=== PATIENT | female | born 1950 ===

== ENCOUNTER 2017-05-13 17:05 | Inpatient (IN) | payer MEDICARE ==
[2017-05-13 17:05] VITALS: BMI 23.8
[2017-05-13] MEDS ORDERED: Piperacill/Tazo 3.375gm in Dex 3.375 GM/50 ML BAG IVPB STA (17:39)
[2017-05-13] MEDS ORDERED: Vancomycin 1 gm/NS 200 ml 1 GM/200 ML BAG IVPB STA (17:39)
--- NOTE | 2017-05-13 17:51 | C.PDOC ---
History Of Present Illness 66 year old female with a history of Fibromyalgia, Osteoporosis, and End Stage Renal was brought to the ED via EMS with complaints of chest pain, fever, sweating, and full body aches beginning earlier today while completing hemodialysis. Patient is also complaining of large mass to left breast that has been followed by PMD. Patient was seen in [facility] on 04/24/2017 for pain to legs and arms and was diagnoses with pathological fractures to bilateral lower extremities and right upper extremities. Patient was seen in an ED on 04/25/2017 with similar complaints of total body pain. Patient is currently in a rehabilitation center for lower extremity and right upper extremity. Patient reports she has had mammograms regarding the breast mass with no answers. Patient denies injury, trauma, weakness, numbness, shortness of breath, or other complaints a this time. Home Lending Officer: Dr. Yeboah Time Seen by Provider: 05/13/17 17:14 Chief Complaint (Nursing): Chest Pain History Per: Patient History/Exam Limitations: no limitations Onset/Duration Of Symptoms: Worse Since (earlier today ) Current Symptoms Are (Timing): Still Present Quality: "Pain" Associated Symptoms: denies: Nausea, Dyspnea Modifying Factors: None Exacerbating Factors: None Alleviating Factors: None Recent travel outside of the [place]: No Additional History Per: EMS, Family, Prior Records Past Medical History Reviewed: Historical Data, Nursing Documentation, Vital Signs Vital Signs: Last Vital Signs Temp 101.0 F H 05/13/17 17:33 Pulse 80 05/13/17 17:34 Resp 18 05/13/17 17:33 BP 86/42 L 05/13/17 17:33 Pulse Ox 95 05/13/17 18:10 - Medical History PMH: Anxiety, Arthritis, Diverticulitis, Fibromyalgia, Fractures (Current right leg fx), HTN, Osteoporosis, Pancreatitis, End Stage Renal Disease, Chronic Kidney Disease, TIA Surgical History: Cholecystectomy - [facility] (04/28/17) BUNIONECT/SFT/OSTEOTOMY (06/04/13) IMMOBILIZATION OF LEFT LOWER LEG USING SPLINT (04/28/17) IMMOBILIZATION OF RIGHT UPPER EXTREMITY USING SPLINT (04/28/17) OPEN REDUCT-INT FIX TOE (06/04/13) Family History: States: Unknown Family Hx - Social History Hx Alcohol Use: No Hx Substance Use: No - Immunization History Hx Tetanus Toxoid Vaccination: No Hx Influenza Vaccination: No Hx Pneumococcal Vaccination: No Review Of Systems Constitutional: Positive for: Fever, Other (general full body aches ). Negative for: Chills Cardiovascular: Positive for: Chest Pain. Negative for: Palpitations Respiratory: Negative for: Cough, Shortness of Breath Skin: Positive for: Other (large breast mass ) Physical Exam - Physical Exam Appears: Non-toxic, No Acute Distress Skin: Warm, Dry, No Rash Head: Atraumatic, Normacephalic, No Tenderness Oral Mucosa: Dry Neck: Supple Chest: Symmetrical, No Deformity Cardiovascular: Rhythm Regular, No Murmur Respiratory: No Rales, No Rhonchi, No Wheezing, Other (clear to auscultation bilaterally ) Gastrointestinal/Abdominal: Soft, No Tenderness, No Distention, No Guarding, No Rebound Extremity: Other (bilateral lower extremities and right upper extremity are in splints ) Neurological/Psych: Oriented x3, Other (patient is cooperative ) ED Course And Treatment ECG: Interpreted By Me, Viewed By Me ECG Rhythm: Sinus Rhythm Interpretation Of ECG: No ST elevations or depressions. Rate From EC O2 Sat by Pulse Oximetry: 95 (RA) Pulse Ox Interpretation: Normal - Radiology CXR: Interpreted by Me, Viewed By Me CXR Interpretation: Yes: Other (Bilateral interstital changes ) Progress Note: VBG, EKG, CXR, labs, and blood work were ordered. Patient was given Vancomycin and Piperacillin/Tazobactam IVPB. Medical Decision Making Medical Decision Making: Case discussed with Dr. Douglass. She reports she was treating patient with Zithromycin. Patient has failed out patient treatment for a pneumonia. Disposition Discussed With : Cari Douglass Doctor Will See Patient In The: Hospital Counseled Patient/Family Regarding: Smoking Cessation - Disposition Disposition: HOSPITALIZED Disposition Time: 18:09 Condition: GUARDED Forms: [facility] (Salvadorean) - POA Present On Arrival: None - Clinical Impression Clinical Impression: Pneumonia, Fever - Scribe Statement The provider has reviewed the documentation as recorded by the Scribe Carolyn Altamirano All medical record entries made by the Scribe were at my direction and personally dictated by me. I have reviewed the chart and agree that the record accurately reflects my personal performance of the history, physical exam, medical decision making, and the department course for this patient. I have also personally directed, reviewed, and agree with the discharge instructions and disposition. Decision To Admit - Pt Status Changed To: Hospital Disposition Of: Inpatient - Admit Certification Admit to Inpatient:: After my assessment, the patient will require hospitalization for at least two midnights. This is because of the severity of symptoms shown, intensity of services needed, and/or the medical risk in this patient being treated as an outpatient. - InPatient: Physician Admission Certification: I certify that this patient requires 2 or more midnights of care for the following reason:: failled out patient therapy for pneumonia and fever - . Bed Request Type: Regular Patient Diagnosis: Pneumonia, Fever
--- NOTE | 2017-05-13 18:25 | RAD ---
PROCEDURE: CHEST RADIOGRAPH, 1 VIEW HISTORY: chest pain COMPARISON: None available. FINDINGS: LUNGS: Limited examination. Opacity at both lung bases. Rule out pneumonia. Follow-up advised. PLEURA: No pneumothorax or pleural fluid seen. CARDIOVASCULAR: Congestive change. OSSEOUS STRUCTURES: No significant abnormalities. VISUALIZED UPPER ABDOMEN: Normal. OTHER FINDINGS: Left subclavian vascular stent IMPRESSION: Bibasilar opacities. Congestive change. Pneumonia versus pulmonary edema. . Followup advised.
[2017-05-13 18:29] LABS: VENOUS BLOOD GAS BASE EXCESS 11.6 mmol/L (0.0-2.0); VENOUS BLOOD GAS PCO2 56 mmHg (40-60); VENOUS BLOOD PH 7.44 (7.32-7.43)
[2017-05-13 18:33] LABS: BASO # 0.1 K/uL (0.0-0.2); BASO % 0.2 % (0.0-2.0); EOS # 0.1 K/uL (0.0-0.7); EOS % 0.4 % (0.0-4.0); LYMPH # 0.9 K/uL (1.0-4.3); LYMPH % 3.6 % (20.0-40.0); MEAN CELL VOLUME 97.5 fL (81.0-99.0); MEAN CORPUSCULAR HEMOGLOBIN 32.2 pg (27.0-31.0); MEAN PLATELET VOLUME 8.8 fL (7.2-11.7); MONO # 3.1 K/uL (0.0-0.8); MONO % 11.9 % (0.0-10.0); PLATELET COUNT 251 K/uL (130-400); RED CELL DISTRIBUTION WIDTH 17.4 % (11.5-14.5); WHITE BLOOD COUNT 26.2 K/uL (4.8-10.8)
[2017-05-13 19:56] LABS: NEUTROPHIL 77 % (50-75); TOTAL CELLS COUNTED 100
[2017-05-13 20:43] LABS: BILIRUBIN,TOTAL 3.5 mg/dL (0.2-1.3); CALCIUM 8.9 mg/dl (8.6-10.4); POTASSIUM 3.4 mmol/L (3.6-5.2); TOTAL PROTEIN 7.2 g/dL (6.3-8.3)
[2017-05-13 20:48] LABS: ALB/GLOB RATIO 0.9 (1.0-2.1)
[2017-05-13 21:11] LABS: TROPONIN I 0.012 ng/mL (0.00-0.120)
[2017-05-13] MEDS ORDERED: Sod Polystyrene Sulf 15 gm/60 ml Susp PO PRN (22:42)
[2017-05-13] MEDS ORDERED: Oxycodone/Acetaminophen 5/325 mg Tab ONE (22:48)
[2017-05-13] MEDS: Oxycodone/Acetaminophen 5/325 mg Tab PO PRN (22:52)
[2017-05-14] MEDS ORDERED: Piperacill/Tazo 3.375gm in Dex 3.375 GM/50 ML BAG IVPB SCH ×2 (06:00→14:00)
[2017-05-14] MEDS: Albuterol-Ipratrop 3 mg / 0.5 (3 ml) UD INH SCH ×3 (07:53→20:19)
[2017-05-14] MEDS: Metoprolol Succinate 100 mg XL Tab PO SCH (09:10)
[2017-05-14] MEDS: Calcium-Vit D 500 mg-200 Units Tab UD PO SCH (09:11)
[2017-05-14] MEDS: Piperacill/Tazo 2.25gm in Dex 2.25 GM/50 ML BAG IVPB SCH ×3 (09:43→21:45)
[2017-05-14] MEDS ORDERED: [UNRECOGNIZED DRUG - OTHER] PO SCH (10:00)
--- NOTE | 2017-05-14 10:49 | CP.PCM.HP ---
History of Present Illness - History of Present Illness History of Present Illness: [place] sob cough aching body for few days and didnot imrove with treatment z pzck and tylenol and xray has bilateral infiltrate Present on Admission - Present on Admission Any Indicators Present on Admission: No Review of Systems - Review of Systems Systems not reviewed;Unavailable: Acuity of Condition - Constitutional Constitutional: Anorexia, Fatigue, Fever, Night Sweats - EENT Eyes: As Per HPI Ears: As Per HPI Nose/Mouth/Throat: As Per HPI - Breasts Additional comments: sw[place] red and tender and warm - Cardiovascular Cardiovascular: As Per HPI - Respiratory Respiratory: Chest Congestion - Gastrointestinal Gastrointestinal: Bloating, Constipation Additional comments: no bowel movements for 3 days - Genitourinary Genitourinary: As Per HPI - Reproductive: Female Reproductive:Female: As Per HPI - Menstruation Menstruation: As Per HPI, Post Menopausal - Musculoskeletal Additional comments: has fx arms and leg - Integumentary Integumentary: As Per HPI - Neurological Neurological: As Per HPI - Psychiatric Psychiatric: Depression - Endocrine Endocrine: As Per HPI - Hematologic/Lymphatic Hematologic: As Per HPI Past Patient History - Infectious Disease Hx of Infectious Diseases: None - Past Medical History & Family History Past Medical History?: Yes - Past Social History Smoking Status: Never Smoked - CARDIAC Hx Hypertension: Yes - PULMONARY Hx Respiratory Disorders: No - NEUROLOGICAL Hx Transient Ischemic Attacks (TIA): Yes - HEENT Hx HEENT Problems: No - RENAL Hx Chronic Kidney Disease: Yes Date of Last Dialysis Treatment: 05/13/17 - ENDOCRINE/METABOLIC Hx Endocrine Disorders: No - HEMATOLOGICAL/ONCOLOGICAL Hx Blood Disorders: Yes Hx Blood Transfusions: Yes Hx Blood Transfusion Reaction: Yes Hx Shingles: Yes (right arm) - INTEGUMENTARY Hx Dermatological Problems: No - MUSCULOSKELETAL/RHEUMATOLOGICAL Hx Arthritis: Yes Hx Falls: Yes Hx Fractures: Yes (Current right leg fx, RUE, LLE) Hx Osteoporosis: Yes - GASTROINTESTINAL Hx Diverticulitis: Yes Hx Pancreatitis: Yes - GENITOURINARY/GYNECOLOGICAL Hx Genitourinary Disorders: No Other/Comment: DIALYSIS PATIENT - PSYCHIATRIC Hx Anxiety: Yes Hx Substance Use: No - SURGICAL HISTORY Hx Cholecystectomy: Yes - ANESTHESIA Hx Anesthesia: Yes Hx Anesthesia Reactions: No Hx Malignant Hyperthermia: No Meds Allergies/Adverse Reactions: Allergies Allergy/AdvReac Type Severity Reaction Status Date / Time aspirin Allergy NAUSEA Verified 05/13/17 17:14 lactose Allergy NAUSEA Verified 05/13/17 17:14 Physical Exam - Constitutional Appears: In Acute Distress - Head Exam Head Exam: ATRAUMATIC - Eye Exam Eye Exam: Normal appearance Pupil Exam: NORMAL ACCOMODATION - ENT Exam ENT Exam: Mucous Membranes Moist - Neck Exam Neck exam: Positive for: Full Rom - Respiratory Exam Respiratory Exam: Decreased Breath Sounds, Rales - Cardiovascular Exam Cardiovascular Exam: REGULAR RHYTHM - GI/Abdominal Exam GI & Abdominal Exam: Distended - Rectal Exam Rectal Exam: NORMAL INSPECTION - Exam Exam: NORMAL INSPECTION - Extremities Exam Extremities exam: Positive for: normal inspection - Back Exam Back exam: NORMAL INSPECTION - Neurological Exam Neurological exam: Oriented x3 - Psychiatric Exam Psychiatric exam: Normal Affect - Skin Skin Exam: Normal Color Results - Vital Signs Recent Vital Signs: Last Vital Signs Temp 98.1 F 05/14/17 07:58 Pulse 66 05/14/17 07:58 Resp 18 05/14/17 07:58 BP 124/63 05/14/17 07:58 Pulse Ox 97 05/14/17 07:58 - Labs Result Diagrams: 05/13/17 18:24 05/13/17 20:17 Labs: Laboratory Results - last 24 hr 05/13/17 05/13/17 05/13/17 18:24 18:25 20:17 WBC 26.2 H D RBC 2.88 L Hgb 9.3 L Hct 28.0 L MCV 97.5 D MCH 32.2 H MCHC 33.0 RDW 17.4 H Plt Count 251 MPV 8.8 Neut % (Auto) 83.9 H Lymph % (Auto) 3.6 L [place] % (Auto) 11.9 H Eos % (Auto) 0.4 Baso % (Auto) 0.2 Neut # 22.0 H Lymph # 0.9 L [place] # 3.1 H Eos # 0.1 Baso # 0.1 Neutrophils % (Manual) 77 H Lymphocytes % (Manual) 11 L Monocytes % (Manual) 12 H Platelet Estimate Normal Poikilocytosis (manual Slight Anisocytosis (manual) Slight pO2 26 L VBG pH 7.44 H VBG pCO2 56 VBG HCO3 32.7 VBG Total CO2 39.7 H VBG O2 Sat (Calc) 57.1 VBG Base Excess 11.6 H VBG Potassium 6.0 H Sodium 137.0 135 Chloride 103.0 92 L Glucose 86 Lactate 1.9 Potassium 3.4 L Carbon Dioxide 32 H Anion Gap 14 BUN 19 H Creatinine 2.5 H Est GFR ( Amer) 23 Est GFR (Non-Af Amer) 19 Random Glucose 85 Calcium 8.9 Total Bilirubin 3.5 H AST 36 ALT 31 Alkaline Phosphatase 355 H D Troponin I 0.0120 NT-Pro-B Natriuret Pep 950812 H Total Protein 7.2 Albumin 3.4 L D Globulin 3.8 Albumin/Globulin Ratio 0.9 L Venous Blood Potassium 6.0 H Assessment & Plan - Assessment and Plan (Free Text) Assessment: ac bi;lateral pnumonia ESRF FX ARM AND LEG Plan: PER PRDERS - Date & Time Date: 05/14/17 Time: 10:54
[2017-05-14] MEDS: Azithromycin 500 MG in Sodium Chloride 0.9% 250 ML IVPB SCH (10:55)
[2017-05-14] MEDS ORDERED: Sod Polystyrene Sulf 15 gm/60 ml Susp PO PRN (12:49)
--- NOTE | 2017-05-14 13:28 | CARD ---
APPROVED REPORT EKG Measurement Heart [id number] <Conclusion> Normal sinus rhythm Cannot rule out Anterior infarct, age undetermined Abnormal ECG
[2017-05-14] MEDS: Oxycodone/Acetaminophen 5/325 mg Tab PO PRN ×2 (14:04→22:05)
--- NOTE | 2017-05-14 16:02 | RAD ---
PROCEDURE: Radiographs of the Right Forearm HISTORY: fracture COMPARISON: Comparison is made to the previous exam dated 04/28/2017. TECHNIQUE: Frontal and lateral views obtained. FINDINGS: BONES: The right forearm is again seen in cast which limits the evaluation for fine details. Subacute fracture at the midshaft of the right radius and ulnar bones are again seen. The right radius fracture is mildly displaced. No evidence of significant callus formation noted around the right radius fracture. Callus formation is again noted around the right ulnar fracture. JOINT SPACES: Unremarkable. OTHER FINDINGS: None. IMPRESSION: Findings have not significantly changed when compared to the previous exam. Angulated mildly displaced fracture at the midshaft of the right radius is again noted without evidence of significant callus formation. Healed fracture at the midshaft of the right ulnar bone surrounding with callus formation is again noted.
--- NOTE | 2017-05-14 16:04 | RAD ---
PROCEDURE: Left Ankle Radiographs. HISTORY: fracture COMPARISON: Comparison is made to the previous study dated 04/28/2017 FINDINGS: BONES: The left ankle is again seen in cast which limits the evaluation for fine details. Diffuse osteopenia is again noted. There are subacute fractures at the distal left tibia and fibula again noted with adjacent callus formation. No evidence of significant interval change when compared to the previous exam. JOINTS: Normal. No osteoarthritis. Ankle mortise maintained. Talar dome intact SOFT TISSUES: Normal. OTHER FINDINGS: None. IMPRESSION: Subacute fracture at the distal left tibia and fibula are again noted surrounding with small callus formation. No significant interval change since the previous study. Mild diffuse osteopenia.
--- NOTE | 2017-05-14 17:49 | CP.PCM.CON ---
History of Present Illness - History of Present Illness History of Present Illness: Orthopedic consultation Dr. Pineda 66F known to service admitted for sepsis. She admits to feeling weak and shaking chills. Denies any CP/SOB/numbness/tinglilng. She was last seen in house approx 3 weeks ago, and she did not follow up with ortho as instructed in office. She had right midshaft both bone forearm fracture , healed ulna and non union of radius. She says in ER they were having difficulty finding an IV and the splint was removed. She has not been weight bearing, and says the splint to her left leg is the same. She has a fracture boot from district gauger on her left ankle. When asked why she did not follow up as instructed, she says that she told the rehab she needed to see the doctor, but they did not arrange the appointment. Review of Systems - Review of Systems All systems: reviewed and no additional remarkable complaints except - Constitutional Constitutional: As Per HPI - Cardiovascular Cardiovascular: As Per HPI - Respiratory Respiratory: As Per HPI - Gastrointestinal Additional comments: denies - Musculoskeletal Musculoskeletal: As Per HPI - Neurological Neurological: As Per HPI - Hematologic/Lymphatic Hematologic: absent: As Per HPI, Easy Bleeding, Easy Bruising, Lymphadenopathy, Other Past Patient History - Infectious Disease Hx of Infectious Diseases: None - Past Medical History & Family History Past Medical History?: Yes Past Family History: Reviewed and not pertinent - Past Social History Smoking Status: Never Smoked - CARDIAC Hx Hypertension: Yes - PULMONARY Hx Respiratory Disorders: No - NEUROLOGICAL HX Cerebrovascular Accident: Yes (TIA) - HEENT Hx HEENT Problems: No - RENAL Hx Renal Failure: Yes (ESRD, CKD) - ENDOCRINE/METABOLIC Hx Endocrine Disorders: No - HEMATOLOGICAL/ONCOLOGICAL Hx Blood Disorders: Yes Hx Blood Transfusions: Yes Hx Blood Transfusion Reaction: Yes Hx Shingles: Yes (right arm) - INTEGUMENTARY Hx Dermatological Problems: No - MUSCULOSKELETAL/RHEUMATOLOGICAL Hx Arthritis: Yes (OA) - GASTROINTESTINAL Hx Diverticulitis: Yes Hx Pancreatitis: Yes - GENITOURINARY/GYNECOLOGICAL Hx Genitourinary Disorders: No Other/Comment: DIALYSIS PATIENT - PSYCHIATRIC Hx Anxiety: Yes Hx Substance Use: No - SURGICAL HISTORY Hx Cholecystectomy: Yes - ANESTHESIA Hx Anesthesia: Yes Hx Anesthesia Reactions: No Hx Malignant Hyperthermia: No Meds Allergies/Adverse Reactions: Allergies Allergy/AdvReac Type Severity Reaction Status Date / Time aspirin Allergy NAUSEA Verified 05/13/17 17:14 lactose Allergy NAUSEA Verified 05/13/17 17:14 - Medications Medications: Current Medications Acetaminophen (Tylenol 325mg Tab) 650 mg PO Q6 PRN PRN Reason: Fever >100.4 F Albuterol/Ipratropium (Duoneb 3 Mg/0.5 Mg (3 Ml) Ud) 3 ml INH RTID [facility] Last Admin: 05/14/17 13:30 Dose: 3 ml Calcium/Vitamin D (Oyster Shell Calcium/Vitamin D 500 Mg-200 Iu) 1 tab PO DAILY [facility] Last Admin: 05/14/17 09:11 Dose: 1 tab Clonidine HCl (Catapres) 0.1 mg PO HS [facility] Docusate Sodium (Colace) 100 mg PO BID PRN PRN Reason: Constipation Heparin Sodium (Porcine) (Heparin) 5,000 units SC Q8 [facility] Last Admin: 05/14/17 14:13 Dose: 5,000 units Piperacillin Sod/Tazobactam Sod (Zosyn 2.25 Gm Iv Premix) 2.25 gm in 50 mls @ 100 mls/hr IVPB Q8 [facility] Last Admin: 05/14/17 14:06 Dose: 100 mls/hr Azithromycin 500 mg/ Sodium (Chloride) 250 mls @ 250 mls/hr IVPB DAILY [facility] Last Admin: 05/14/17 10:55 Dose: 250 mls/hr Metoprolol Succinate (Toprol Xl) 100 mg PO DAILY [facility] Last Admin: 05/14/17 09:10 Dose: 100 mg Oxycodone/Acetaminophen (Percocet 5/325 Mg Tab) 1 tab PO Q8 PRN PRN Reason: Pain, moderate (4-7) Stop: 05/17/17 06:01 Last Admin: 05/14/17 14:04 Dose: 1 tab Oxycodone/Acetaminophen (Percocet 5/325 Mg Tab) 1 tab PO Q4H PRN PRN Reason: Pain, severe (8-10) Stop: 05/16/17 22:43 Sertraline HCl (Zoloft) 100 mg PO DAILY [facility] Last Admin: 05/14/17 09:10 Dose: 100 mg Sodium Polystyrene Sulfonate (Kayexalate Susp) 15 gm PO ONCE PRN PRN Reason: K LEVEL ABOVE 5.5 Physical Exam - Constitutional Appears: No Acute Distress - Respiratory Exam Respiratory Exam: NORMAL BREATHING PATTERN - Cardiovascular Exam Additional comments: +radial pulse - Expanded Upper Extremities Exam Right Upper Arm exam: full ROM, normal inspection Forearm Wrist exam: deformity, erythema (two slabs of splint material on forearm and around elbow, noted increased deformity from last exam, however radius still mobile.), swelling Neuro motor exam: finger 2-5 abduction intact, thumb abduction, thumb IP flexion intact, thumb opposition intact, wrist extension intact Neurosensory exam: median nerve intact, radial nerve intact, ulnar nerve intact Vascular exam: radial pulse - Expanded Lower Extremities Exam Left Foot/Toe exam: full ROM (+ROM toes flex/ext, toes warm, sensation intact, splint intact) - Neurological Exam Neurological exam: Alert, Oriented x3 - Psychiatric Exam Psychiatric exam: Normal Affect, Normal Mood - Skin Skin Exam: Dry, Intact, Normal Color, Warm Results - Vital Signs Recent Vital Signs: Last Vital Signs Temp 98.7 F 05/14/17 17:14 Pulse 74 05/14/17 17:14 Resp 20 05/14/17 17:14 BP 139/68 05/14/17 17:14 Pulse Ox 97 05/14/17 17:14 - Labs Result Diagrams: 05/13/17 18:24 05/13/17 20:17 Labs: Laboratory Results - last 24 hr 05/13/17 05/13/17 05/13/17 18:24 18:25 20:17 WBC 26.2 H D RBC 2.88 L Hgb 9.3 L Hct 28.0 L MCV 97.5 D MCH 32.2 H MCHC 33.0 RDW 17.4 H Plt Count 251 MPV 8.8 Neut % (Auto) 83.9 H Lymph % (Auto) 3.6 L [place] % (Auto) 11.9 H Eos % (Auto) 0.4 Baso % (Auto) 0.2 Neut # 22.0 H Lymph # 0.9 L [place] # 3.1 H Eos # 0.1 Baso # 0.1 Neutrophils % (Manual) 77 H Lymphocytes % (Manual) 11 L Monocytes % (Manual) 12 H Platelet Estimate Normal Poikilocytosis (manual Slight Anisocytosis (manual) Slight pO2 26 L VBG pH 7.44 H VBG pCO2 56 VBG HCO3 32.7 VBG Total CO2 39.7 H VBG O2 Sat (Calc) 57.1 VBG Base Excess 11.6 H VBG Potassium 6.0 H Sodium 137.0 135 Chloride 103.0 92 L Glucose 86 Lactate 1.9 Potassium 3.4 L Carbon Dioxide 32 H Anion Gap 14 BUN 19 H Creatinine 2.5 H Est GFR ( Amer) 23 Est GFR (Non-Af Amer) 19 Random Glucose 85 Calcium 8.9 Total Bilirubin 3.5 H AST 36 ALT 31 Alkaline Phosphatase 355 H D Troponin I 0.0120 NT-Pro-B Natriuret Pep 799966 H Total Protein 7.2 Albumin 3.4 L D Globulin 3.8 Albumin/Globulin Ratio 0.9 L Venous Blood Potassium 6.0 H Assessment & Plan (1) 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 Risks/benefits/alt explained, patient verbally consented to procedure. Time out performed. Closed reduction of right radius and sugar tong splint applied. Patient tolerated well. NVID pre and post procedure. post reduction films improved, but still sig angulation. Will elevate hand and let swelling improved, and consider repeat closed reduction and cast application for better immobilization. Status: Chronic (2) Closed fracture of shaft of right radius and ulna Status: Chronic (3) Closed fracture of distal end of left fibula and tibia Assessment and Plan: imaging reviewed, shows more callus, maintained position of stress fractures. continue NWB/splint elevate will cast prior to d/c d/w Dr. Pineda, agrees with above Status: Chronic Radiology Interpretation - Billing Analyst Billing Analyst:: Radiologist, Quality Assurance Practice Manager - Notes: Notes:: Patient Name / ID : BRYANT DARDEN / [id number] Exam Date : 05/14/2017 12:45:07 ( Approved ) Study Comment : Sex / Age : F / 66Y Creator : Willy Borrero MD Dictator : Willy Borrero MD Client Advocate : Commercial Drafter : Willy Borrero MD Approver2 : Report Date : 05/14/2017 15:58:45 My Comment : PROCEDURE: Left Ankle Radiographs. HISTORY: fracture COMPARISON: Comparison is made to the previous study dated 04/28/2017 FINDINGS: BONES: The left ankle is again seen in cast which limits the evaluation for fine details. Diffuse osteopenia is again noted. There are subacute fractures at the distal left tibia and fibula again noted with adjacent callus formation. No evidence of significant interval change when compared to the previous exam. JOINTS: Normal. No osteoarthritis. Ankle mortise maintained. Talar dome intact SOFT TISSUES: Normal. OTHER FINDINGS: None. IMPRESSION: Subacute fracture at the distal left tibia and fibula are again noted surrounding with small callus formation. No significant interval change since the previous study. Mild diffuse osteopenia. atient Name / ID : BRYANT DARDEN / [id number] Exam Date : 05/14/2017 12:45:07 ( Approved ) Study Comment : Sex / Age : F / 66Y Creator : Willy Borrero MD Dictator : Willy Borrero MD Client Advocate : Commercial Drafter : Willy Borrero MD Approver2 : Report Date : 05/14/2017 15:57:12 My Comment : PROCEDURE: Radiographs of the Right Forearm HISTORY: fracture COMPARISON: Comparison is made to the previous exam dated 04/28/2017. TECHNIQUE: Frontal and lateral views obtained. FINDINGS: BONES: The right forearm is again seen in cast which limits the evaluation for fine details. Subacute fracture at the midshaft of the right radius and ulnar bones are again seen. The right radius fracture is mildly displaced. No evidence of significant callus formation noted around the right radius fracture. Callus formation is again noted around the right ulnar fracture. JOINT SPACES: Unremarkable. OTHER FINDINGS: None. IMPRESSION: Findings have not significantly changed when compared to the previous exam. Angulated mildly displaced fracture at the midshaft of the right radius is again noted without evidence of significant callus formation. Healed fracture at the midshaft of the right ulnar bone surrounding with callus formation is again noted. - Radiology Interpretation #2 Interpretation: Post reduction films ap/lat of right forearm show improved angulation from ER films, but still some angulation and displacement Left ankle films do show slightly more callus to the tibial fracture than on prior films Procedures Attestation:: I certify that I have explained the specified Operation(s) or Procedure(s), risks, benefits and reasonable alternatives to the Patient and/or other person responsible. The opportunity was given to ask questions and all questions answered - Orthopedic Fracture Reduction Fracture #1 Consent Obtained: verbal consent Time Out Performed: Yes Side: right Fracture Reduction Location: radius Analgesia: none Technique: direct manipulation Post Reduction X-rays Demonstrate: acceptable reduction Post-Reduction Neuro Exam: intact Post-Reduction Vascular Exam: intact Splint Applied: Yes Patient Tolerated Procedure: well - Orthopedic Splinting/Casting Injury #1 Side: right Upper Extremity Injury Location: forearm Upper Extremity Immobilizer: sugar tong splint
[2017-05-15] MEDS: Piperacill/Tazo 2.25gm in Dex 2.25 GM/50 ML BAG IVPB SCH ×3 (05:29→22:00)
[2017-05-15] MEDS: Albuterol-Ipratrop 3 mg / 0.5 (3 ml) UD INH SCH ×3 (07:57→22:31)
[2017-05-15] MEDS: Oxycodone/Acetaminophen 5/325 mg Tab PO PRN ×2 (08:17→15:23)
--- NOTE | 2017-05-15 08:46 | CP.PCM.CON ---
History of Present Illness - History of Present Illness History of Present Illness: 66 year old female with a history of Fibromyalgia, Osteoporosis, and End Stage Renal was brought to the ED via EMS with complaints of chest pain, fever, sweating, and full body aches beginning earlier today while completing hemodialysis. Patient is also complaining of large mass to left breast that has been followed by PMD. Patient was seen in [facility] on 04/24/2017 for pain to legs and arms and was diagnoses with pathological fractures to bilateral lower extremities and right upper extremities. Patient was seen in an ED on 04/25/2017 with similar complaints of total body pain. Patient is currently in a rehabilitation center for lower extremity and right upper extremity. Patient reports she has had mammograms regarding the breast mass with no answers. Patient denies injury, trauma, weakness, numbness, shortness of breath, or other complaints a this time. PMH: ESRD FAILED RENAL TRANSPLANT SEVERE SECONDARY HYPERPARATHYROIDISM HTN COPD CARDIOMYOPATHY PSH: RENAL TRANSPLANT AV FISTULA REPAIR OF FRACTURES- Johnny Luna Review of Systems - Constitutional Constitutional: Chills, Fatigue, Weakness - EENT Eyes: Blurred Vision Ears: absent: As Per HPI, Decreased Hearing, Ear Discharge, Ear Pain, Tinnitus, Abnormal Hearing, Disequilibrium, Dizziness, Other Nose/Mouth/Throat: absent: As Per HPI, Epistaxis, Nasal Congestion, Nasal Discharge, Nasal Obstruction, Nasal Trauma, Nose Pain, Post Nasal Drip, Sinus Pain, Sinus Pressure, Bleeding Gums, Change in Voice, Dental Pain, Dry Mouth, Dysphagia, Halitosis, Hoarsness, Lip Swelling, Mouth Lesions, Mouth Pain, Odynophagia, Sore Throat, Throat Swelling, Tongue Swelling, Facial Pain, Neck Pain, Neck Mass, Other - Cardiovascular Cardiovascular: Chest Pain with Activity, Dyspnea on Exertion - Respiratory Respiratory: Cough, Dyspnea on Exertion - Gastrointestinal Gastrointestinal: Dyspepsia, Nausea - Genitourinary Genitourinary: As Per HPI - Musculoskeletal Musculoskeletal: Muscle Cramps, Muscle Weakness, Stiffness - Neurological Neurological: Weakness Past Patient History - Infectious Disease Hx of Infectious Diseases: None - Past Medical History & Family History Past Medical History?: Yes Pertinent Family History: BROTHER ON DIALYSIS - Past Social History Smoking Status: Never Smoked Chewing Tobacco Use: No Cigar Use: No Alcohol: None Drugs: Denies Home Situation {Lives}: [facility] - CARDIAC Hx Cardiac Disorders: Yes Hx Congestive Heart Failure: Yes Hx Hypertension: Yes - PULMONARY Hx Respiratory Disorders: No - NEUROLOGICAL HX Cerebrovascular Accident: Yes (TIA) - HEENT Hx HEENT Problems: No - RENAL Hx Renal Failure: Yes (ESRD, CKD) - ENDOCRINE/METABOLIC Hx Endocrine Disorders: No - HEMATOLOGICAL/ONCOLOGICAL Hx Blood Disorders: Yes Hx Blood Transfusions: Yes Hx Blood Transfusion Reaction: Yes Hx Shingles: Yes (right arm) - INTEGUMENTARY Hx Dermatological Problems: No - MUSCULOSKELETAL/RHEUMATOLOGICAL Hx Arthritis: Yes (OA) - GASTROINTESTINAL Hx Diverticulitis: Yes Hx Pancreatitis: Yes - GENITOURINARY/GYNECOLOGICAL Hx Genitourinary Disorders: No Other/Comment: DIALYSIS PATIENT - PSYCHIATRIC Hx Anxiety: Yes Hx Substance Use: No - SURGICAL HISTORY Hx Cholecystectomy: Yes - ANESTHESIA Hx Anesthesia: Yes Hx Anesthesia Reactions: No Hx Malignant Hyperthermia: No Meds Allergies/Adverse Reactions: Allergies Allergy/AdvReac Type Severity Reaction Status Date / Time aspirin Allergy NAUSEA Verified 05/13/17 17:14 lactose Allergy NAUSEA Verified 05/13/17 17:14 - Medications Medications: Current Medications Acetaminophen (Tylenol 325mg Tab) 650 mg PO Q6 PRN PRN Reason: Fever >100.4 F Albuterol/Ipratropium (Duoneb 3 Mg/0.5 Mg (3 Ml) Ud) 3 ml INH RTID [facility] Last Admin: 05/15/17 07:57 Dose: 3 ml Calcium/Vitamin D (Oyster Shell Calcium/Vitamin D 500 Mg-200 Iu) 1 tab PO DAILY [facility] Last Admin: 05/14/17 09:11 Dose: 1 tab Clonidine HCl (Catapres) 0.1 mg PO HS [facility] Last Admin: 05/14/17 21:45 Dose: 0.1 mg Docusate Sodium (Colace) 100 mg PO BID PRN PRN Reason: Constipation Heparin Sodium (Porcine) (Heparin) 5,000 units SC Q8 [facility] Last Admin: 05/15/17 05:30 Dose: 5,000 units Piperacillin Sod/Tazobactam Sod (Zosyn 2.25 Gm Iv Premix) 2.25 gm in 50 mls @ 100 mls/hr IVPB Q8 [facility] Last Admin: 05/15/17 05:29 Dose: 100 mls/hr Azithromycin 500 mg/ Sodium (Chloride) 250 mls @ 250 mls/hr IVPB DAILY [facility] Last Admin: 05/14/17 10:55 Dose: 250 mls/hr Metoprolol Succinate (Toprol Xl) 100 mg PO DAILY [facility] Last Admin: 05/14/17 09:10 Dose: 100 mg Oxycodone/Acetaminophen (Percocet 5/325 Mg Tab) 1 tab PO Q8 PRN PRN Reason: Pain, moderate (4-7) Stop: 05/17/17 06:01 Last Admin: 05/15/17 08:17 Dose: 1 tab Oxycodone/Acetaminophen (Percocet 5/325 Mg Tab) 1 tab PO Q4H PRN PRN Reason: Pain, severe (8-10) Stop: 05/16/17 22:43 Sertraline HCl (Zoloft) 100 mg PO DAILY [facility] Last Admin: 05/14/17 09:10 Dose: 100 mg Sodium Polystyrene Sulfonate (Kayexalate Susp) 15 gm PO ONCE PRN PRN Reason: K LEVEL ABOVE 5.5 Physical Exam - Constitutional Appears: Non-toxic, Chronically Ill - Head Exam Head Exam: ATRAUMATIC, NORMAL INSPECTION - Eye Exam Eye Exam: EOMI, Normal appearance - Neck Exam Neck exam: Positive for: Normal Inspection. Negative for: Tenderness - Respiratory Exam Respiratory Exam: Decreased Breath Sounds, Rhonchi - Cardiovascular Exam Cardiovascular Exam: REGULAR RHYTHM, +S1 - GI/Abdominal Exam GI & Abdominal Exam: Soft. absent: Tenderness - Extremities Exam Extremities exam: Positive for: normal inspection, tenderness - Neurological Exam Neurological exam: Alert, CN II-XII Intact, Oriented x3 - Skin Skin Exam: Dry, Warm Results - Vital Signs Recent Vital Signs: Last Vital Signs Temp 98.2 F 05/14/17 23:18 Pulse 79 05/14/17 23:18 Resp 20 05/14/17 23:18 BP 122/63 05/14/17 23:18 Pulse Ox 99 05/14/17 23:18 - Labs Result Diagrams: 05/13/17 18:24 05/13/17 20:17 Assessment & Plan (1) Failed kidney transplant Status: Acute (2) CHF (congestive heart failure) Status: Acute (3) End stage renal disease Status: Acute (4) HTN (hypertension) Status: Acute (5) Closed fracture of distal end of left fibula and tibia Status: Chronic - Assessment and Plan (Free Text) Plan: dialysis today blood cultures iv ABs ortho f/u for casts and recent fxs
[2017-05-15] MEDS: Azithromycin 500 MG in Sodium Chloride 0.9% 250 ML IVPB SCH ×2 (09:57→16:30)
[2017-05-15] MEDS: Calcium-Vit D 500 mg-200 Units Tab UD PO SCH (09:57)
[2017-05-15] MEDS: Metoprolol Succinate 100 mg XL Tab PO SCH (09:57)
[2017-05-15 10:45] LABS: BASO # 0.1 K/uL (0.0-0.2); BASO % 0.4 % (0.0-2.0); EOS # 0.5 K/uL (0.0-0.7); EOS % 2.6 % (0.0-4.0); HEMATOCRIT 26.4 % (34.0-47.0); LYMPH # 1.4 K/uL (1.0-4.3); LYMPH % 7.9 % (20.0-40.0); MEAN CELL VOLUME 96.2 fL (81.0-99.0); MEAN CORPUSCULAR HGB CONC 33.3 g/dL (33.0-37.0); MEAN PLATELET VOLUME 8.1 fL (7.2-11.7); MONO # 1.8 K/uL (0.0-0.8); MONO % 10.2 % (0.0-10.0); NRBC % 0.1 % (0.0-2.0); PLATELET COUNT 240 K/uL (130-400); RED CELL DISTRIBUTION WIDTH 17.1 % (11.5-14.5)
[2017-05-15 11:17] LABS: CALCIUM 9.3 mg/dl (8.6-10.4); POTASSIUM 3.8 mmol/L (3.6-5.2)
--- NOTE | 2017-05-15 11:18 | CP.PCM.PN ---
Subjective - Date & Time of Evaluation Date of Evaluation: 05/15/17 Time of Evaluation: 11:15 - Subjective Subjective: less cough today no fever blood culture positive bact Objective - Vital Signs/Intake and Output Vital Signs (last 24 hours): Temp Pulse Resp BP Pulse Ox 97.7 F 77 16 127/54 L 98 05/15/17 10:30 05/15/17 10:30 05/15/17 10:30 05/15/17 10:30 05/15/17 08:05 Intake and Output: 05/15/17 05/15/17 06:59 18:59 Intake Total 550 Balance 550 - Medications Medications: Current Medications Acetaminophen (Tylenol 325mg Tab) 650 mg PO Q6 PRN PRN Reason: Fever >100.4 F Albuterol/Ipratropium (Duoneb 3 Mg/0.5 Mg (3 Ml) Ud) 3 ml INH RTID [facility] Last Admin: 05/15/17 07:57 Dose: 3 ml Calcium/Vitamin D (Oyster Shell Calcium/Vitamin D 500 Mg-200 Iu) 1 tab PO DAILY [facility] Last Admin: 05/15/17 09:57 Dose: Not Given Clonidine HCl (Catapres) 0.1 mg PO HS [facility] Last Admin: 05/14/17 21:45 Dose: 0.1 mg Docusate Sodium (Colace) 100 mg PO BID PRN PRN Reason: Constipation Epoetin Santo (Procrit) 10,000 unit IV TTS [facility] Heparin Sodium (Porcine) (Heparin) 5,000 units SC Q8 [facility] Last Admin: 05/15/17 05:30 Dose: 5,000 units Piperacillin Sod/Tazobactam Sod (Zosyn 2.25 Gm Iv Premix) 2.25 gm in 50 mls @ 100 mls/hr IVPB Q8 [facility] Last Admin: 05/15/17 05:29 Dose: 100 mls/hr Azithromycin 500 mg/ Sodium (Chloride) 250 mls @ 250 mls/hr IVPB DAILY [facility] Last Admin: 05/15/17 09:57 Dose: Not Given Metoprolol Succinate (Toprol Xl) 100 mg PO DAILY [facility] Last Admin: 05/15/17 09:57 Dose: Not Given Oxycodone/Acetaminophen (Percocet 5/325 Mg Tab) 1 tab PO Q8 PRN PRN Reason: Pain, moderate (4-7) Stop: 05/17/17 06:01 Last Admin: 05/15/17 08:17 Dose: 1 tab Oxycodone/Acetaminophen (Percocet 5/325 Mg Tab) 1 tab PO Q4H PRN PRN Reason: Pain, severe (8-10) Stop: 05/16/17 22:43 Sertraline HCl (Zoloft) 100 mg PO DAILY [facility] Last Admin: 05/15/17 09:57 Dose: Not Given Sodium Polystyrene Sulfonate (Kayexalate Susp) 15 gm PO ONCE PRN PRN Reason: K LEVEL ABOVE 5.5 - Labs Labs: 05/15/17 10:37 05/13/17 20:17 - Constitutional Appears: Non-toxic - Head Exam Head Exam: NORMAL INSPECTION - Eye Exam Eye Exam: Normal appearance Pupil Exam: NORMAL ACCOMODATION - ENT Exam ENT Exam: Mucous Membranes Moist - Neck Exam Neck Exam: Full ROM - Respiratory Exam Respiratory Exam: NORMAL BREATHING PATTERN - Cardiovascular Exam Cardiovascular Exam: REGULAR RHYTHM - GI/Abdominal Exam GI & Abdominal Exam: Normal Bowel Sounds - Rectal Exam Rectal Exam: NORMAL INSPECTION - Extremities Exam Additional comments: fx left leg and foot and r upper ext - Back Exam Back Exam: NORMAL INSPECTION - Psychiatric Exam Psychiatric exam: Normal Affect - Skin Skin Exam: Dry Assessment and Plan - Assessment and Plan (Free Text) Assessment: bactreamia posible pnumonia fx upper and lower ext ESRF Plan: PER ORDERS
[2017-05-15 11:23] LABS: EOSINOPHIL 1 % (0-4); NEUTROPHIL 73 % (50-75); REACTIVE LYMPHOCYTES 2 % (0-0); TOTAL CELLS COUNTED 100
[2017-05-15 11:27] LABS: LARGE PLATELETS PRESENT
[2017-05-15] MEDS: Epoetin Alfa 10,000 unit/ml Dialysis IV SCH (13:24)
--- NOTE | 2017-05-15 16:32 | RAD ---
PROCEDURE: Radiographs of the Right Forearm HISTORY: post reduction COMPARISON: Comparison is made to the previous same-day exam. TECHNIQUE: Frontal and lateral views obtained. FINDINGS: BONES: Again seen is acute mildly displaced fracture at the midshaft of the left radius. Again seen is subacute or old fracture at the midshaft of the right eye mass surrounding with callus formation. JOINT SPACES: Unremarkable. OTHER FINDINGS: None. IMPRESSION: Re- demonstration of acute mildly angulated fracture at the midshaft of the right radius. Fracture at the midshaft of the right ulna surrounding with callus formation is also again noted.
[2017-05-16] MEDS: Piperacill/Tazo 2.25gm in Dex 2.25 GM/50 ML BAG IVPB SCH ×3 (06:03→21:05)
[2017-05-16] MEDS: Oxycodone/Acetaminophen 5/325 mg Tab PO PRN ×2 (08:38→21:09)
[2017-05-16] MEDS: Albuterol-Ipratrop 3 mg / 0.5 (3 ml) UD INH SCH ×3 (09:12→20:55)
[2017-05-16] MEDS: Metoprolol Succinate 100 mg XL Tab PO SCH (09:16)
[2017-05-16] MEDS: Calcium-Vit D 500 mg-200 Units Tab UD PO SCH (09:16)
--- NOTE | 2017-05-16 09:30 | CP.PCM.PN ---
Subjective - Date & Time of Evaluation Date of Evaluation: 05/16/17 Time of Evaluation: 09:27 - Subjective Subjective: s/p dialysis 05/15- UF 2500ml + blood cultures- B strep- on IV ABs feels better today might have cast on left LE as per ortho Objective - Vital Signs/Intake and Output Vital Signs (last 24 hours): Temp Pulse Resp BP Pulse Ox 98 F 78 20 137/70 99 05/16/17 00:00 05/16/17 00:00 05/16/17 00:00 05/16/17 00:00 05/16/17 00:00 Intake and Output: 05/16/17 05/16/17 06:59 18:59 Intake Total 320 Balance 320 - Medications Medications: Current Medications Acetaminophen (Tylenol 325mg Tab) 650 mg PO Q6 PRN PRN Reason: Fever >100.4 F Albuterol/Ipratropium (Duoneb 3 Mg/0.5 Mg (3 Ml) Ud) 3 ml INH RTID [facility] Last Admin: 05/16/17 09:12 Dose: 3 ml Calcium/Vitamin D (Oyster Shell Calcium/Vitamin D 500 Mg-200 Iu) 1 tab PO DAILY [facility] Last Admin: 05/16/17 09:16 Dose: 1 tab Clonidine HCl (Catapres) 0.1 mg PO HS [facility] Last Admin: 05/15/17 22:01 Dose: 0.1 mg Docusate Sodium (Colace) 100 mg PO BID PRN PRN Reason: Constipation Last Admin: 05/16/17 09:16 Dose: 100 mg Epoetin Santo (Procrit) 10,000 unit IV TTS [facility] Last Admin: 05/15/17 13:24 Dose: 10,000 unit Heparin Sodium (Porcine) (Heparin) 5,000 units SC Q8 [facility] Last Admin: 05/16/17 06:01 Dose: 5,000 units Piperacillin Sod/Tazobactam Sod (Zosyn 2.25 Gm Iv Premix) 2.25 gm in 50 mls @ 100 mls/hr IVPB Q8 [facility] Last Admin: 05/16/17 06:03 Dose: 100 mls/hr Azithromycin 500 mg/ Sodium (Chloride) 250 mls @ 250 mls/hr IVPB Q24H [facility] Last Admin: 05/15/17 16:30 Dose: 250 mls/hr Metoprolol Succinate (Toprol Xl) 100 mg PO DAILY [facility] Last Admin: 05/16/17 09:16 Dose: 100 mg Oxycodone/Acetaminophen (Percocet 5/325 Mg Tab) 1 tab PO Q8 PRN PRN Reason: Pain, moderate (4-7) Stop: 05/17/17 06:01 Last Admin: 05/15/17 15:23 Dose: 1 tab Oxycodone/Acetaminophen (Percocet 5/325 Mg Tab) 1 tab PO Q4H PRN PRN Reason: Pain, severe (8-10) Stop: 05/16/17 22:43 Last Admin: 05/16/17 08:38 Dose: 1 tab Sertraline HCl (Zoloft) 100 mg PO DAILY [facility] Last Admin: 05/15/17 09:57 Dose: Not Given Sodium Polystyrene Sulfonate (Kayexalate Susp) 15 gm PO ONCE PRN PRN Reason: K LEVEL ABOVE 5.5 - Labs Labs: 05/15/17 10:37 05/15/17 10:37 - Constitutional Appears: No Acute Distress, Chronically Ill - Head Exam Head Exam: ATRAUMATIC, NORMAL INSPECTION - Eye Exam Eye Exam: EOMI, Normal appearance - Neck Exam Neck Exam: Normal Inspection. absent: Tenderness - Respiratory Exam Respiratory Exam: Clear to Ausculation Bilateral, NORMAL BREATHING PATTERN - Cardiovascular Exam Cardiovascular Exam: REGULAR RHYTHM, +S1 - GI/Abdominal Exam GI & Abdominal Exam: Soft. absent: Tenderness - Extremities Exam Extremities Exam: Normal Inspection. absent: Tenderness - Neurological Exam Neurological Exam: Alert, CN II-XII Intact - Skin Skin Exam: Dry, Warm Assessment and Plan (1) Failed kidney transplant Status: Acute (2) CHF (congestive heart failure) Status: Acute (3) End stage renal disease Status: Acute (4) HTN (hypertension) Status: Acute (5) Closed fracture of distal end of left fibula and tibia Status: Chronic (6) Bacteremia due to Gram-positive bacteria Status: Acute - Assessment and Plan (Free Text) Plan: Continue IV ABs as per medicine dialysis MWF - same UF goal possible new cast left LE
--- NOTE | 2017-05-16 11:37 | CP.PCM.PN ---
Subjective - Date & Time of Evaluation Date of Evaluation: 05/16/17 Time of Evaluation: 11:34 - Subjective Subjective: fever bacreamia mutlipbe fx upper and lower ext sob hi teriponine Objective - Vital Signs/Intake and Output Vital Signs (last 24 hours): Temp Pulse Resp BP Pulse Ox 98 F 78 20 137/70 99 05/16/17 00:00 05/16/17 00:00 05/16/17 00:00 05/16/17 00:00 05/16/17 00:00 Intake and Output: 05/16/17 05/16/17 06:59 18:59 Intake Total 320 Balance 320 - Medications Medications: Current Medications Acetaminophen (Tylenol 325mg Tab) 650 mg PO Q6 PRN PRN Reason: Fever >100.4 F Albuterol/Ipratropium (Duoneb 3 Mg/0.5 Mg (3 Ml) Ud) 3 ml INH RTID [facility] Last Admin: 05/16/17 09:12 Dose: 3 ml Calcium/Vitamin D (Oyster Shell Calcium/Vitamin D 500 Mg-200 Iu) 1 tab PO DAILY [facility] Last Admin: 05/16/17 09:16 Dose: 1 tab Clonidine HCl (Catapres) 0.1 mg PO HS [facility] Last Admin: 05/15/17 22:01 Dose: 0.1 mg Docusate Sodium (Colace) 100 mg PO BID PRN PRN Reason: Constipation Last Admin: 05/16/17 09:16 Dose: 100 mg Epoetin Santo (Procrit) 10,000 unit IV TTS [facility] Last Admin: 05/15/17 13:24 Dose: 10,000 unit Heparin Sodium (Porcine) (Heparin) 5,000 units SC Q8 [facility] Last Admin: 05/16/17 06:01 Dose: 5,000 units Piperacillin Sod/Tazobactam Sod (Zosyn 2.25 Gm Iv Premix) 2.25 gm in 50 mls @ 100 mls/hr IVPB Q8 [facility] Last Admin: 05/16/17 06:03 Dose: 100 mls/hr Azithromycin 500 mg/ Sodium (Chloride) 250 mls @ 250 mls/hr IVPB Q24H [facility] Last Admin: 05/15/17 16:30 Dose: 250 mls/hr Metoprolol Succinate (Toprol Xl) 100 mg PO DAILY [facility] Last Admin: 05/16/17 09:16 Dose: 100 mg Oxycodone/Acetaminophen (Percocet 5/325 Mg Tab) 1 tab PO Q8 PRN PRN Reason: Pain, moderate (4-7) Stop: 05/17/17 06:01 Last Admin: 05/15/17 15:23 Dose: 1 tab Oxycodone/Acetaminophen (Percocet 5/325 Mg Tab) 1 tab PO Q4H PRN PRN Reason: Pain, severe (8-10) Stop: 05/16/17 22:43 Last Admin: 05/16/17 08:38 Dose: 1 tab Sertraline HCl (Zoloft) 100 mg PO DAILY [facility] Last Admin: 05/15/17 09:57 Dose: Not Given Sodium Polystyrene Sulfonate (Kayexalate Susp) 15 gm PO ONCE PRN PRN Reason: K LEVEL ABOVE 5.5 - Labs Labs: 05/15/17 10:37 05/15/17 10:37 - Constitutional Appears: Non-toxic, In Acute Distress - Head Exam Head Exam: ATRAUMATIC - Eye Exam Eye Exam: Normal appearance - ENT Exam ENT Exam: Mucous Membranes Moist - Neck Exam Neck Exam: Full ROM - Respiratory Exam Respiratory Exam: Decreased Breath Sounds - Cardiovascular Exam Cardiovascular Exam: REGULAR RHYTHM - GI/Abdominal Exam GI & Abdominal Exam: Normal Bowel Sounds - Rectal Exam Rectal Exam: NORMAL INSPECTION - Exam Exam: NORMAL INSPECTION - Back Exam Back Exam: NORMAL INSPECTION - Neurological Exam Neurological Exam: Awake, Oriented x3 Additional comments: has casts on upper and lower ext - Psychiatric Exam Psychiatric exam: Normal Affect - Skin Skin Exam: Normal Color Assessment and Plan - Assessment and Plan (Free Text) Assessment: bacteamia ESRF CHF MULTIPE FXS Plan: PER ORDERS
--- NOTE | 2017-05-16 13:49 | RAD ---
PROCEDURE: Left Ankle Radiographs. HISTORY: s/p cast application COMPARISON: Left ankle radiographs 05/14/2017. FINDINGS: BONES: Diffuse osteopenia suggests osteoporosis. Cast obscures fine bony detail more so than usual because of osteopenia. Fractures at the distal fibular and tibial diaphyses are again identified an intermediate stage of healing with limited callus formation again evident. No significant interval change is appreciated. JOINTS: Degenerative sclerosis of the tibiotalar joint articular cortices is again appreciated mildly. Ankle mortise maintained. Talar dome intact SOFT TISSUES: Normal. OTHER FINDINGS: None. IMPRESSION: Distal tibial and fibular fractures are again seen abdomen intermediate stage of healing with no interval fracture appreciated. No dislocation. Diffuse osteopenia suggests osteoporosis with overlying cast obscuring fine bony and soft-tissue detail.
--- NOTE | 2017-05-16 13:51 | RAD ---
PROCEDURE: Radiographs of the Right Forearm HISTORY: repeat, radius non union COMPARISON: Right forearm radiographs 05/14/2017. TECHNIQUE: Frontal and lateral views obtained. FINDINGS: BONES: Mid to distal diaphyseal fractures of the right radius and ulna are again identified with callus formation again seen at the ulnar fracture site but not identified at the radial fracture site. Mild impaction is again seen the radial fracture site. No definitive dislocation at the wrist or elbow. Diffuse osteopenia suggests osteoporosis with gas obscuring fine bony and soft-tissue detail. JOINT SPACES: Degenerative changes seen at the right wrist and elbow joint moderately. OTHER FINDINGS: None. IMPRESSION: Fractures are identified intermediate stage of healing both the diaphyses of the radius and ulna although healing is more advanced at the ulna than at the radius fracture site. Please see discussion above.
--- NOTE | 2017-05-16 13:59 | CP.PCM.PN ---
Subjective - Date & Time of Evaluation Date of Evaluation: 05/16/17 Time of Evaluation: 13:56 - Subjective Subjective: Patient denies pain. No new complaints. Objective - Vital Signs/Intake and Output Vital Signs (last 24 hours): Temp Pulse Resp BP Pulse Ox 98 F 78 20 137/70 99 05/16/17 00:00 05/16/17 00:00 05/16/17 00:00 05/16/17 00:00 05/16/17 00:00 Intake and Output: 05/16/17 05/16/17 06:59 18:59 Intake Total 320 Balance 320 - Medications Medications: Current Medications Acetaminophen (Tylenol 325mg Tab) 650 mg PO Q6 PRN PRN Reason: Fever >100.4 F Albuterol/Ipratropium (Duoneb 3 Mg/0.5 Mg (3 Ml) Ud) 3 ml INH RTID [facility] Last Admin: 05/16/17 09:12 Dose: 3 ml Calcium/Vitamin D (Oyster Shell Calcium/Vitamin D 500 Mg-200 Iu) 1 tab PO DAILY [facility] Last Admin: 05/16/17 09:16 Dose: 1 tab Clonidine HCl (Catapres) 0.1 mg PO HS [facility] Last Admin: 05/15/17 22:01 Dose: 0.1 mg Docusate Sodium (Colace) 100 mg PO BID PRN PRN Reason: Constipation Last Admin: 05/16/17 09:16 Dose: 100 mg Epoetin Santo (Procrit) 10,000 unit IV TTS [facility] Last Admin: 05/15/17 13:24 Dose: 10,000 unit Heparin Sodium (Porcine) (Heparin) 5,000 units SC Q8 [facility] Last Admin: 05/16/17 06:01 Dose: 5,000 units Piperacillin Sod/Tazobactam Sod (Zosyn 2.25 Gm Iv Premix) 2.25 gm in 50 mls @ 100 mls/hr IVPB Q8 [facility] Last Admin: 05/16/17 06:03 Dose: 100 mls/hr Azithromycin 500 mg/ Sodium (Chloride) 250 mls @ 250 mls/hr IVPB Q24H [facility] Last Admin: 05/15/17 16:30 Dose: 250 mls/hr Metoprolol Succinate (Toprol Xl) 100 mg PO DAILY [facility] Last Admin: 05/16/17 09:16 Dose: 100 mg Oxycodone/Acetaminophen (Percocet 5/325 Mg Tab) 1 tab PO Q8 PRN PRN Reason: Pain, moderate (4-7) Stop: 05/17/17 06:01 Last Admin: 05/15/17 15:23 Dose: 1 tab Oxycodone/Acetaminophen (Percocet 5/325 Mg Tab) 1 tab PO Q4H PRN PRN Reason: Pain, severe (8-10) Stop: 05/16/17 22:43 Last Admin: 05/16/17 08:38 Dose: 1 tab Sertraline HCl (Zoloft) 100 mg PO DAILY [facility] Last Admin: 05/15/17 09:57 Dose: Not Given Sodium Polystyrene Sulfonate (Kayexalate Susp) 15 gm PO ONCE PRN PRN Reason: K LEVEL ABOVE 5.5 - Labs Labs: 05/15/17 10:37 05/15/17 10:37 - Extremities Exam Additional comments: LLE: Splint removed, skin intact, +DP/PT pulses, calves soft NT neg homans short leg cast applied, NVID pre and post casting RUE:patient verbally consented to closed reduction. Advised patient will attempt conservative mgmt and reduce radius as well as possible, if fails she may need ORIF in future, but with infection +blood cx surgery contraindicated closed reduction performed, sugar tong splint applied, NVID pre and post reduction and splinting. Patient tolerated well. 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 Pineda, agrees withh above Status: Chronic (2) Closed fracture of shaft of right radius and ulna Status: Chronic (3) Closed fracture of distal end of left fibula and tibia Assessment & Plan: Some noted interim healing short leg cast applied as some callus already NWB VTE proph d/w Dr. Pineda, agrees with above f/u 1-2 weeks after discharge, call for appointment Status: Chronic Procedures Attestation:: I certify that I have explained the specified Operation(s) or Procedure(s), risks, benefits and reasonable alternatives to the Patient and/or other person responsible. The opportunity was given to ask questions and all questions answered - Orthopedic Fracture Reduction Fracture #1 Consent Obtained: verbal consent Time Out Performed: Yes Side: right Fracture Reduction Location: radius Analgesia: none Technique: direct manipulation Post Reduction X-rays Demonstrate: acceptable reduction Post-Reduction Neuro Exam: intact Post-Reduction Vascular Exam: intact Splint Applied: Yes Patient Tolerated Procedure: well - Orthopedic Splinting/Casting Injury #1 Side: right Upper Extremity Injury Location: forearm Upper Extremity Immobilizer: sugar tong splint Injury #2 Side: left Lower Extremity Injury Location: ankle Additional comments: short leg cast
[2017-05-16] MEDS: Azithromycin 500 MG in Sodium Chloride 0.9% 250 ML IVPB SCH (16:17)
--- NOTE | 2017-05-16 19:01 | CP.PCM.CON ---
History of Present Illness - History of Present Illness History of Present Illness: 66 year old female was brought to the ED via EMS with complaints of chest pain , fever, sweating, and full body aches beginning earlier today while completing hemodialysis. Patient is also complaining of large mass to left breast that has been followed by PMD. Patient was seen in [facility] on 04/24/2017 for pain to legs and arms and was diagnoses with pathological fractures to bilateral lower extremities and right upper extremities. Patient was seen in an ED on 04/25/2017 with similar complaints of total body pain. Patient is currently in a rehabilitation center for lower extremity and right upper extremity. Patient reports she has had mammograms regarding the breast mass with no answers. Patient denies injury, trauma, weakness, numbness, shortness of breath, or other complaints a this time. ID COINSULTED FOR + BLOOD CULTURES PMH: ESRD FAILED RENAL TRANSPLANT SEVERE SECONDARY HYPERPARATHYROIDISM HTN COPD CARDIOMYOPATHY PSH: RENAL TRANSPLANT AV FISTULA REPAIR OF FRACTURES- Johnny Luna Review of Systems - Review of Systems All systems: reviewed and no additional remarkable complaints except - Constitutional Constitutional: As Per HPI - EENT Eyes: absent: As Per HPI, Blind Spots, Blurred Vision, Change in Vision, Decreased Night Vision, Diplopia, Discharge, Dry Eye, Exophthalmos, Floaters, Irritation, Itchy Eyes, Loss of Peripheral Vision, Pain, Photophobia, Requires Corrective Lenses, Sees Flashes, Spots in Vision, Tunnel Vision, Other Visual Disturbances, Loss of Vision, Other Ears: absent: As Per HPI, Decreased Hearing, Ear Discharge, Ear Pain, Tinnitus, Abnormal Hearing, Disequilibrium, Dizziness, Other Nose/Mouth/Throat: absent: As Per HPI, Epistaxis, Nasal Congestion, Nasal Discharge, Nasal Obstruction, Nasal Trauma, Nose Pain, Post Nasal Drip, Sinus Pain, Sinus Pressure, Bleeding Gums, Change in Voice, Dental Pain, Dry Mouth, Dysphagia, Halitosis, Hoarsness, Lip Swelling, Mouth Lesions, Mouth Pain, Odynophagia, Sore Throat, Throat Swelling, Tongue Swelling, Facial Pain, Neck Pain, Neck Mass, Other - Breasts Breasts: absent: As Per HPI, Change in Shape, Mass, Pain, Nipple Discharge, Nipple Inversion, Skin Changes, Swelling, Other - Cardiovascular Cardiovascular: absent: As Per HPI, Acrocyanosis, Chest Pain, Chest Pain at Rest , Chest Pain with Activity, Claudication, Diaphoresis, Dyspnea, Dyspnea on Exertion, Edema, Irregular Heart Rhythm, Pain Radiating to Arm/Neck/Jaw, Leg Edema, Leg Ulcers, Lightheadedness, Orthopnea, Palpitations, Paroxysmal Nocturnal Dyspnea, Pedal Edema, Radiating Pain, Rapid Heart Rate, Slow Heart Rate, Syncope, Other - Respiratory Respiratory: absent: As Per HPI, Cough, Dyspnea, Hemoptysis, Dyspnea on Exertion , Wheezing, Snoring, Stridor, Pain on Inspiration, Chest Congestion, Excessive Mucous Production, Change in Mucous Color, Pain with Coughing, Other - Gastrointestinal Gastrointestinal: absent: As Per HPI, Abdominal Pain, Belching, Bloating, Change in Bowel Habits, Change in Stool Character, Coffee Ground Emesis, Constipation, Cramping, Diarrhea, Dyspepsia, Dysphagia, Early Satiety, Excessive Flatus, Fecal Incontinence, Heartburn, Hematemesis, Hematochezia, Loose Stools, Melena, Nausea, Odynophagia, Temesmus, Vomiting, Other - Genitourinary Genitourinary: As Per HPI - Reproductive: Female Reproductive:Female: absent: As Per HPI, Amenorrhea, Amenorrhea/ Control, Currently Menstual, Cycle <21 Days, Cycle >35 Days, Cycle Variable, Menses 1-7 Days, Menses >/= 8 Days, Menses Variable, Cycle > 4 Weeks Between, No Menses for 6 Months, Heavy Menses, Light Menses, Normal Menses, Spotting Between Cycles , S/P Hysterectomy, Menopausal, Post Menopausal, Premenarche, Abnormal Vaginal Bleeding, Dysmenorrhea, Dyspareunia, Genital Lesions, Genital Pruritis, Pelvic Pain, Prolapse Symptoms, Sexual Dysfunction, Vaginal Discharge, Vaginal Dryness , Vaginal Odor, Vaginal Pruritis, Other - Menstruation Menstruation: absent: As Per HPI, Amenorrhea, Amenorrhea/ Control, Currently Menstual, Cycle <21 Days, Cycle >35 Days, Cycle Variable, Menses 1-7 Days, Menses >/= 8 Days, Menses Variable, Cycle > 4 Weeks Between, No Menses for 6 Months, Heavy Menses, Light Menses, Normal Menses, Spotting Between Cycles , S/P Hysterectomy, Menopausal, Post Menopausal, Premenarche, Abnormal Vaginal Bleeding, Dysmenorrhea, Other - Musculoskeletal Musculoskeletal: As Per HPI - Integumentary Integumentary: absent: As Per HPI, Acne, Alopecia, Bleeding Lesions, Change in Hair, Change in Nails, Change in Pigmentation, Changing Lesions, Dry Skin, Erythema, Furuncle, Hirsutism, Lesions, New Lesions, Non-Healing Lesions, Photosensitivity, Pruritus, Rash, Skin Pain, Skin Ulcer, Sores, Striae, Swelling , Unusual Bruising, Wounds, Jaundice, Other - Neurological Neurological: absent: As Per HPI, Abnormal Gait, Abnormal Hearing, Abnormal Movements, Abnormal Speech, Behavioral Changes, Burning Sensations, Confusion, Convulsions, Disequilibrium, Dizziness, Numbness, Focal Weakness, Frequent Falls , Headaches, Lack of Coordination, Loss of Vision, Memory Loss, Paresthesias, Radicular Pain, Restless Legs, Sensory Deficit, Syncope, Tingling, Tremor, Vertigo, Weakness, Other Visual Disturbances, Other - Psychiatric Psychiatric: absent: As Per HPI, Abnormal Sleep Pattern, Anhedonia, Anxiety, Auditory Hallucinations, Behavioral Changes, Change in Appetite, Change in Libido, Confusion, Depression, Difficulty Concentrating, Hallucinations, Homicidal Ideation, Hopelessness, Irritability, Memory Loss, Mood Swings, Panic Attacks, Paranoia, Suicidal Ideation, Visual Hallucinations, Tactile Hallucinations, Other - Endocrine Endocrine: absent: As Per HPI, Change in Body Appearance, Change in Libido, Cold Intolorance, Deepening of Voice, Excessive Sweating, Fatigue, Flushing, Heat Intolorance, Increase in Ring/Shoe/Hat Size, Palpitations, Polydipsia, Polyphagia, Polyuria, Other - Hematologic/Lymphatic Hematologic: absent: As Per HPI, Easy Bleeding, Easy Bruising, Lymphadenopathy, Other Past Patient History - Infectious Disease Hx of Infectious Diseases: None - Past Medical History & Family History Past Medical History?: Yes - Past Social History Smoking Status: Never Smoked Chewing Tobacco Use: No Cigar Use: No Alcohol: None Drugs: Denies 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 - CARDIAC Hx Cardiac Disorders: Yes Hx Congestive Heart Failure: Yes Hx Hypertension: Yes - PULMONARY Hx Respiratory Disorders: No - NEUROLOGICAL HX Cerebrovascular Accident: Yes (TIA) - HEENT Hx HEENT Problems: No - RENAL Hx Renal Failure: Yes (ESRD, CKD) - ENDOCRINE/METABOLIC Hx Endocrine Disorders: No - HEMATOLOGICAL/ONCOLOGICAL Hx Blood Disorders: Yes Hx Blood Transfusions: Yes Hx Blood Transfusion Reaction: Yes Hx Shingles: Yes (right arm) - INTEGUMENTARY Hx Dermatological Problems: No - MUSCULOSKELETAL/RHEUMATOLOGICAL Hx Arthritis: Yes (OA) - GASTROINTESTINAL Hx Diverticulitis: Yes Hx Pancreatitis: Yes - GENITOURINARY/GYNECOLOGICAL Hx Genitourinary Disorders: No Other/Comment: DIALYSIS PATIENT - PSYCHIATRIC Hx Anxiety: Yes Hx Substance Use: No - SURGICAL HISTORY Hx Cholecystectomy: Yes - ANESTHESIA Hx Anesthesia: Yes Hx Anesthesia Reactions: No Hx Malignant Hyperthermia: No Meds Allergies/Adverse Reactions: Allergies Allergy/AdvReac Type Severity Reaction Status Date / Time aspirin Allergy NAUSEA Verified 05/13/17 17:14 lactose Allergy NAUSEA Verified 05/13/17 17:14 - Medications Medications: Current Medications Acetaminophen (Tylenol 325mg Tab) 650 mg PO Q6 PRN PRN Reason: Fever >100.4 F Albuterol/Ipratropium (Duoneb 3 Mg/0.5 Mg (3 Ml) Ud) 3 ml INH RTID [facility] Last Admin: 05/16/17 14:04 Dose: 3 ml Calcium/Vitamin D (Oyster Shell Calcium/Vitamin D 500 Mg-200 Iu) 1 tab PO DAILY [facility] Last Admin: 05/16/17 09:16 Dose: 1 tab Clonidine HCl (Catapres) 0.1 mg PO HS [facility] Last Admin: 05/15/17 22:01 Dose: 0.1 mg Docusate Sodium (Colace) 100 mg PO BID PRN PRN Reason: Constipation Last Admin: 05/16/17 09:16 Dose: 100 mg Epoetin Santo (Procrit) 10,000 unit IV TTS [facility] Last Admin: 05/15/17 13:24 Dose: 10,000 unit Heparin Sodium (Porcine) (Heparin) 5,000 units SC Q8 [facility] Last Admin: 05/16/17 14:12 Dose: 5,000 units Piperacillin Sod/Tazobactam Sod (Zosyn 2.25 Gm Iv Premix) 2.25 gm in 50 mls @ 100 mls/hr IVPB Q8 [facility] Last Admin: 05/16/17 14:11 Dose: 100 mls/hr Azithromycin 500 mg/ Sodium (Chloride) 250 mls @ 250 mls/hr IVPB Q24H [facility] Last Admin: 05/16/17 16:17 Dose: 250 mls/hr Metoprolol Succinate (Toprol Xl) 100 mg PO DAILY [facility] Last Admin: 05/16/17 09:16 Dose: 100 mg Oxycodone/Acetaminophen (Percocet 5/325 Mg Tab) 1 tab PO Q8 PRN PRN Reason: Pain, moderate (4-7) Stop: 05/17/17 06:01 Last Admin: 05/15/17 15:23 Dose: 1 tab Oxycodone/Acetaminophen (Percocet 5/325 Mg Tab) 1 tab PO Q4H PRN PRN Reason: Pain, severe (8-10) Stop: 05/16/17 22:43 Last Admin: 05/16/17 08:38 Dose: 1 tab Sertraline HCl (Zoloft) 100 mg PO DAILY [facility] Last Admin: 05/16/17 14:17 Dose: 100 mg Sodium Polystyrene Sulfonate (Kayexalate Susp) 15 gm PO ONCE PRN PRN Reason: K LEVEL ABOVE 5.5 Physical Exam - Constitutional Appears: Non-toxic, Chronically Ill - Head Exam Head Exam: NORMOCEPHALIC - Eye Exam Eye Exam: PERRL - ENT Exam ENT Exam: Mucous Membranes Dry, Normal External Ear Exam - Neck Exam Neck exam: Negative for: Lymphadenopathy - Respiratory Exam Respiratory Exam: Decreased Breath Sounds, Prolonged Expiratory Phase, Rhonchi, Wheezes - Cardiovascular Exam Cardiovascular Exam: REGULAR RHYTHM - GI/Abdominal Exam GI & Abdominal Exam: Diminished Bowel Sounds, Soft. absent: Tenderness - Rectal Exam Rectal Exam: Deferred - Exam Exam: NORMAL INSPECTION - Extremities Exam Extremities exam: Negative for: pedal edema - Back Exam Back exam: absent: CVA tenderness (L), CVA tenderness (R) - Neurological Exam Neurological exam: Alert, CN II-XII Intact, Oriented x3, Reflexes Normal - Psychiatric Exam Psychiatric exam: Depressed - Skin Skin Exam: Dry, Intact Results - Vital Signs Recent Vital Signs: Last Vital Signs Temp 97.9 F 05/16/17 17:01 Pulse 78 05/16/17 17:01 Resp 20 05/16/17 17:01 BP 140/58 L 05/16/17 17:01 Pulse Ox 94 L 05/16/17 17:01 - Labs Result Diagrams: 05/15/17 10:37 05/15/17 10:37 Assessment & Plan (1) Bacteremia due to Gram-positive bacteria Status: Acute (2) Failed kidney transplant Status: Acute (3) Fever Status: Acute (4) Pneumonia Status: Acute (5) 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
[2017-05-17] MEDS: Piperacill/Tazo 2.25gm in Dex 2.25 GM/50 ML BAG IVPB SCH ×3 (05:32→22:02)
[2017-05-17] MEDS: Oxycodone/Acetaminophen 5/325 mg Tab PO PRN (05:41)
[2017-05-17] MEDS: Albuterol-Ipratrop 3 mg / 0.5 (3 ml) UD INH SCH ×3 (07:41→19:20)
[2017-05-17] MEDS: Epoetin Alfa 10,000 unit/ml Dialysis IV SCH (09:59)
--- NOTE | 2017-05-17 10:25 | CP.PCM.PN ---
Subjective - Date & Time of Evaluation Date of Evaluation: 05/17/17 Time of Evaluation: 10:25 - Subjective Subjective: feels beter no fever this morning having dialysis now Objective - Vital Signs/Intake and Output Vital Signs (last 24 hours): Temp Pulse Resp BP Pulse Ox 98.6 F 79 24 119/55 L 99 05/17/17 08:55 05/17/17 08:55 05/17/17 08:55 05/17/17 09:55 05/17/17 08:55 Intake and Output: 05/17/17 05/17/17 06:59 18:59 Intake Total 170 Balance 170 - Medications Medications: Current Medications Acetaminophen (Tylenol 325mg Tab) 650 mg PO Q6 PRN PRN Reason: Fever >100.4 F Albuterol/Ipratropium (Duoneb 3 Mg/0.5 Mg (3 Ml) Ud) 3 ml INH RTID [facility] Last Admin: 05/17/17 07:41 Dose: 3 ml Calcium/Vitamin D (Oyster Shell Calcium/Vitamin D 500 Mg-200 Iu) 1 tab PO DAILY [facility] Last Admin: 05/16/17 09:16 Dose: 1 tab Clonidine HCl (Catapres) 0.1 mg PO HS [facility] Last Admin: 05/16/17 21:07 Dose: 0.1 mg Docusate Sodium (Colace) 100 mg PO BID PRN PRN Reason: Constipation Last Admin: 05/16/17 09:16 Dose: 100 mg Epoetin Santo (Procrit) 10,000 unit IV TTS [facility] Last Admin: 05/17/17 09:59 Dose: 10,000 unit Heparin Sodium (Porcine) (Heparin) 5,000 units SC Q8 [facility] Last Admin: 05/17/17 06:13 Dose: 5,000 units Piperacillin Sod/Tazobactam Sod (Zosyn 2.25 Gm Iv Premix) 2.25 gm in 50 mls @ 100 mls/hr IVPB Q8 [facility] Last Admin: 05/17/17 05:32 Dose: 100 mls/hr Azithromycin 500 mg/ Sodium (Chloride) 250 mls @ 250 mls/hr IVPB Q24H [facility] Last Admin: 05/16/17 16:17 Dose: 250 mls/hr Metoprolol Succinate (Toprol Xl) 100 mg PO DAILY [facility] Last Admin: 05/16/17 09:16 Dose: 100 mg Sertraline HCl (Zoloft) 100 mg PO DAILY [facility] Last Admin: 05/16/17 14:17 Dose: 100 mg Sodium Polystyrene Sulfonate (Kayexalate Susp) 15 gm PO ONCE PRN PRN Reason: K LEVEL ABOVE 5.5 - Labs Labs: 05/15/17 10:37 05/15/17 10:37 - Constitutional Appears: Non-toxic - Head Exam Head Exam: NORMAL INSPECTION - Eye Exam Eye Exam: Normal appearance Pupil Exam: NORMAL ACCOMODATION - ENT Exam ENT Exam: Mucous Membranes Moist - Neck Exam Neck Exam: Full ROM - Respiratory Exam Respiratory Exam: Decreased Breath Sounds, Rales, NORMAL BREATHING PATTERN - Cardiovascular Exam Cardiovascular Exam: REGULAR RHYTHM - Rectal Exam Rectal Exam: NORMAL INSPECTION - Extremities Exam Extremities Exam: Normal Inspection Additional comments: has cast on uper and lower ext - Back Exam Back Exam: NORMAL INSPECTION - Neurological Exam Neurological Exam: Alert, Oriented x3 - Psychiatric Exam Psychiatric exam: Normal Mood - Skin Skin Exam: Pallor Assessment and Plan - Assessment and Plan (Free Text) Assessment: bilateral pnumonia chf bactreamia esrf aneamia Plan: cont as per orders
--- NOTE | 2017-05-17 10:30 | CP.PCM.PN ---
Subjective - Date & Time of Evaluation Date of Evaluation: 05/17/17 Time of Evaluation: 10:28 - Subjective Subjective: seen in dialysis had cast in left leg yesterday dressing changed over right arm no SOB afebrile UF 2.5 L ROS- as per HPI, other than that 10 point ROS negative Objective - Vital Signs/Intake and Output Vital Signs (last 24 hours): Temp Pulse Resp BP Pulse Ox 98.6 F 79 24 119/55 L 99 05/17/17 08:55 05/17/17 08:55 05/17/17 08:55 05/17/17 09:55 05/17/17 08:55 Intake and Output: 05/17/17 05/17/17 06:59 18:59 Intake Total 170 Balance 170 - Medications Medications: Current Medications Acetaminophen (Tylenol 325mg Tab) 650 mg PO Q6 PRN PRN Reason: Fever >100.4 F Albuterol/Ipratropium (Duoneb 3 Mg/0.5 Mg (3 Ml) Ud) 3 ml INH RTID [facility] Last Admin: 05/17/17 07:41 Dose: 3 ml Calcium/Vitamin D (Oyster Shell Calcium/Vitamin D 500 Mg-200 Iu) 1 tab PO DAILY [facility] Last Admin: 05/16/17 09:16 Dose: 1 tab Clonidine HCl (Catapres) 0.1 mg PO HS [facility] Last Admin: 05/16/17 21:07 Dose: 0.1 mg Docusate Sodium (Colace) 100 mg PO BID PRN PRN Reason: Constipation Last Admin: 05/16/17 09:16 Dose: 100 mg Epoetin Santo (Procrit) 10,000 unit IV TTS [facility] Last Admin: 05/17/17 09:59 Dose: 10,000 unit Heparin Sodium (Porcine) (Heparin) 5,000 units SC Q8 [facility] Last Admin: 05/17/17 06:13 Dose: 5,000 units Piperacillin Sod/Tazobactam Sod (Zosyn 2.25 Gm Iv Premix) 2.25 gm in 50 mls @ 100 mls/hr IVPB Q8 [facility] Last Admin: 05/17/17 05:32 Dose: 100 mls/hr Azithromycin 500 mg/ Sodium (Chloride) 250 mls @ 250 mls/hr IVPB Q24H [facility] Last Admin: 11/24/17 16:17 Dose: 250 mls/hr Metoprolol Succinate (Toprol Xl) 100 mg PO DAILY [facility] Last Admin: 05/16/17 09:16 Dose: 100 mg Sertraline HCl (Zoloft) 100 mg PO DAILY [facility] Last Admin: 05/16/17 14:17 Dose: 100 mg Sodium Polystyrene Sulfonate (Kayexalate Susp) 15 gm PO ONCE PRN PRN Reason: K LEVEL ABOVE 5.5 - Labs Labs: 05/15/17 10:37 05/15/17 10:37 - Constitutional Appears: Well, Non-toxic - Head Exam Head Exam: ATRAUMATIC, NORMOCEPHALIC - Eye Exam Eye Exam: EOMI, Normal appearance - Neck Exam Neck Exam: Full ROM - Respiratory Exam Respiratory Exam: Clear to Ausculation Bilateral. absent: Rhonchi, Wheezes - Cardiovascular Exam Cardiovascular Exam: REGULAR RHYTHM, +S1, +S2 - GI/Abdominal Exam GI & Abdominal Exam: Soft. 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
[2017-05-17] MEDS: Metoprolol Succinate 100 mg XL Tab PO SCH (14:04)
[2017-05-17] MEDS: Calcium-Vit D 500 mg-200 Units Tab UD PO SCH (14:05)
[2017-05-17] MEDS: Azithromycin 500 MG in Sodium Chloride 0.9% 250 ML IVPB SCH (16:04)
[2017-05-18] MEDS: Piperacill/Tazo 2.25gm in Dex 2.25 GM/50 ML BAG IVPB SCH ×3 (05:09→21:10)
[2017-05-18] MEDS: Albuterol-Ipratrop 3 mg / 0.5 (3 ml) UD INH SCH ×3 (07:25→19:45)
[2017-05-18] MEDS: Oxycodone/Acetaminophen 5/325 mg Tab PO PRN ×3 (08:37→21:51)
[2017-05-18] MEDS: Metoprolol Succinate 100 mg XL Tab PO SCH (11:10)
[2017-05-18] MEDS: Calcium-Vit D 500 mg-200 Units Tab UD PO SCH (11:11)
--- NOTE | 2017-05-18 12:54 | CP.PCM.PN ---
Subjective - Date & Time of Evaluation Date of Evaluation: 05/18/17 Time of Evaluation: 12:51 - Subjective Subjective: pt feels weeke Objective - Vital Signs/Intake and Output Vital Signs (last 24 hours): Temp Pulse Resp BP Pulse Ox 98.4 F 73 20 158/75 H 97 05/18/17 07:45 05/18/17 07:45 05/18/17 07:45 05/18/17 07:45 05/18/17 07:45 Intake and Output: 05/18/17 05/18/17 06:59 18:59 Intake Total 170 Balance 170 - Medications Medications: Current Medications Acetaminophen (Tylenol 325mg Tab) 650 mg PO Q6 PRN PRN Reason: Fever >100.4 F Albuterol/Ipratropium (Duoneb 3 Mg/0.5 Mg (3 Ml) Ud) 3 ml INH RTID [facility] Last Admin: 05/18/17 07:25 Dose: 3 ml Calcium/Vitamin D (Oyster Shell Calcium/Vitamin D 500 Mg-200 Iu) 1 tab PO DAILY [facility] Last Admin: 05/18/17 11:11 Dose: 1 tab Clonidine HCl (Catapres) 0.1 mg PO HS [facility] Last Admin: 05/17/17 22:03 Dose: 0.1 mg Docusate Sodium (Colace) 100 mg PO BID PRN PRN Reason: Constipation Last Admin: 05/16/17 09:16 Dose: 100 mg Epoetin Santo (Procrit) 10,000 unit IV TTS [facility] Last Admin: 05/17/17 09:59 Dose: 10,000 unit Heparin Sodium (Porcine) (Heparin) 5,000 units SC Q8 [facility] Last Admin: 05/18/17 05:10 Dose: 5,000 units Piperacillin Sod/Tazobactam Sod (Zosyn 2.25 Gm Iv Premix) 2.25 gm in 50 mls @ 100 mls/hr IVPB Q8 [facility] Last Admin: 05/18/17 05:09 Dose: 100 mls/hr Azithromycin 500 mg/ Sodium (Chloride) 250 mls @ 250 mls/hr IVPB Q24H [facility] Last Admin: 05/17/17 16:04 Dose: 250 mls/hr Metoprolol Succinate (Toprol Xl) 100 mg PO DAILY [facility] Last Admin: 05/18/17 11:10 Dose: 100 mg Oxycodone/Acetaminophen (Percocet 5/325 Mg Tab) 1 tab PO Q8 PRN PRN Reason: Pain, severe (8-10) Stop: 05/20/17 15:58 Last Admin: 05/18/17 08:37 Dose: 1 tab Sertraline HCl (Zoloft) 100 mg PO DAILY [facility] Last Admin: 05/17/17 14:13 Dose: 100 mg Sodium Polystyrene Sulfonate (Kayexalate Susp) 15 gm PO ONCE PRN PRN Reason: K LEVEL ABOVE 5.5 - Labs Labs: 05/15/17 10:37 05/15/17 10:37 - Constitutional Appears: Non-toxic - Head Exam Head Exam: NORMAL INSPECTION - ENT Exam ENT Exam: Mucous Membranes Moist - Neck Exam Neck Exam: Normal Inspection - Respiratory Exam Respiratory Exam: Decreased Breath Sounds - Cardiovascular Exam Cardiovascular Exam: REGULAR RHYTHM - GI/Abdominal Exam GI & Abdominal Exam: Normal Bowel Sounds - Rectal Exam Rectal Exam: NORMAL INSPECTION - Extremities Exam Extremities Exam: Normal Inspection - Back Exam Back Exam: NORMAL INSPECTION - Neurological Exam Neurological Exam: Oriented x3 - Psychiatric Exam Psychiatric exam: Normal Affect - Skin Skin Exam: Normal Color Assessment and Plan - Assessment and Plan (Free Text) Assessment: bactreamia mutiple fx ESRF CHF Plan: cont as per orders
[2017-05-18] MEDS: Azithromycin 500 MG in Sodium Chloride 0.9% 250 ML IVPB SCH (16:15)
--- NOTE | 2017-05-18 17:28 | CP.PCM.PN ---
Subjective - Date & Time of Evaluation Date of Evaluation: 05/18/17 Time of Evaluation: 09:00 - Subjective Subjective: afeb alert nad IV rx reordered Objective - Vital Signs/Intake and Output Vital Signs (last 24 hours): Temp Pulse Resp BP Pulse Ox 97.5 F L 74 20 122/75 95 05/18/17 15:00 05/18/17 15:00 05/18/17 15:00 05/18/17 15:00 05/18/17 15:00 Intake and Output: 05/18/17 05/18/17 06:59 18:59 Intake Total 170 450 Balance 170 450 - Medications Medications: Current Medications Acetaminophen (Tylenol 325mg Tab) 650 mg PO Q6 PRN PRN Reason: Fever >100.4 F Albuterol/Ipratropium (Duoneb 3 Mg/0.5 Mg (3 Ml) Ud) 3 ml INH RTID [facility] Last Admin: 05/18/17 13:25 Dose: 3 ml Calcium/Vitamin D (Oyster Shell Calcium/Vitamin D 500 Mg-200 Iu) 1 tab PO DAILY [facility] Last Admin: 05/18/17 11:11 Dose: 1 tab Clonidine HCl (Catapres) 0.1 mg PO HS [facility] Last Admin: 05/17/17 22:03 Dose: 0.1 mg Docusate Sodium (Colace) 100 mg PO BID PRN PRN Reason: Constipation Last Admin: 05/16/17 09:16 Dose: 100 mg Epoetin Santo (Procrit) 10,000 unit IV TTS [facility] Last Admin: 05/17/17 09:59 Dose: 10,000 unit Heparin Sodium (Porcine) (Heparin) 5,000 units SC Q8 [facility] Last Admin: 05/18/17 14:26 Dose: 5,000 units Piperacillin Sod/Tazobactam Sod (Zosyn 2.25 Gm Iv Premix) 2.25 gm in 50 mls @ 100 mls/hr IVPB Q8 [facility] Last Admin: 05/18/17 14:26 Dose: 100 mls/hr Azithromycin 500 mg/ Sodium (Chloride) 250 mls @ 250 mls/hr IVPB Q24H [facility] Last Admin: 05/18/17 16:15 Dose: 250 mls/hr Metoprolol Succinate (Toprol Xl) 100 mg PO DAILY [facility] Last Admin: 05/18/17 11:10 Dose: 100 mg Oxycodone/Acetaminophen (Percocet 5/325 Mg Tab) 1 tab PO Q8 PRN PRN Reason: Pain, severe (8-10) Stop: 05/20/17 15:58 Last Admin: 05/18/17 16:35 Dose: 1 tab Sertraline HCl (Zoloft) 100 mg PO DAILY [facility] Last Admin: 05/18/17 14:26 Dose: 100 mg Sodium Polystyrene Sulfonate (Kayexalate Susp) 15 gm PO ONCE PRN PRN Reason: K LEVEL ABOVE 5.5 - Labs Labs: 05/15/17 10:37 05/15/17 10:37 - Constitutional Appears: Non-toxic, Chronically Ill - Head Exam Head Exam: NORMOCEPHALIC - Eye Exam Eye Exam: PERRL - ENT Exam ENT Exam: Mucous Membranes Dry - Neck Exam Neck Exam: absent: Lymphadenopathy - Respiratory Exam Respiratory Exam: Decreased Breath Sounds, Rhonchi - Cardiovascular Exam Cardiovascular Exam: REGULAR RHYTHM - GI/Abdominal Exam GI & Abdominal Exam: Distended, Soft - Rectal Exam Rectal Exam: Deferred - Exam Exam: NORMAL INSPECTION - Extremities Exam Extremities Exam: absent: Pedal Edema - Back Exam Back Exam: absent: CVA tenderness (L), CVA tenderness (R) - Neurological Exam Neurological Exam: Alert, Awake Assessment and Plan (1) Bacteremia due to Gram-positive bacteria Status: Acute (2) Failed kidney transplant Status: Acute (3) Fever Status: Acute (4) Pneumonia Status: Acute (5) 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
[2017-05-19] MEDS: Piperacill/Tazo 2.25gm in Dex 2.25 GM/50 ML BAG IVPB SCH ×3 (05:06→21:53)
[2017-05-19] MEDS: Albuterol-Ipratrop 3 mg / 0.5 (3 ml) UD INH SCH (07:47)
[2017-05-19] MEDS: Metoprolol Succinate 100 mg XL Tab PO SCH (10:21)
[2017-05-19] MEDS: Calcium-Vit D 500 mg-200 Units Tab UD PO SCH (10:21)
--- NOTE | 2017-05-19 11:01 | CP.PCM.PN ---
Subjective - Date & Time of Evaluation Date of Evaluation: 05/19/17 Time of Evaluation: 10:58 - Subjective Subjective: Patient complaining of some swelling to her right fingers. Patient is not using sling currently, and advised patient she needs to use sling and needs to elevate hand above elbow at all times. Encouraged ROM fingers as well. No complaints about ankle. Review of Systems - Review of Systems All systems: reviewed and no additional remarkable complaints except - Cardiovascular Cardiovascular: UNREMARKABLE - Respiratory Respiratory: UNREMARKABLE - Gastrointestinal Gastrointestinal: UNREMARKABLE - Musculoskeletal Musculoskeletal: As Par HPI - Integumentary Integumentary: As Per HPI - Neurological Neurological: UNREMARKABLE - Hematologic/Lymphatic Hematologic: UNREMARKABLE Objective - Vital Signs/Intake and Output Vital Signs (last 24 hours): Temp Pulse Resp BP Pulse Ox 97.5 F L 63 20 144/61 97 05/19/17 09:27 05/19/17 09:27 05/19/17 09:27 05/19/17 09:27 05/19/17 09:27 Intake and Output: 05/19/17 05/19/17 06:59 18:59 Intake Total 290 Balance 290 - Medications Medications: Current Medications Acetaminophen (Tylenol 325mg Tab) 650 mg PO Q6 PRN PRN Reason: Fever >100.4 F Calcium/Vitamin D (Oyster Shell Calcium/Vitamin D 500 Mg-200 Iu) 1 tab PO DAILY [facility] Last Admin: 05/19/17 10:21 Dose: 1 tab Clonidine HCl (Catapres) 0.1 mg PO HS [facility] Last Admin: 05/18/17 21:09 Dose: 0.1 mg Docusate Sodium (Colace) 100 mg PO BID PRN PRN Reason: Constipation Last Admin: 05/16/17 09:16 Dose: 100 mg Epoetin Santo (Procrit) 10,000 unit IV TTS [facility] Last Admin: 05/17/17 09:59 Dose: 10,000 unit Heparin Sodium (Porcine) (Heparin) 5,000 units SC Q8 [facility] Last Admin: 05/19/17 05:05 Dose: 5,000 units Piperacillin Sod/Tazobactam Sod (Zosyn 2.25 Gm Iv Premix) 2.25 gm in 50 mls @ 100 mls/hr IVPB Q8 [facility] Last Admin: 05/19/17 05:06 Dose: 100 mls/hr Azithromycin 500 mg/ Sodium (Chloride) 250 mls @ 250 mls/hr IVPB Q24H [facility] Last Admin: 05/18/17 16:15 Dose: 250 mls/hr Metoprolol Succinate (Toprol Xl) 100 mg PO DAILY [facility] Last Admin: 05/19/17 10:21 Dose: 100 mg Oxycodone/Acetaminophen (Percocet 5/325 Mg Tab) 1 tab PO Q4H PRN PRN Reason: Pain, moderate (4-7) Stop: 05/21/17 21:44 Last Admin: 05/18/17 21:51 Dose: 1 tab Sertraline HCl (Zoloft) 100 mg PO DAILY [facility] Last Admin: 05/19/17 10:24 Dose: 100 mg Sodium Polystyrene Sulfonate (Kayexalate Susp) 15 gm PO ONCE PRN PRN Reason: K LEVEL ABOVE 5.5 - Labs Labs: 05/15/17 10:37 05/15/17 10:37 - Constitutional Appears: Well, No Acute Distress - Head Exam Head Exam: ATRAUMATIC - Respiratory Exam Respiratory Exam: NORMAL BREATHING PATTERN - Cardiovascular Exam Additional comments: +cap refill right fingers, left toes - Extremities Exam Additional comments: Right hand: splint intact, well padded, had in dependant position. Hand elevated. full ROM fingers encouraged. LLE: cast intact. 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 Pineda, agrees with above Status: Chronic (2) Closed fracture of shaft of right radius and ulna Status: Chronic (3) Closed fracture of distal end of left fibula and tibia Assessment & Plan: see above Status: Chronic Radiology Interpretation - Radiology Interpretation #2 Interpretation: Patient Name / ID : BRYANT DARDEN / [id number] Exam Date : 05/16/2017 12:57:09 ( Approved ) Study Comment : Sex / Age : F / 66Y Creator : Pascual Ocampo MD Dictator : Pascual Ocampo MD Audiometrist : Tractor Operator Helper : Pascual Ocampo MD Approver2 : Report Date : 05/16/2017 13:44:07 My Comment : PROCEDURE: Left Ankle Radiographs. HISTORY: s/p cast application COMPARISON: Left ankle radiographs 05/14/2017. FINDINGS: BONES: Diffuse osteopenia suggests osteoporosis. Cast obscures fine bony detail more so than usual because of osteopenia. Fractures at the distal fibular and tibial diaphyses are again identified an intermediate stage of healing with limited callus formation again evident. No significant interval change is appreciated. JOINTS: Degenerative sclerosis of the tibiotalar joint articular cortices is again appreciated mildly. Ankle mortise maintained. Talar dome intact SOFT TISSUES: Normal. OTHER FINDINGS: None. IMPRESSION: Distal tibial and fibular fractures are again seen abdomen intermediate stage of healing with no interval fracture appreciated. No dislocation. Diffuse osteopenia suggests osteoporosis with overlying cast obscuring fine bony and soft-tissue detail. Patient Name / ID : BRYANT DARDEN / [id number] Exam Date : 05/16/2017 12:57:09 ( Approved ) Study Comment : Sex / Age : F / 66Y Creator : Pascual Ocampo MD Dictator : Pascual Ocampo MD Audiometrist : Tractor Operator Helper : Pascual Ocampo MD Approver2 : Report Date : 05/16/2017 13:46:23 My Comment : PROCEDURE: Radiographs of the Right Forearm HISTORY: repeat, radius non union COMPARISON: Right forearm radiographs 05/14/2017. TECHNIQUE: Frontal and lateral views obtained. FINDINGS: BONES: Mid to distal diaphyseal fractures of the right radius and ulna are again identified with callus formation again seen at the ulnar fracture site but not identified at the radial fracture site. Mild impaction is again seen the radial fracture site. No definitive dislocation at the wrist or elbow. Diffuse osteopenia suggests osteoporosis with gas obscuring fine bony and soft-tissue detail. JOINT SPACES: Degenerative changes seen at the right wrist and elbow joint moderately. OTHER FINDINGS: None. IMPRESSION: Fractures are identified intermediate stage of healing both the diaphyses of the radius and ulna although healing is more advanced at the ulna than at the radius fracture site. Please see discussion above.
--- NOTE | 2017-05-19 11:28 | CP.PCM.PN ---
Subjective - Date & Time of Evaluation Date of Evaluation: 05/19/17 Time of Evaluation: 07:00 - Subjective Subjective: repeat blood c/s neg iv rx renewed needs min 14 days await echo Objective - Vital Signs/Intake and Output Vital Signs (last 24 hours): Temp Pulse Resp BP Pulse Ox 97.5 F L 63 20 144/61 97 05/19/17 09:27 05/19/17 09:27 05/19/17 09:27 05/19/17 09:27 05/19/17 09:27 Intake and Output: 05/19/17 05/19/17 06:59 18:59 Intake Total 290 Balance 290 - Medications Medications: Current Medications Acetaminophen (Tylenol 325mg Tab) 650 mg PO Q6 PRN PRN Reason: Fever >100.4 F Calcium/Vitamin D (Oyster Shell Calcium/Vitamin D 500 Mg-200 Iu) 1 tab PO DAILY [facility] Last Admin: 05/19/17 10:21 Dose: 1 tab Clonidine HCl (Catapres) 0.1 mg PO HS [facility] Last Admin: 05/18/17 21:09 Dose: 0.1 mg Docusate Sodium (Colace) 100 mg PO BID PRN PRN Reason: Constipation Last Admin: 05/16/17 09:16 Dose: 100 mg Epoetin Santo (Procrit) 10,000 unit IV TTS [facility] Last Admin: 05/17/17 09:59 Dose: 10,000 unit Heparin Sodium (Porcine) (Heparin) 5,000 units SC Q8 [facility] Last Admin: 05/19/17 05:05 Dose: 5,000 units Piperacillin Sod/Tazobactam Sod (Zosyn 2.25 Gm Iv Premix) 2.25 gm in 50 mls @ 100 mls/hr IVPB Q8 [facility] Last Admin: 05/19/17 05:06 Dose: 100 mls/hr Azithromycin 500 mg/ Sodium (Chloride) 250 mls @ 250 mls/hr IVPB Q24H [facility] Last Admin: 05/18/17 16:15 Dose: 250 mls/hr Metoprolol Succinate (Toprol Xl) 100 mg PO DAILY [facility] Last Admin: 05/19/17 10:21 Dose: 100 mg Oxycodone/Acetaminophen (Percocet 5/325 Mg Tab) 1 tab PO Q4H PRN PRN Reason: Pain, moderate (4-7) Stop: 05/21/17 21:44 Last Admin: 05/18/17 21:51 Dose: 1 tab Sertraline HCl (Zoloft) 100 mg PO DAILY [facility] Last Admin: 05/19/17 10:24 Dose: 100 mg Sodium Polystyrene Sulfonate (Kayexalate Susp) 15 gm PO ONCE PRN PRN Reason: K LEVEL ABOVE 5.5 - Labs Labs: 05/15/17 10:37 05/15/17 10:37 - Constitutional Appears: Non-toxic, Chronically Ill - Head Exam Head Exam: NORMOCEPHALIC - Eye Exam Eye Exam: PERRL - ENT Exam ENT Exam: Mucous Membranes Dry - Neck Exam Neck Exam: absent: Lymphadenopathy - Respiratory Exam Respiratory Exam: Decreased Breath Sounds - Cardiovascular Exam Cardiovascular Exam: REGULAR RHYTHM - GI/Abdominal Exam GI & Abdominal Exam: Distended Assessment and Plan (1) Bacteremia due to Gram-positive bacteria Status: Acute (2) Failed kidney transplant Status: Acute (3) Fever Status: Acute (4) Pneumonia Status: Acute (5) 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
--- NOTE | 2017-05-19 11:32 | CP.PCM.PN ---
Subjective - Date & Time of Evaluation Date of Evaluation: 05/19/17 Time of Evaluation: 11:29 - Subjective Subjective: No new complaints Casts in place- pain better tolerated stable dialysis 05/17 on IV ABs for bacteremia Objective - Vital Signs/Intake and Output Vital Signs (last 24 hours): Temp Pulse Resp BP Pulse Ox 97.5 F L 63 20 144/61 97 05/19/17 09:27 05/19/17 09:27 05/19/17 09:27 05/19/17 09:27 05/19/17 09:27 Intake and Output: 05/19/17 05/19/17 06:59 18:59 Intake Total 290 Balance 290 - Medications Medications: Current Medications Acetaminophen (Tylenol 325mg Tab) 650 mg PO Q6 PRN PRN Reason: Fever >100.4 F Calcium/Vitamin D (Oyster Shell Calcium/Vitamin D 500 Mg-200 Iu) 1 tab PO DAILY [facility] Last Admin: 05/19/17 10:21 Dose: 1 tab Clonidine HCl (Catapres) 0.1 mg PO HS [facility] Last Admin: 05/18/17 21:09 Dose: 0.1 mg Docusate Sodium (Colace) 100 mg PO BID PRN PRN Reason: Constipation Last Admin: 05/16/17 09:16 Dose: 100 mg Epoetin Santo (Procrit) 10,000 unit IV TTS [facility] Last Admin: 05/17/17 09:59 Dose: 10,000 unit Heparin Sodium (Porcine) (Heparin) 5,000 units SC Q8 [facility] Last Admin: 05/19/17 05:05 Dose: 5,000 units Piperacillin Sod/Tazobactam Sod (Zosyn 2.25 Gm Iv Premix) 2.25 gm in 50 mls @ 100 mls/hr IVPB Q8 [facility] Last Admin: 05/19/17 05:06 Dose: 100 mls/hr Azithromycin 500 mg/ Sodium (Chloride) 250 mls @ 250 mls/hr IVPB Q24H [facility] Last Admin: 05/18/17 16:15 Dose: 250 mls/hr Metoprolol Succinate (Toprol Xl) 100 mg PO DAILY [facility] Last Admin: 05/19/17 10:21 Dose: 100 mg Oxycodone/Acetaminophen (Percocet 5/325 Mg Tab) 1 tab PO Q4H PRN PRN Reason: Pain, moderate (4-7) Stop: 05/21/17 21:44 Last Admin: 05/18/17 21:51 Dose: 1 tab Sertraline HCl (Zoloft) 100 mg PO DAILY [facility] Last Admin: 05/19/17 10:24 Dose: 100 mg Sodium Polystyrene Sulfonate (Kayexalate Susp) 15 gm PO ONCE PRN PRN Reason: K LEVEL ABOVE 5.5 - Labs Labs: 05/15/17 10:37 05/15/17 10:37 - Constitutional Appears: No Acute Distress, Chronically Ill - Head Exam Head Exam: ATRAUMATIC, NORMAL INSPECTION - Eye Exam Eye Exam: EOMI, Normal appearance - Neck Exam Neck Exam: Normal Inspection. absent: Tenderness - Respiratory Exam Respiratory Exam: Clear to Ausculation Bilateral, NORMAL BREATHING PATTERN - Cardiovascular Exam Cardiovascular Exam: REGULAR RHYTHM, +S1 - GI/Abdominal Exam GI & Abdominal Exam: Soft. absent: Tenderness - Extremities Exam Extremities Exam: Calf Tenderness, Tenderness - Neurological Exam Neurological Exam: Alert, CN II-XII Intact - Skin Skin Exam: Dry, Warm Assessment and Plan (1) Failed kidney transplant Status: Acute (2) CHF (congestive heart failure) Status: Acute (3) End stage renal disease Status: Acute (4) HTN (hypertension) Status: Acute (5) Closed fracture of distal end of left fibula and tibia Status: Chronic (6) Bacteremia due to Gram-positive bacteria Status: Acute - Assessment and Plan (Free Text) Plan: continue dialysis TTS IV ABs
[2017-05-19] MEDS: Azithromycin 500 MG in Sodium Chloride 0.9% 250 ML IVPB SCH (16:00)
[2017-05-19] MEDS: Oxycodone/Acetaminophen 5/325 mg Tab PO PRN ×2 (16:35→22:37)
--- NOTE | 2017-05-19 16:37 | CP.PCM.PN ---
Subjective - Date & Time of Evaluation Date of Evaluation: 05/19/17 Time of Evaluation: 16:35 - Subjective Subjective: less pain afebrile Objective - Vital Signs/Intake and Output Vital Signs (last 24 hours): Temp Pulse Resp BP Pulse Ox 97.5 F L 63 20 144/61 97 05/19/17 09:27 05/19/17 09:27 05/19/17 09:27 05/19/17 09:27 05/19/17 09:27 Intake and Output: 05/19/17 05/19/17 06:59 18:59 Intake Total 290 450 Balance 290 450 - Medications Medications: Current Medications Acetaminophen (Tylenol 325mg Tab) 650 mg PO Q6 PRN PRN Reason: Fever >100.4 F Calcium/Vitamin D (Oyster Shell Calcium/Vitamin D 500 Mg-200 Iu) 1 tab PO DAILY [facility] Last Admin: 05/19/17 10:21 Dose: 1 tab Clonidine HCl (Catapres) 0.1 mg PO HS [facility] Last Admin: 05/18/17 21:09 Dose: 0.1 mg Docusate Sodium (Colace) 100 mg PO BID PRN PRN Reason: Constipation Last Admin: 05/16/17 09:16 Dose: 100 mg Epoetin Santo (Procrit) 10,000 unit IV TTS [facility] Last Admin: 05/17/17 09:59 Dose: 10,000 unit Heparin Sodium (Porcine) (Heparin) 5,000 units SC Q8 [facility] Last Admin: 05/19/17 13:24 Dose: 5,000 units Piperacillin Sod/Tazobactam Sod (Zosyn 2.25 Gm Iv Premix) 2.25 gm in 50 mls @ 100 mls/hr IVPB Q8 [facility] Last Admin: 05/19/17 13:24 Dose: 100 mls/hr Azithromycin 500 mg/ Sodium (Chloride) 250 mls @ 250 mls/hr IVPB Q24H [facility] Last Admin: 05/18/17 16:15 Dose: 250 mls/hr Metoprolol Succinate (Toprol Xl) 100 mg PO DAILY [facility] Last Admin: 05/19/17 10:21 Dose: 100 mg Oxycodone/Acetaminophen (Percocet 5/325 Mg Tab) 1 tab PO Q4H PRN PRN Reason: Pain, moderate (4-7) Stop: 05/21/17 21:44 Last Admin: 05/18/17 21:51 Dose: 1 tab Sertraline HCl (Zoloft) 100 mg PO DAILY [facility] Last Admin: 05/19/17 10:24 Dose: 100 mg Sodium Polystyrene Sulfonate (Kayexalate Susp) 15 gm PO ONCE PRN PRN Reason: K LEVEL ABOVE 5.5 - Labs Labs: 05/15/17 10:37 05/15/17 10:37 - Constitutional Appears: Non-toxic - Head Exam Head Exam: NORMAL INSPECTION - Eye Exam Eye Exam: Normal appearance Pupil Exam: NORMAL ACCOMODATION - ENT Exam ENT Exam: Mucous Membranes Moist - Neck Exam Neck Exam: Full ROM - Respiratory Exam Respiratory Exam: Decreased Breath Sounds, NORMAL BREATHING PATTERN - Cardiovascular Exam Cardiovascular Exam: REGULAR RHYTHM - Rectal Exam Rectal Exam: NORMAL INSPECTION - Extremities Exam Additional comments: cast on - Back Exam Back Exam: NORMAL INSPECTION - Neurological Exam Neurological Exam: Normal Gait - Skin Skin Exam: Normal Color Assessment and Plan - Assessment and Plan (Free Text) Assessment: bactreamia pnumonia multiple fxs Plan: cont same
--- NOTE | 2017-05-19 19:17 | CARD ---
APPROVED REPORT EXAM: Two-dimensional and M-mode echocardiogram with Doppler and color Doppler. Other Information Quality : GoodRhythm : INDICATION Dizziness and Vertigo Congestive Heart Failure FEVER,DIALYSIS RISK FACTORS Hypertension 2D DIMENSIONS LVOT Diameter1.7 (1.8-2.4cm) M-Mode DIMENSIONS RVDd3.46 (2.1-3.2cm)Left Atrium (MM)4.70 (2.5-4.0cm) IVSd1.15 (0.7-1.1cm)Aortic Root2.64 (2.2-3.7cm) LVDd5.36 (4.0-5.6cm)Aortic Cusp Exc.1.40 (1.5-2.0cm) PWd1.15 (0.7-1.1cm)FS (%) 29 % LVDs3.79 (2.0-3.8cm)LVEF (%)56 (>50%) Aortic Valve AoV Peak Liqyxwdp654.6cm/sAoV VTI51.6cmAO Peak GR.22mmHg LVOT Peak Exwkixrg022.3cm/sLVOT VTI37.62cmAO Mean GR.9mmHg MARTIN (VMAX)1.57fb6MCU (VTI)1.70cm2 Mitral Valve MV E Btyaiunw877.7cm/sMV A Jhulojsg46.9cm/sE/A ratio1.3 TDI E/Lateral E'0.0E/Medial E'0.0 Tricuspid Valve TR Peak Qwdlzsxp150so/sTR Peak Gr.04lnKpGXFE64slSk LEFT VENTRICLE The left ventricle is normal size. There is mild concentric left ventricular hypertrophy. The Ejection Fraction is 55-60%. There is normal LV segmental wall motion. The left ventricular diastolic function is normal. RIGHT VENTRICLE The right ventricle is normal size. The right ventricular systolic function is normal. ATRIA The left atrium is moderately dilated. The right atrium size is normal. The interatrial septum is intact with no evidence for an atrial septal defect. AORTIC VALVE The aortic valve is mildly sclerotic. No aortic regurgitation is present. peak/mean gradinet of 22/9 mm of hg. mild as. MITRAL VALVE The mitral valve is mildly thickened. Mitral regurgitation is trace to mild. TRICUSPID VALVE The tricuspid valve is normal in structure. There is mild tricuspid regurgitation. Right ventricular systolic pressure is estimated at 48 mmHg. There is moderate pulmonary hypertension. PULMONIC VALVE The pulmonary valve is normal in structure. GREAT VESSELS The aortic root is normal size. The aortic root displays mild sclerocalcific changes of the aortic root. The IVC is normal in size and collapses >50% with inspiration. PERICARDIAL EFFUSION There is no pericardial effusion. <Conclusion> The left ventricle is normal size. There is mild concentric left ventricular hypertrophy. The Ejection Fraction is 55-60%. The left ventricular diastolic function is normal. The left atrium is moderately dilated. peak/mean gradinet of 22/9 mm of hg. mild as. Mitral regurgitation is trace to mild. There is mild tricuspid regurgitation. Right ventricular systolic pressure is estimated at 48 mmHg. There is moderate pulmonary hypertension. The aortic root is normal size. The aortic root displays mild sclerocalcific changes of the aortic root.
[2017-05-20 03:22] VITALS: O2SAT 100
[2017-05-20] MEDS: Oxycodone/Acetaminophen 5/325 mg Tab PO PRN ×3 (04:26→18:59)
[2017-05-20] MEDS: Piperacill/Tazo 2.25gm in Dex 2.25 GM/50 ML BAG IVPB SCH ×2 (05:34→13:46)
--- NOTE | 2017-05-20 09:26 | CP.PCM.PN ---
Subjective - Date & Time of Evaluation Date of Evaluation: 05/20/17 Time of Evaluation: 09:23 - Subjective Subjective: feels beter no fever pain controled with med Objective - Vital Signs/Intake and Output Vital Signs (last 24 hours): Temp Pulse Resp BP Pulse Ox 98.4 F 70 20 144/66 100 05/20/17 08:33 05/20/17 08:33 05/20/17 08:33 05/20/17 08:33 05/20/17 08:33 - Medications Medications: Current Medications Acetaminophen (Tylenol 325mg Tab) 650 mg PO Q6 PRN PRN Reason: Fever >100.4 F Calcium/Vitamin D (Oyster Shell Calcium/Vitamin D 500 Mg-200 Iu) 1 tab PO DAILY [facility] Last Admin: 05/19/17 10:21 Dose: 1 tab Clonidine HCl (Catapres) 0.1 mg PO HS [facility] Last Admin: 05/19/17 21:52 Dose: 0.1 mg Docusate Sodium (Colace) 100 mg PO BID PRN PRN Reason: Constipation Last Admin: 05/16/17 09:16 Dose: 100 mg Epoetin Santo (Procrit) 10,000 unit IV TTS [facility] Last Admin: 05/17/17 09:59 Dose: 10,000 unit Heparin Sodium (Porcine) (Heparin) 5,000 units SC Q8 [facility] Last Admin: 05/20/17 05:34 Dose: 5,000 units Piperacillin Sod/Tazobactam Sod (Zosyn 2.25 Gm Iv Premix) 2.25 gm in 50 mls @ 100 mls/hr IVPB Q8 [facility] Last Admin: 05/20/17 05:34 Dose: 100 mls/hr Azithromycin 500 mg/ Sodium (Chloride) 250 mls @ 250 mls/hr IVPB Q24H [facility] Last Admin: 05/19/17 16:00 Dose: 250 mls/hr Metoprolol Succinate (Toprol Xl) 100 mg PO DAILY [facility] Last Admin: 05/19/17 10:21 Dose: 100 mg Oxycodone/Acetaminophen (Percocet 5/325 Mg Tab) 1 tab PO Q4H PRN PRN Reason: Pain, moderate (4-7) Stop: 05/21/17 21:44 Last Admin: 05/20/17 04:26 Dose: 1 tab Sertraline HCl (Zoloft) 100 mg PO DAILY [facility] Last Admin: 05/19/17 10:24 Dose: 100 mg Sodium Polystyrene Sulfonate (Kayexalate Susp) 15 gm PO ONCE PRN PRN Reason: K LEVEL ABOVE 5.5 - Labs Labs: 05/15/17 10:37 05/15/17 10:37 - Constitutional Appears: Non-toxic - Head Exam Head Exam: NORMAL INSPECTION - Eye Exam Eye Exam: Normal appearance Pupil Exam: NORMAL ACCOMODATION - ENT Exam ENT Exam: Mucous Membranes Moist - Neck Exam Neck Exam: Full ROM - Respiratory Exam Respiratory Exam: Clear to Ausculation Bilateral - GI/Abdominal Exam GI & Abdominal Exam: Normal Bowel Sounds - Rectal Exam Rectal Exam: NORMAL INSPECTION - Extremities Exam Additional comments: casts uper and lower ext - Back Exam Back Exam: NORMAL INSPECTION - Neurological Exam Neurological Exam: Normal Gait - Psychiatric Exam Psychiatric exam: Normal Affect - Skin Skin Exam: Normal Color Assessment and Plan - Assessment and Plan (Free Text) Assessment: ac pnumonia improved ac bacreamia cont iv antibiotics possily in [facility] fx Plan: levi
[2017-05-20] MEDS: Calcium-Vit D 500 mg-200 Units Tab UD PO SCH (10:19)
[2017-05-20] MEDS: Metoprolol Succinate 100 mg XL Tab PO SCH (10:41)
--- NOTE | 2017-05-20 10:51 | CP.PCM.PN ---
Subjective - Date & Time of Evaluation Date of Evaluation: 05/20/17 Time of Evaluation: 10:49 - Subjective Subjective: seen and examined pain improved. possible dc to rehab today no fever chills sob chest pain nausea vomiting Objective - Vital Signs/Intake and Output Vital Signs (last 24 hours): Temp Pulse Resp BP Pulse Ox 98.4 F 70 20 144/66 100 05/20/17 08:33 05/20/17 08:33 05/20/17 08:33 05/20/17 08:33 05/20/17 08:33 - Medications Medications: Current Medications Acetaminophen (Tylenol 325mg Tab) 650 mg PO Q6 PRN PRN Reason: Fever >100.4 F Calcium/Vitamin D (Oyster Shell Calcium/Vitamin D 500 Mg-200 Iu) 1 tab PO DAILY [facility] Last Admin: 05/20/17 10:19 Dose: 1 tab Clonidine HCl (Catapres) 0.1 mg PO HS [facility] Last Admin: 05/19/17 21:52 Dose: 0.1 mg Docusate Sodium (Colace) 100 mg PO BID PRN PRN Reason: Constipation Last Admin: 05/16/17 09:16 Dose: 100 mg Epoetin Santo (Procrit) 10,000 unit IV TTS [facility] Last Admin: 05/17/17 09:59 Dose: 10,000 unit Heparin Sodium (Porcine) (Heparin) 5,000 units SC Q8 [facility] Last Admin: 05/20/17 05:34 Dose: 5,000 units Piperacillin Sod/Tazobactam Sod (Zosyn 2.25 Gm Iv Premix) 2.25 gm in 50 mls @ 100 mls/hr IVPB Q8 [facility] Last Admin: 05/20/17 05:34 Dose: 100 mls/hr Azithromycin 500 mg/ Sodium (Chloride) 250 mls @ 250 mls/hr IVPB Q24H [facility] Last Admin: 05/19/17 16:00 Dose: 250 mls/hr Metoprolol Succinate (Toprol Xl) 100 mg PO DAILY [facility] Last Admin: 05/20/17 10:41 Dose: Not Given Oxycodone/Acetaminophen (Percocet 5/325 Mg Tab) 1 tab PO Q4H PRN PRN Reason: Pain, moderate (4-7) Stop: 05/21/17 21:44 Last Admin: 05/20/17 10:17 Dose: 1 tab Sertraline HCl (Zoloft) 100 mg PO DAILY [facility] Last Admin: 05/20/17 10:19 Dose: 100 mg Sodium Polystyrene Sulfonate (Kayexalate Susp) 15 gm PO ONCE PRN PRN Reason: K LEVEL ABOVE 5.5 - Labs Labs: 05/15/17 10:37 05/15/17 10:37 - Constitutional Appears: No Acute Distress, Chronically Ill - Head Exam Head Exam: NORMAL INSPECTION - Eye Exam Eye Exam: Normal appearance - ENT Exam ENT Exam: Mucous Membranes Moist, Normal Exam - Respiratory Exam Respiratory Exam: Clear to Ausculation Bilateral, NORMAL BREATHING PATTERN - Cardiovascular Exam Cardiovascular Exam: REGULAR RHYTHM, RRR - GI/Abdominal Exam GI & Abdominal Exam: Distended, Soft, Normal Bowel Sounds - Extremities Exam Extremities Exam: Normal Inspection (rt leg in cast) - Skin Skin Exam: Intact, Normal Color Assessment and Plan (1) Bacteremia due to Gram-positive bacteria Status: Acute (2) Fever Status: Acute (3) Pneumonia Status: Acute (4) 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 3K bath antibiotics per ID
--- NOTE | 2017-05-20 11:25 | CP.PCM.PN ---
Subjective - Date & Time of Evaluation Date of Evaluation: 05/20/17 Time of Evaluation: 11:25 - Subjective Subjective: Awake, alert, no sob or chest pains, NAD. Objective - Vital Signs/Intake and Output Vital Signs (last 24 hours): Temp Pulse Resp BP Pulse Ox 98.4 F 70 20 144/66 100 05/20/17 08:33 05/20/17 08:33 05/20/17 08:33 05/20/17 08:33 05/20/17 08:33 - Medications Medications: Current Medications Acetaminophen (Tylenol 325mg Tab) 650 mg PO Q6 PRN PRN Reason: Fever >100.4 F Calcium/Vitamin D (Oyster Shell Calcium/Vitamin D 500 Mg-200 Iu) 1 tab PO DAILY [facility] Last Admin: 05/20/17 10:19 Dose: 1 tab Clonidine HCl (Catapres) 0.1 mg PO HS [facility] Last Admin: 05/19/17 21:52 Dose: 0.1 mg Docusate Sodium (Colace) 100 mg PO BID PRN PRN Reason: Constipation Last Admin: 05/16/17 09:16 Dose: 100 mg Epoetin Santo (Procrit) 10,000 unit IV TTS [facility] Last Admin: 05/17/17 09:59 Dose: 10,000 unit Heparin Sodium (Porcine) (Heparin) 5,000 units SC Q8 [facility] Last Admin: 05/20/17 05:34 Dose: 5,000 units Piperacillin Sod/Tazobactam Sod (Zosyn 2.25 Gm Iv Premix) 2.25 gm in 50 mls @ 100 mls/hr IVPB Q8 [facility] Last Admin: 05/20/17 05:34 Dose: 100 mls/hr Azithromycin 500 mg/ Sodium (Chloride) 250 mls @ 250 mls/hr IVPB Q24H [facility] Last Admin: 05/19/17 16:00 Dose: 250 mls/hr Metoprolol Succinate (Toprol Xl) 100 mg PO DAILY [facility] Last Admin: 05/20/17 10:41 Dose: Not Given Oxycodone/Acetaminophen (Percocet 5/325 Mg Tab) 1 tab PO Q4H PRN PRN Reason: Pain, moderate (4-7) Stop: 05/21/17 21:44 Last Admin: 05/20/17 10:17 Dose: 1 tab Sertraline HCl (Zoloft) 100 mg PO DAILY [facility] Last Admin: 05/20/17 10:19 Dose: 100 mg Sodium Polystyrene Sulfonate (Kayexalate Susp) 15 gm PO ONCE PRN PRN Reason: K LEVEL ABOVE 5.5 - Labs Labs: 05/15/17 10:37 05/15/17 10:37 Assessment and Plan - Assessment and Plan (Free Text) Assessment: Patient is seen and examined. Alert and oriented, complaints of pain on the legs and arm. On percocet prn for pain with good effect. Discussed with DR Douglass, plan to discharge to [facility] today after the HD. To be seen by ortho within 1 week after discharge. To cotinue with ancef 2 gm after each dialysis for 6 weeks for bacteremia as per DR Guerra.
--- NOTE | 2017-05-20 12:39 | CP.PCM.PN ---
Subjective - Date & Time of Evaluation Date of Evaluation: 05/20/17 Time of Evaluation: 10:00 - Subjective Subjective: discussed on rounds iv rx in progress for d/c on IV ancef 2 g post hd x 6 weeks Objective - Vital Signs/Intake and Output Vital Signs (last 24 hours): Temp Pulse Resp BP Pulse Ox 98.4 F 70 20 144/66 100 05/20/17 08:33 05/20/17 08:33 05/20/17 08:33 05/20/17 08:33 05/20/17 08:33 - Medications Medications: Current Medications Acetaminophen (Tylenol 325mg Tab) 650 mg PO Q6 PRN PRN Reason: Fever >100.4 F Calcium/Vitamin D (Oyster Shell Calcium/Vitamin D 500 Mg-200 Iu) 1 tab PO DAILY [facility] Last Admin: 05/20/17 10:19 Dose: 1 tab Clonidine HCl (Catapres) 0.1 mg PO HS [facility] Last Admin: 05/19/17 21:52 Dose: 0.1 mg Docusate Sodium (Colace) 100 mg PO BID PRN PRN Reason: Constipation Last Admin: 05/16/17 09:16 Dose: 100 mg Epoetin Santo (Procrit) 10,000 unit IV TTS [facility] Last Admin: 05/17/17 09:59 Dose: 10,000 unit Heparin Sodium (Porcine) (Heparin) 5,000 units SC Q8 [facility] Last Admin: 05/20/17 05:34 Dose: 5,000 units Piperacillin Sod/Tazobactam Sod (Zosyn 2.25 Gm Iv Premix) 2.25 gm in 50 mls @ 100 mls/hr IVPB Q8 [facility] Last Admin: 05/20/17 05:34 Dose: 100 mls/hr Azithromycin 500 mg/ Sodium (Chloride) 250 mls @ 250 mls/hr IVPB Q24H [facility] Last Admin: 05/19/17 16:00 Dose: 250 mls/hr Metoprolol Succinate (Toprol Xl) 100 mg PO DAILY [facility] Last Admin: 05/20/17 10:41 Dose: Not Given Oxycodone/Acetaminophen (Percocet 5/325 Mg Tab) 1 tab PO Q4H PRN PRN Reason: Pain, moderate (4-7) Stop: 05/21/17 21:44 Last Admin: 05/20/17 10:17 Dose: 1 tab Sertraline HCl (Zoloft) 100 mg PO DAILY [facility] Last Admin: 05/20/17 10:19 Dose: 100 mg Sodium Polystyrene Sulfonate (Kayexalate Susp) 15 gm PO ONCE PRN PRN Reason: K LEVEL ABOVE 5.5 - Labs Labs: 05/15/17 10:37 05/15/17 10:37 - Constitutional Appears: Non-toxic, Chronically Ill - Head Exam Head Exam: NORMOCEPHALIC - Eye Exam Eye Exam: PERRL - ENT Exam ENT Exam: Mucous Membranes Dry - Neck Exam Neck Exam: absent: Lymphadenopathy - Respiratory Exam Respiratory Exam: Decreased Breath Sounds - Cardiovascular Exam Cardiovascular Exam: REGULAR RHYTHM - GI/Abdominal Exam GI & Abdominal Exam: Distended, Soft - Rectal Exam Rectal Exam: Deferred Assessment and Plan (1) Bacteremia due to Gram-positive bacteria Status: Acute (2) Failed kidney transplant Status: Acute (3) Fever Status: Acute (4) Pneumonia Status: Acute (5) 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
[2017-05-20 14:14] LABS: HEMATOCRIT 26.2 % (34.0-47.0); MEAN CORPUSCULAR HGB CONC 33.6 g/dL (33.0-37.0); MEAN PLATELET VOLUME 8.3 fL (7.2-11.7); RED CELL DISTRIBUTION WIDTH 17.6 % (11.5-14.5)
[2017-05-20 14:27] LABS: MEAN CELL VOLUME 98.2 fL (81.0-99.0)
[2017-05-20 14:30] LABS: CALCIUM 8.7 mg/dl (8.6-10.4); POTASSIUM 4.3 mmol/L (3.6-5.2)
[2017-05-20 15:14] VITALS: PULSE 68; TEMP 97.1
[2017-05-20 15:18] VITALS: RESP 18
[2017-05-20] MEDS: Epoetin Alfa 10,000 unit/ml Dialysis IV SCH (16:48)
[2017-05-20 17:42] VITALS: BP 157/58
== END 2017-05-20 22:32 | DRG 871 ==
LOC: C.ER 17:05 → C.9E 18:11 → C.5S 22:37 → C.3T 05-15 21:29
PROVIDERS: ADMIT Internal Medicine; ATTEND Internal Medicine
DX: A41.9 Sepsis, unspecified organism (principal); J18.9 Pneumonia, unspecified organism; I13.2 Hypertensive heart and chronic kidney disease with heart failure and with stage 5 chronic kidney disease, or end stage renal disease; T86.12 Kidney transplant failure; N18.6 End stage renal disease; I50.9 Heart failure, unspecified; M80.031 Age-related osteoporosis with current pathological fracture, right forearm; Z99.2 Dependence on renal dialysis

== ENCOUNTER 2017-08-02 13:31 | Inpatient (IN) | payer MEDICARE ==
[2017-08-02 13:32] VITALS: BMI 23.8
--- NOTE | 2017-08-02 14:04 | C.PDOC ---
History Of Present Illness 66-year-old female, PMHx includes ESRD on HD, presents to the emergency department with complaints of bleeding from fistula site. Patient states her left arm was sore, and eroding, due to it being used too much. Patient applied an ointment and band-aid to the area. When the band-aid was removed this morning , the area began bleeding, which took twenty-minutes to control with pressure dressing. She denies any pain at this time. Time Seen by Provider: 08/02/17 13:45 Chief Complaint (Nursing): Medical Clearance History Per: Patient History/Exam Limitations: no limitations Current Symptoms Are (Timing): Better Past Medical History Reviewed: Historical Data, Nursing Documentation, Vital Signs Vital Signs: Last Vital Signs Temp 97.8 F 08/02/17 13:40 Pulse 84 08/02/17 13:40 Resp 20 08/02/17 13:40 BP 127/62 08/02/17 13:40 Pulse Ox 94 L 08/02/17 14:38 - Medical History PMH: Anxiety, Arthritis (OA), CHF, Diverticulitis, Fibromyalgia, Fractures ( Current right leg fx, RUE, LLE), HTN, Osteoporosis, Pancreatitis, End Stage Renal Disease, Chronic Kidney Disease, TIA Surgical History: Cholecystectomy - [facility] (04/28/17) BUNIONECT/SFT/OSTEOTOMY (06/04/13) IMMOBILIZATION OF LEFT LOWER LEG USING SPLINT (04/28/17) IMMOBILIZATION OF RIGHT UPPER EXTREMITY USING SPLINT (04/28/17) OPEN REDUCT-INT FIX TOE (06/04/13) Family History: States: No Known Family Hx - Social History Hx Alcohol Use: No Hx Substance Use: No - Immunization History Hx Tetanus Toxoid Vaccination: No Hx Influenza Vaccination: No Hx Pneumococcal Vaccination: No Review Of Systems Except As Marked, All Systems Reviewed And Found Negative. Constitutional: Negative for: Fever Cardiovascular: Negative for: Chest Pain, Palpitations Respiratory: Negative for: Shortness of Breath Gastrointestinal: Negative for: Nausea, Vomiting Neurological: Negative for: Weakness, Numbness Physical Exam - Physical Exam Appears: Non-toxic, No Acute Distress Skin: Warm, Dry, No Rash Neck: Normal ROM Chest: Symmetrical Cardiovascular: Rhythm Regular, No Murmur Respiratory: Normal Breath Sounds, No Accessory Muscle Use Gastrointestinal/Abdominal: Soft, No Tenderness Extremity: No Deformity, No Swelling, Other (Left upper arm: AV fistula with palpable thrill. 1cm ulceration on the fistula, fresh but no active bleeding at this time.) Neurological/Psych: Oriented x3 ED Course And Treatment O2 Sat by Pulse Oximetry: 94 (RA) Pulse Ox Interpretation: Normal - Physician Consult Information Outcome Of Conversation: Case discussed iwth Dr Muñoz and Dr Douglass. She will remain in the hospital for fistula repair in the morning. Medical Decision Making Medical Decision Making: Plan: * Type and Screen * CMP * CBC * Reassess and Disposition Patients wound was cleaned and dressed in sterile fashion Disposition - Disposition Disposition: HOSPITALIZED Disposition Time: 15:02 Condition: STABLE - Clinical Impression Clinical Impression: Failing arteriovenous fistula - Scribe Statement The provider has reviewed the documentation as recorded by the Scribe (Lisette Pineda) All medical record entries made by the Scribe were at my direction and personally dictated by me. I have reviewed the chart and agree that the record accurately reflects my personal performance of the history, physical exam, medical decision making, and the department course for this patient. I have also personally directed, reviewed, and agree with the discharge instructions and disposition.
--- NOTE | 2017-08-02 15:03 | CP.PCM.HP ---
History of Present Illness - History of Present Illness History of Present Illness: pt transfered from [facility] and admited for bleedinf [place] her dialysis graft in her arm Present on Admission - Present on Admission Any Indicators Present on Admission: Yes Review of Systems - Review of Systems Systems not reviewed;Unavailable: Acuity of Condition - Constitutional Constitutional: Weight Gain - EENT Eyes: As Per HPI Nose/Mouth/Throat: As Per HPI - Breasts Breasts: Swelling - Cardiovascular Cardiovascular: Dyspnea on Exertion - Respiratory Respiratory: Dyspnea on Exertion - Gastrointestinal Gastrointestinal: As Per HPI - Genitourinary Genitourinary: As Per HPI - Reproductive: Female Reproductive:Female: As Per HPI - Menstruation Menstruation: As Per HPI - Musculoskeletal Musculoskeletal: Numbness Additional comments: hx of mutiple fx uper and lower ext - Integumentary Integumentary: Bleeding Lesions - Neurological Neurological: Frequent Falls - Psychiatric Psychiatric: As Per HPI - Endocrine Endocrine: As Per HPI - Hematologic/Lymphatic Hematologic: Easy Bleeding Past Patient History - Infectious Disease Hx of Infectious Diseases: None - Past Medical History & Family History Past Medical History?: Yes - Past Social History Smoking Status: Never Smoked - CARDIAC Hx Congestive Heart Failure: Yes Hx Hypertension: Yes - PULMONARY Hx Respiratory Disorders: No - NEUROLOGICAL Hx Transient Ischemic Attacks (TIA): Yes - HEENT Hx HEENT Problems: No - RENAL Hx Chronic Kidney Disease: Yes - ENDOCRINE/METABOLIC Hx Endocrine Disorders: No - HEMATOLOGICAL/ONCOLOGICAL Hx Blood Disorders: Yes Hx Blood Transfusions: Yes Hx Blood Transfusion Reaction: Yes Hx Shingles: Yes (right arm) - INTEGUMENTARY Hx Dermatological Problems: No - MUSCULOSKELETAL/RHEUMATOLOGICAL Hx Arthritis: Yes (OA) Hx Fractures: Yes (Current right leg fx, RUE, LLE) Hx Osteoporosis: Yes - GASTROINTESTINAL Hx Diverticulitis: Yes Hx Pancreatitis: Yes - GENITOURINARY/GYNECOLOGICAL Hx Genitourinary Disorders: No Other/Comment: DIALYSIS PATIENT - PSYCHIATRIC Hx Anxiety: Yes Hx Substance Use: No - SURGICAL HISTORY Hx Cholecystectomy: Yes - ANESTHESIA Hx Anesthesia: Yes Hx Anesthesia Reactions: No Hx Malignant Hyperthermia: No Meds Allergies/Adverse Reactions: Allergies Allergy/AdvReac Type Severity Reaction Status Date / Time aspirin Allergy NAUSEA Verified 05/13/17 17:14 lactose Allergy NAUSEA Verified 05/13/17 17:14 Physical Exam - Constitutional Appears: Non-toxic - Head Exam Head Exam: ATRAUMATIC - Eye Exam Eye Exam: Normal appearance Pupil Exam: PERRL - ENT Exam ENT Exam: Mucous Membranes Dry - Neck Exam Neck exam: Positive for: Full Rom - Respiratory Exam Respiratory Exam: NORMAL BREATHING PATTERN - Cardiovascular Exam Cardiovascular Exam: REGULAR RHYTHM - GI/Abdominal Exam GI & Abdominal Exam: Normal Bowel Sounds - Rectal Exam Rectal Exam: NORMAL INSPECTION - Extremities Exam Additional comments: l arm dialysis shunt ulcer bleeding - Back Exam Back exam: NORMAL INSPECTION - Neurological Exam Neurological exam: Alert, Oriented x3 - Psychiatric Exam Psychiatric exam: Normal Affect - Skin Skin Exam: Pallor Results - Vital Signs Recent Vital Signs: Last Vital Signs Temp 97.8 F 08/02/17 13:40 Pulse 84 08/02/17 13:40 Resp 20 08/02/17 13:40 BP 127/62 08/02/17 13:40 Pulse Ox 94 L 08/02/17 14:38 Assessment & Plan - Assessment and Plan (Free Text) Assessment: ac bleeding ulcer dialysis shunt l arm esrf sp fx Plan: admit dr holder will see pt - Date & Time Date: 08/02/17 Time: 15:09
[2017-08-02 15:39] LABS: BASO # 0.1 K/uL (0.0-0.2); BASO % 0.8 % (0.0-2.0); EOS # 0.2 K/uL (0.0-0.7); EOS % 3.3 % (0.0-4.0); LYMPH # 1.1 K/uL (1.0-4.3); MEAN CELL VOLUME 101.4 fL (81.0-99.0); MEAN CORPUSCULAR HEMOGLOBIN 33.9 pg (27.0-31.0); MEAN CORPUSCULAR HGB CONC 33.4 g/dL (33.0-37.0); MEAN PLATELET VOLUME 7.6 fL (7.2-11.7); MONO # 1.3 K/uL (0.0-0.8); MONO % 18.4 % (0.0-10.0); NEUT # 4.4 K/uL (1.8-7.0); NEUT % 61.5 % (50.0-75.0); RBC 3.24 Mil/uL (3.80-5.20); RED CELL DISTRIBUTION WIDTH 16.9 % (11.5-14.5); WHITE BLOOD COUNT 7.1 K/uL (4.8-10.8)
[2017-08-02 15:59] LABS: ALB/GLOB RATIO 0.8 (1.0-2.1); ALBUMIN 3.3 g/dL (3.5-5.0); CALCIUM 8.5 mg/dl (8.6-10.4)
--- NOTE | 2017-08-02 18:06 | CP.PCM.CON ---
History of Present Illness - History of Present Illness History of Present Illness: Vascular Surgery Consult for Dr. Muñoz Reason for consult: Bleeding from AVF access site 66 F with PMH that includes ESRD on HD, presents to [facility] with complaints of bleeding from fistula site. Patient states she receives HD on MWF. She reports that if they stick her in certain places it will continue to bleed. Patient says that she has to show dialysis nurse where to get access. Patient was at dialysis yesterday when it began to bleed. She applied ointment and bandage to the area. The area began bleeding when the bandage was removed this morning and took over twenty mins to control. She was then sent to hospital from intermediate. Patient admits to some soreness in the area but has no other complaints. PMH: Anxiety, Arthritis, CHF, Diverticulitis, Fibromyalgia, history of multiple Fractures (Current right leg fx, RUE, LLE), HTN, Osteoporosis, Pancreatitis, ESRD on HD TIA Meds: As per EMR Allergy: ASA, lactose PSH: AVF, Cholecystectomy FH:unknown Social: former smoker, denies Etoh/illicit drug use Review of Systems - Review of Systems All systems: reviewed and no additional remarkable complaints except (as per HPI ) Past Patient History - Infectious Disease Hx of Infectious Diseases: None - Past Medical History & Family History Past Medical History?: Yes - Past Social History Smoking Status: Never Smoked - CARDIAC Hx Congestive Heart Failure: Yes Hx Hypertension: Yes - PULMONARY Hx Respiratory Disorders: No - NEUROLOGICAL Hx Transient Ischemic Attacks (TIA): Yes - HEENT Hx HEENT Problems: No - RENAL Hx Chronic Kidney Disease: Yes - ENDOCRINE/METABOLIC Hx Endocrine Disorders: No - HEMATOLOGICAL/ONCOLOGICAL Hx Blood Disorders: Yes Hx Blood Transfusions: Yes Hx Blood Transfusion Reaction: Yes Hx Shingles: Yes (right arm) - INTEGUMENTARY Hx Dermatological Problems: No - MUSCULOSKELETAL/RHEUMATOLOGICAL Hx Arthritis: Yes (OA) Hx Fractures: Yes (Current right leg fx, RUE, LLE) Hx Osteoporosis: Yes - GASTROINTESTINAL Hx Diverticulitis: Yes Hx Pancreatitis: Yes - GENITOURINARY/GYNECOLOGICAL Hx Genitourinary Disorders: No Other/Comment: DIALYSIS PATIENT - PSYCHIATRIC Hx Anxiety: Yes Hx Substance Use: No - SURGICAL HISTORY Hx Cholecystectomy: Yes - ANESTHESIA Hx Anesthesia: Yes Hx Anesthesia Reactions: No Hx Malignant Hyperthermia: No Meds Allergies/Adverse Reactions: Allergies Allergy/AdvReac Type Severity Reaction Status Date / Time aspirin Allergy NAUSEA Verified 05/13/17 17:14 lactose Allergy NAUSEA Verified 05/13/17 17:14 Physical Exam - Constitutional Appears: No Acute Distress - Head Exam Head Exam: ATRAUMATIC, NORMOCEPHALIC - Eye Exam Eye Exam: Normal appearance - ENT Exam ENT Exam: Mucous Membranes Moist - Respiratory Exam Respiratory Exam: NORMAL BREATHING PATTERN - Cardiovascular Exam Cardiovascular Exam: REGULAR RHYTHM - GI/Abdominal Exam GI & Abdominal Exam: Normal Bowel Sounds, Soft. absent: Tenderness - Extremities Exam Extremities exam: Positive for: normal capillary refill Additional comments: LUE AVF with palpable thrill and bruit - noticeable pseudoaneurysms formation, multiple area of skin break down from HD access bandage on arm with no evidence of bleeding peripheral pulses in upper extremity intact - Neurological Exam Neurological exam: Alert, CN II-XII Intact, Oriented x3 - Psychiatric Exam Psychiatric exam: Normal Affect, Normal Mood - Skin Skin Exam: Dry, Warm Results - Vital Signs Recent Vital Signs: Last Vital Signs Temp 97.8 F 08/02/17 13:40 Pulse 84 08/02/17 13:40 Resp 20 08/02/17 13:40 BP 127/62 08/02/17 13:40 Pulse Ox 94 L 08/02/17 15:05 - Labs Result Diagrams: 08/02/17 15:34 08/02/17 15:34 Labs: Laboratory Results - last 24 hr 08/02/17 08/02/17 08/02/17 15:34 15:34 15:34 WBC 7.1 D RBC 3.24 L Hgb 11.0 D Hct 32.9 L MCV 101.4 H D MCH 33.9 H MCHC 33.4 RDW 16.9 H Plt Count 246 D MPV 7.6 Neut % (Auto) 61.5 Lymph % (Auto) 16.0 L [place] % (Auto) 18.4 H Eos % (Auto) 3.3 Baso % (Auto) 0.8 Neut # (Auto) 4.4 Lymph # (Auto) 1.1 [place] # (Auto) 1.3 H Eos # (Auto) 0.2 Baso # (Auto) 0.1 Sodium 132 Potassium 5.1 Chloride 94 L Carbon Dioxide 28 Anion Gap 15 BUN 42 H Creatinine 4.1 H Est GFR ( Amer) 13 Est GFR (Non-Af Amer) 11 Random Glucose 95 Calcium 8.5 L Total Bilirubin 0.8 AST 57 H D ALT 15 Alkaline Phosphatase 863 H D Total Protein 7.7 Albumin 3.3 L Globulin 4.3 H Albumin/Globulin Ratio 0.8 L Blood Type O POSITIVE Antibody Screen Negative Assessment & Plan - Assessment and Plan (Free Text) Plan: 66 F with wound on LUE AVF -NPO past mn for permacath placement -Management as per primary -Further recs as per Dr. Wanda Nick PGY1
[2017-08-03 09:29] LABS: BASO # 0.1 K/uL (0.0-0.2); EOS # 0.3 K/uL (0.0-0.7); EOS % 3.7 % (0.0-4.0); HEMOGLOBIN 10.7 g/dL (11.0-16.0); LYMPH # 1.2 K/uL (1.0-4.3); LYMPH % 16.8 % (20.0-40.0); MEAN CELL VOLUME 101.5 fL (81.0-99.0); MEAN CORPUSCULAR HEMOGLOBIN 33.8 pg (27.0-31.0); MEAN CORPUSCULAR HGB CONC 33.3 g/dL (33.0-37.0); MEAN PLATELET VOLUME 7.6 fL (7.2-11.7); MONO # 1.3 K/uL (0.0-0.8); MONO % 17.9 % (0.0-10.0); NEUT # 4.3 K/uL (1.8-7.0); NEUT % 60.6 % (50.0-75.0); NRBC % 0.1 % (0.0-2.0); RBC 3.16 Mil/uL (3.80-5.20); RED CELL DISTRIBUTION WIDTH 17.2 % (11.5-14.5)
[2017-08-03 09:38] LABS: INR 1.1; PROTHROMBIN TIME 12.5 SECONDS (9.7-12.2)
--- NOTE | 2017-08-03 09:40 | RAD ---
HISTORY: pre op COMPARISON: Chest x-ray performed 05/13/17 TECHNIQUE: Chest, one view. FINDINGS: Examination limited by habitus. LUNGS: Moderate interstitial prominence consistent with edema or infection. Bilateral lower lobe pleural effusions and/or consolidations. Please note that chest x-ray has limited sensitivity for the detection of pulmonary masses. PLEURA: No significant pleural effusion identified. No definite pneumothorax . CARDIOVASCULAR: Cardiomegaly. Atherosclerotic calcifications of the aorta. OSSEOUS STRUCTURES: Degenerative changes. VISUALIZED UPPER ABDOMEN: Unremarkable. OTHER FINDINGS: Partially imaged subclavian/ axillary stent. IMPRESSION: Moderate interstitial prominence consistent with edema or infection. Bilateral lower lobe pleural effusions and/or consolidations. Cardiomegaly. Additional findings as above.
[2017-08-03] MEDS ORDERED: Midazolam 2 MG/2 ML VIAL ONE (09:45)
[2017-08-03] MEDS ORDERED: Propofol 10 mg/ml Inj (20 ML) ONE (09:45)
[2017-08-03] MEDS ORDERED: HEPARIN-NS 5,000 UNITS/500 ML 5,000 UNIT/500 ML BAG IV ONE (09:53)
[2017-08-03] MEDS ORDERED: Lidocaine 1% Inj (20ml) ONE (09:54)
[2017-08-03] MEDS ORDERED: Etomidate 20 mg/10ml Inj IV ONE (09:56)
[2017-08-03 09:58] LABS: ALB/GLOB RATIO 0.7 (1.0-2.1); ALBUMIN 3.3 g/dL (3.5-5.0); CALCIUM 8.7 mg/dl (8.6-10.4)
[2017-08-03] MEDS ORDERED: HYDROmorphone 0.5 mg/0.5 ml ISec IVP PRN (10:10)
[2017-08-03] MEDS ORDERED: ceFAZolin 1 gm in NS 1 GM/100 ML BAG IVPB ONE (10:32)
--- NOTE | 2017-08-03 11:24 | PCM.SURG1 ---
Surgeon's Initial Post Op Note - Surgeon's Notes Surgeon: Dr. Muñoz Cloth Finishing Range Tender: PGY1 Type of Anesthesia: General LMA Pre-Operative Diagnosis: End stage renal disease; chronic kidney disease Operative Findings: RIJ well visualized on US. for details see op note Post-Operative Diagnosis: as above Operation Performed: Right IJ permacath placement, with micropuncture needle ultrasound guided, under flouroscopy Specimen/Specimens Removed: none Estimated Blood Loss: EBL {In ML}: 10 Drains Used: No Drains Date of Surgery/Procedure: 08/03/17 Time of Surgery/Procedure: 11:23
--- NOTE | 2017-08-03 11:56 | RAD ---
HISTORY: s/p permacath placement COMPARISON: Chest x-ray performed 08/03/17 at 912 hours TECHNIQUE: Chest, one view. FINDINGS: Right IJ approach dialysis catheter. LUNGS: Moderate interstitial prominence may reflect infection or edema. Small right pleural effusion. Bibasilar atelectasis/infiltrates. No definite pneumothorax. CARDIOVASCULAR: Cardiomegaly. OSSEOUS STRUCTURES: No acute osseous abnormality identified. VISUALIZED UPPER ABDOMEN: Left subclavian/ axillary vascular stent. OTHER FINDINGS: None. IMPRESSION: Right IJ approach dialysis catheter with distal tips at the cavoatrial junction/right atrium. Moderate interstitial prominence may reflect infection or edema. Small right pleural effusion. Bibasilar atelectasis/infiltrates.
--- NOTE | 2017-08-03 13:19 | CP.PCM.PN ---
Subjective - Date & Time of Evaluation Date of Evaluation: 08/03/17 Time of Evaluation: 13:16 - Subjective Subjective: had another accses for dialysis cath insered r side seen post operative has slight cough Objective - Vital Signs/Intake and Output Vital Signs (last 24 hours): Temp Pulse Resp BP Pulse Ox 97.1 F L 86 13 123/54 L 97 08/03/17 12:07 08/03/17 12:07 08/03/17 12:07 08/03/17 12:07 08/03/17 12:07 Intake and Output: 08/03/17 08/03/17 06:59 18:59 Intake Total 720 Balance 720 - Medications Medications: Current Medications Pneumococcal Polyvalent Vaccine (Pneumovax 23 Vaccine) 0.5 ml IM .ONCE ONE Stop: 08/05/17 11:01 - Labs Labs: 08/03/17 09:15 08/03/17 09:15 PT 12.5 SECONDS (9.7-12.2) H 08/03/17 09:15 INR 1.1 08/03/17 09:15 APTT 35 SECONDS (21-34) H 08/03/17 09:15 - Constitutional Appears: Non-toxic - Head Exam Head Exam: NORMAL INSPECTION - Eye Exam Eye Exam: Normal appearance - ENT Exam ENT Exam: Mucous Membranes Moist - Neck Exam Neck Exam: Full ROM - Respiratory Exam Respiratory Exam: Decreased Breath Sounds - Cardiovascular Exam Cardiovascular Exam: REGULAR RHYTHM - GI/Abdominal Exam GI & Abdominal Exam: Normal Bowel Sounds - Extremities Exam Extremities Exam: Normal Inspection - Back Exam Back Exam: NORMAL INSPECTION - Neurological Exam Neurological Exam: Normal Gait - Psychiatric Exam Psychiatric exam: Normal Affect - Skin Skin Exam: Pallor Assessment and Plan - Assessment and Plan (Free Text) Assessment: s/p bleding ulcer dialysis graft s/p insertion of cath r infection prevention coordinator esrf cough hypoxeamia Plan: as per orders cont med dialysis tomoro then d/c home with oxygen and pt at home
[2017-08-03] MEDS ORDERED: Sod Polystyrene Sulf 15 gm/60 ml Susp PO PRN (13:21)
[2017-08-03] MEDS: Metoprolol Succinate 100 mg XL Tab PO SCH (14:31)
[2017-08-03] MEDS: Calcium-Vit D 500 mg-200 Units Tab UD PO SCH (14:31)
[2017-08-03] MEDS: Oxycodone/Acetaminophen 5/325 mg Tab PO PRN ×2 (18:03→23:29)
--- NOTE | 2017-08-03 23:16 | OP ---
PROCEDURE DATE: 08/03/2017. PREOPERATIVE DIAGNOSES: Renal failure, aneurysmal fistula, recent bleeding. POSTOPERATIVE DIAGNOSES: Renal failure, aneurysmal fistula, recent bleeding. PROCEDURE CARRIED OUT: Placement of PermCath in right jugular vein with C-arm fluoroscopy with ultrasound-guided puncture and micropuncture technique. SURGEON: Dr. Muñoz. WIRE TECHNICIAN: Dr. Whitmore. ANESTHESIOLOGIST: Dr. Friedman. TYPE OF ANESTHESIA: General. 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 She refused to have the fistula ligated or revised at this time. A PermCath was placed so that the fistula could be . Nonetheless, she has had previous central vein stenosis and I think that the most opportune thing to do would be place an entirely new access, but she declines this. DESCRIPTION OF PROCEDURE: The patient was given anesthesia and antibiotics. Using ultrasound guidance and micropuncture technique, the jugular vein was cannulated in the neck on the right side. A guidewire was advanced centrally, exchanged for a #35 wire through a catheter. Then a new catheter deployed at the appropriate location straight down on the chest wall, it originated on the right chest wall, was tunneled under the skin, went to the jugular vein and in the superior vena cava. This flushed with heparinized saline with good return and the operation carried out. PermCath right jugular vein with C-arm fluoroscopy and ultrasound-guided puncture and micropuncture technique. Ultrasound images of the neck showed the vein was 16 mm in diameter with normal compressibility and no evidence of intraluminal thrombosis. Zach Muñoz Jr., MD
[2017-08-04] MEDS: Oxycodone/Acetaminophen 5/325 mg Tab PO PRN ×3 (04:56→21:48)
[2017-08-04] MEDS: Metoprolol Succinate 100 mg XL Tab PO SCH (10:02)
[2017-08-04] MEDS ORDERED: HEPARIN-NS 5,000 UNITS/500 ML 10,000 UNIT/1,000 ML BAG IV ONE (10:13)
[2017-08-04] MEDS ORDERED: Iohexol 240 200 ML ONE (10:15)
[2017-08-04] MEDS ORDERED: Sodium Chloride 0.9% 1,000 ML IV ONE (10:50)
[2017-08-04] MEDS ORDERED: Propofol 10 mg/ml Inj (20 ML) ONE (11:07)
[2017-08-04] MEDS: Calcium-Vit D 500 mg-200 Units Tab UD PO SCH (11:16)
[2017-08-04] MEDS ORDERED: ceFAZolin 1 gm in NS 1 GM/100 ML BAG IVPB ONE (11:25)
[2017-08-04 11:26] LABS: ALB/GLOB RATIO 0.7 (1.0-2.1); ALBUMIN 3.4 g/dL (3.5-5.0); CALCIUM 8.6 mg/dl (8.6-10.4)
--- NOTE | 2017-08-04 11:29 | CP.PCM.CON ---
History of Present Illness - History of Present Illness History of Present Illness: Consulted for HD 66 F with PMH that includes ESRD on HD, presents to [facility] with complaints of bleeding from fistula site. Patient states she receives HD on MWF. She reports that if they stick her in certain places it will continue to bleed. Patient says that she has to show dialysis nurse where to get access. Patient was at dialysis friday when it began to bleed. She applied ointment and bandage to the area. The area began bleeding when the bandage was removed this morning and took over twenty mins to control. Pt received a permcath for hd access. PMH: Anxiety, Arthritis, CHF, Diverticulitis, Fibromyalgia, history of multiple Fractures (Current right leg fx, RUE, LLE), HTN, Osteoporosis, Pancreatitis, ESRD on HD TIA Meds: As per EMR Allergy: ASA, lactose PSH: AVF, Cholecystectomy FH:unknown Social: former smoker, denies Etoh/illicit drug use Past Patient History - Infectious Disease Hx of Infectious Diseases: None - Past Medical History & Family History Past Medical History?: Yes - Past Social History Smoking Status: Never Smoked - CARDIAC Hx Congestive Heart Failure: Yes Hx Hypertension: Yes - PULMONARY Hx Respiratory Disorders: No - NEUROLOGICAL Hx Neurological Disorder: Yes Hx Transient Ischemic Attacks (TIA): Yes - HEENT Hx HEENT Problems: No - RENAL Date of Last Dialysis Treatment: 08/01/17 - ENDOCRINE/METABOLIC Hx Endocrine Disorders: No - HEMATOLOGICAL/ONCOLOGICAL Hx Blood Disorders: Yes Hx Blood Transfusions: Yes Hx Blood Transfusion Reaction: Yes Hx Shingles: Yes (right arm) - INTEGUMENTARY Hx Dermatological Problems: No - MUSCULOSKELETAL/RHEUMATOLOGICAL Hx Falls: Yes - GASTROINTESTINAL Hx Gastrointestinal Disorders: Yes Hx Diverticulitis: Yes Hx Pancreatitis: Yes - GENITOURINARY/GYNECOLOGICAL Hx Genitourinary Disorders: No Other/Comment: DIALYSIS PATIENT - PSYCHIATRIC Hx Substance Use: No - SURGICAL HISTORY Hx Surgeries: Yes Hx Cholecystectomy: Yes - ANESTHESIA Hx Anesthesia: Yes Hx Anesthesia Reactions: No Hx Malignant Hyperthermia: No Meds Allergies/Adverse Reactions: Allergies Allergy/AdvReac Type Severity Reaction Status Date / Time aspirin Allergy NAUSEA Verified 05/13/17 17:14 lactose Allergy NAUSEA Verified 05/13/17 17:14 - Medications Medications: Current Medications Ascorbic Acid (Vitamin C 500 Mg Tab) 1,500 mg PO DAILY [facility] Last Admin: 08/04/17 11:16 Dose: Not Given Calcium/Vitamin D (Oyster Shell Calcium/Vitamin D 500 Mg-200 Iu) 1 tab PO DAILY [facility] Last Admin: 08/04/17 11:16 Dose: Not Given Clonidine HCl (Catapres) 0.1 mg PO HS [facility] Last Admin: 08/03/17 21:57 Dose: Not Given Docusate Sodium (Colace) 100 mg PO BID [facility] Last Admin: 08/04/17 11:16 Dose: Not Given Metoprolol Succinate (Toprol Xl) 100 mg PO DAILY [facility] Last Admin: 08/04/17 10:02 Dose: 100 mg Oxycodone/Acetaminophen (Percocet 5/325 Mg Tab) 1 tab PO Q4H PRN PRN Reason: Pain, severe (8-10) Stop: 08/06/17 13:22 Last Admin: 08/04/17 04:56 Dose: 1 tab Pneumococcal Polyvalent Vaccine (Pneumovax 23 Vaccine) 0.5 ml IM .ONCE ONE Stop: 08/05/17 11:01 Sertraline HCl (Zoloft) 50 mg PO Q12 [facility] Last Admin: 08/04/17 11:16 Dose: Not Given Sodium Polystyrene Sulfonate (Kayexalate Susp) 15 gm PO ONCE PRN PRN Reason: K ABOVE 5.5 Last Admin: 08/03/17 18:03 Dose: 15 gm Physical Exam - Constitutional Appears: Non-toxic, No Acute Distress, Chronically Ill - Head Exam Head Exam: NORMAL INSPECTION - Eye Exam Eye Exam: Normal appearance, PERRL - ENT Exam ENT Exam: Mucous Membranes Moist, Normal Exam - Respiratory Exam Respiratory Exam: Clear to Auscultation Bilateral, NORMAL BREATHING PATTERN - Cardiovascular Exam Cardiovascular Exam: REGULAR RHYTHM, RRR (rt chest permcath) - GI/Abdominal Exam GI & Abdominal Exam: Distended, Soft - Extremities Exam Extremities exam: Positive for: normal inspection (rt leg in boot) - Neurological Exam Neurological exam: Alert, CN II-XII Intact, Oriented x3 - Skin Skin Exam: Dry, Normal Color, Warm Results - Vital Signs Recent Vital Signs: Last Vital Signs Temp 97.9 F 08/04/17 07:50 Pulse 79 08/04/17 07:50 Resp 20 08/04/17 07:50 BP 120/65 08/04/17 07:50 Pulse Ox 96 08/04/17 07:50 - Labs Result Diagrams: 08/03/17 09:15 08/03/17 09:15 Assessment & Plan (1) Failing arteriovenous fistula Status: Acute (2) ESRD (end stage renal disease) on dialysis Status: Acute - Assessment and Plan (Free Text) Assessment: esrd anemia of renal dz avf bleeding hd today and mwf use permcath surgery on board hgb at goal bp controlled
[2017-08-04] MEDS ORDERED: Neostigmine Methylsulfate 3mg/3ml Syringe IV ONE (12:44)
--- NOTE | 2017-08-04 13:10 | PCM.SURG1 ---
Surgeon's Initial Post Op Note - Surgeon's Notes Surgeon: Dr. Muñoz Quality Assurance Supervisor Trim: Renuka Chavez, PGY-1; Isabelle Pa OMS-III; Jhon Dowd OMS-III Type of Anesthesia: General Endo Pre-Operative Diagnosis: Failed AVF of Left extremity Operative Findings: See op report Post-Operative Diagnosis: Failed AVF of Left upper extremity Operation Performed: Left upper extremity AVF revision with Hybrid graft Specimen/Specimens Removed: None Estimated Blood Loss: EBL {In ML}: 250 Blood Products Given: N/A Drains Used: No Drains Post-Op Condition: Good Date of Surgery/Procedure: 08/04/17 Time of Surgery/Procedure: 13:10
[2017-08-04] MEDS: HYDROmorphone 0.5 mg/0.5 ml ISec IVP PRN ×2 (13:25→13:56)
--- NOTE | 2017-08-04 13:44 | RAD ---
PROCEDURE: Intraoperative Fluoroscopy. HISTORY: RENAL FAILURE FINDINGS: Fluoroscopic assistance was provided for right-sided PermCath placement. Please refer to the operative report from JORDAN Jara.
--- NOTE | 2017-08-04 15:42 | RAD ---
PROCEDURE: Intraoperative Fluoroscopy. HISTORY: RENAL FAILURE FINDINGS: Fluoroscopic assistance was provided for left arm hybrid graft. Please refer to the operative report from JORDAN Jara. Total exam DLP: 21.28. (mGy) Total fluoroscopic time (continuous mode) utilized during the procedure: 210.9. Seconds
--- NOTE | 2017-08-04 21:14 | CARD ---
APPROVED REPORT EKG Measurement Heart [id number] WI 100P [id number] <Conclusion> Sinus rhythm with short WI Left axis deviation Right bundle branch block Inferior infarct, age undetermined Abnormal ECG
[2017-08-05] MEDS: Oxycodone/Acetaminophen 5/325 mg Tab PO PRN ×3 (02:52→15:12)
--- NOTE | 2017-08-05 07:25 | OP ---
PROCEDURE DATE: 08/04/2017 PREOPERATIVE DIAGNOSIS: Renal failure, AV fistula left arm. PROCEDURE CARRIED OUT: Revision of AV fistula of left arm with intraoperative arteriogram and creation of hybrid shunt with an angioplasty and placement of stent in the subclavian vein. SURGEON: Zach Muñoz Jr., MD ETCHER ENAMELING: None. ANESTHESIOLOGIST: Dr. Osborne. 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 She has had central vein problems as evidenced by previously placed subclavian vein stent, placed elsewhere. OPERATIVE FINDINGS: Initially at the beginning of the procedure, we did a venogram showing the central veins which were quick, prompt, and direct flow through the previously placed stent without any evidence of intraluminal stenosis. DESCRIPTION OF PROCEDURE: Subsequent to this, we then punctured the arterial portion of the fistula. We dissected at the venous portion. We punctured the venous portion, deployed a 9 mm stent, brought this through a subcutaneous tunnel and anastomosed it using loupe magnification, heparin anticoagulation to the arterial portion. Prior to this, we carried out a balloon angioplasty with venous anastomosis and placing a stent showing a 9 mm balloon and a 9 mm stent in diameter and this was quite successfully deployed. There was excellent flow through this. We then completed the anastomosis, closed the wounds, and terminated the procedure. ESTIMATED BLOOD LOSS IN THE PROCEDURE: 300 mL or more. OPERATION CARRIED OUT: Revision of AV fistula left arm with ligation to get rid of the bleeding aneurysm and then bypassing hybrid shunt. Zach Muñoz Jr., MD cc: Marcelino Yeboah MD
--- NOTE | 2017-08-05 07:58 | CP.PCM.PN ---
Subjective - Date & Time of Evaluation Date of Evaluation: 08/05/17 Time of Evaluation: 06:30 - Subjective Subjective: Vascular Surgery- Dr. Muñoz Patient seen and exmained at bedside. pain around incision site. well controlled at this time w/ current pain regiment. 5/5 muscle strength in LUE. No new complaints. denies weakness or numbness in LUE Objective - Vital Signs/Intake and Output Vital Signs (last 24 hours): Temp Pulse Resp BP Pulse Ox 98.2 F 91 H 20 114/60 100 08/05/17 04:10 08/05/17 04:10 08/05/17 04:10 08/05/17 04:10 08/05/17 04:10 - Medications Medications: Current Medications Ascorbic Acid (Vitamin C 500 Mg Tab) 1,500 mg PO DAILY [facility]PLAC[facility] BY [facility] Last Admin: 08/04/17 11:16 Dose: Not Given Calcium/Vitamin D (Oyster Shell Calcium/Vitamin D 500 Mg-200 Iu) 1 tab PO DAILY [facility] Last Admin: 08/04/17 11:16 Dose: Not Given Clonidine HCl (Catapres) 0.1 mg PO HS [facility]PLACED BY [facility] Last Admin: 08/04/17 21:41 Dose: 0.1 mg Docusate Sodium (Colace) 100 mg PO BID [facility]PL[facility] Last Admin: 08/04/17 21:52 Dose: 100 mg Metoprolol Succinate (Toprol Xl) 100 mg PO DAILY [facility] Last Admin: 08/04/17 10:02 Dose: 100 mg Oxycodone/Acetaminophen (Percocet 5/325 Mg Tab) 1 tab PO Q4H PRN PRN Reason: Pain, severe (8-10) Stop: 08/06/17 13:22 Last Admin: 08/05/17 02:52 Dose: 1 tab Pneumococcal Polyvalent Vaccine (Pneumovax 23 Vaccine) 0.5 ml IM .ONCE ONE Stop: 08/05/17 11:01 Sertraline HCl (Zoloft) 50 mg PO Q12 [facility]PLAC[facility] BY [facility] Last Admin: 08/04/17 21:42 Dose: 50 mg Sodium Polystyrene Sulfonate (Kayexalate Susp) 15 gm PO ONCE PRN PRN Reason: K ABOVE 5.5 Last Admin: 08/03/17 18:03 Dose: 15 gm - Labs Labs: 08/03/17 09:15 08/04/17 11:08 PT 12.5 SECONDS (9.7-12.2) H 08/03/17 09:15 INR 1.1 08/03/17 09:15 APTT 35 SECONDS (21-34) H 08/03/17 09:15 - Constitutional Appears: Non-toxic, No Acute Distress - Head Exam Head Exam: ATRAUMATIC - Respiratory Exam Respiratory Exam: NORMAL BREATHING PATTERN. absent: Accessory Muscle Use, Respiratory Distress - Cardiovascular Exam Cardiovascular Exam: +S1, +S2. absent: Bradycardia, Tachycardia - GI/Abdominal Exam GI & Abdominal Exam: Soft. absent: Distended, Firm, Guarding, Rigid, Tenderness - Extremities Exam Additional comments: b/l palpable radial pulses dressing C/D/I no strikethrough - Neurological Exam Neurological Exam: Alert, Awake, Oriented x3 - Skin Skin Exam: Intact, Warm Assessment and Plan - Assessment and Plan (Free Text) Assessment: 66F s/p Left upper extremity AVF revision with Hybrid graft w/ intraoperative ateriogram POD 1; RIJ permacath placement POD # 2 Plan: - pain control prn - encourage L UE mobility and use - monitor dressing site - cleared for dialysis from permacath - cleared for discharge from a surgical standpoint - further recs per Dr. Muñoz surgical attending Nicolas Whitmore PGY1
[2017-08-05] MEDS: Metoprolol Succinate 100 mg XL Tab PO SCH (09:10)
[2017-08-05] MEDS: Calcium-Vit D 500 mg-200 Units Tab UD PO SCH (09:10)
--- NOTE | 2017-08-05 09:58 | CP.PCM.CON ---
History of Present Illness - History of Present Illness History of Present Illness: Pt couldn't be seen yesterday as she was in OR getting avf angioplasty 66 F with PMH that includes ESRD on HD, presents to [facility] with complaints of bleeding from fistula site. Patient states she receives HD on MWF. She reports that if they stick her in certain places it will continue to bleed. Patient says that she has to show dialysis nurse where to get access. Patient was at dialysis last week when it began to bleed. She was then [facility]. Patient admits to some soreness in the area but has no other complaints. She had a permcath placed over the weekend and was dialyzed yesterday. av graft placed yesterday. PMH: Anxiety, Arthritis, CHF, Diverticulitis, Fibromyalgia, history of multiple Fractures (Current right leg fx, RUE, LLE), HTN, Osteoporosis, Pancreatitis, ESRD on HD TIA Meds: As per EMR Allergy: ASA, lactose PSH: AVF, Cholecystectomy FH:unknown Social: former smoker, denies Etoh/illicit drug use Review of Systems - Review of Systems All systems: reviewed and no additional remarkable complaints except (as per HPI ) Past Patient History - Infectious Disease Hx of Infectious Diseases: None - Past Medical History & Family History Past Medical History?: Yes - Past Social History Smoking Status: Never Smoked - CARDIAC Hx Congestive Heart Failure: Yes Hx Hypertension: Yes - PULMONARY Hx Respiratory Disorders: No - NEUROLOGICAL Hx Neurological Disorder: Yes Hx Transient Ischemic Attacks (TIA): Yes - HEENT Hx HEENT Problems: No - RENAL Date of Last Dialysis Treatment: 08/01/17 - ENDOCRINE/METABOLIC Hx Endocrine Disorders: No - HEMATOLOGICAL/ONCOLOGICAL Hx Blood Disorders: Yes Hx Blood Transfusions: Yes Hx Blood Transfusion Reaction: Yes Hx Shingles: Yes (right arm) - INTEGUMENTARY Hx Dermatological Problems: No - MUSCULOSKELETAL/RHEUMATOLOGICAL Hx Falls: Yes - GASTROINTESTINAL Hx Gastrointestinal Disorders: Yes Hx Diverticulitis: Yes Hx Pancreatitis: Yes - GENITOURINARY/GYNECOLOGICAL Hx Genitourinary Disorders: No Other/Comment: DIALYSIS PATIENT - PSYCHIATRIC Hx Substance Use: No - SURGICAL HISTORY Hx Surgeries: Yes Hx Cholecystectomy: Yes - ANESTHESIA Hx Anesthesia: Yes Hx Anesthesia Reactions: No Hx Malignant Hyperthermia: No Meds Allergies/Adverse Reactions: Allergies Allergy/AdvReac Type Severity Reaction Status Date / Time aspirin Allergy NAUSEA Verified 05/13/17 17:14 lactose Allergy NAUSEA Verified 05/13/17 17:14 - Medications Medications: Current Medications Ascorbic Acid (Vitamin C 500 Mg Tab) 1,500 mg PO DAILY [facility] Last Admin: 08/05/17 09:10 Dose: 1,500 mg Calcium/Vitamin D (Oyster Shell Calcium/Vitamin D 500 Mg-200 Iu) 1 tab PO DAILY [facility] Last Admin: 08/05/17 09:10 Dose: 1 tab Clonidine HCl (Catapres) 0.1 mg PO HS [facility] Last Admin: 08/04/17 21:41 Dose: 0.1 mg Docusate Sodium (Colace) 100 mg PO BID [facility] Last Admin: 08/05/17 09:10 Dose: 100 mg Metoprolol Succinate (Toprol Xl) 100 mg PO DAILY [facility] Last Admin: 08/05/17 09:10 Dose: 100 mg Oxycodone/Acetaminophen (Percocet 5/325 Mg Tab) 1 tab PO Q4H PRN PRN Reason: Pain, severe (8-10) Stop: 08/06/17 13:22 Last Admin: 08/05/17 09:10 Dose: 1 tab Pneumococcal Polyvalent Vaccine (Pneumovax 23 Vaccine) 0.5 ml IM .ONCE ONE Stop: 08/05/17 11:01 Sertraline HCl (Zoloft) 50 mg PO Q12 [facility] Last Admin: 08/05/17 09:10 Dose: 50 mg Sodium Polystyrene Sulfonate (Kayexalate Susp) 15 gm PO ONCE PRN PRN Reason: K ABOVE 5.5 Last Admin: 08/03/17 18:03 Dose: 15 gm Physical Exam - Constitutional Appears: Non-toxic, No Acute Distress - Head Exam Head Exam: NORMAL INSPECTION - Eye Exam Eye Exam: Normal appearance, PERRL Pupil Exam: PERRL - ENT Exam ENT Exam: Mucous Membranes Moist, Normal Exam - Neck Exam Neck exam: Positive for: Normal Inspection - Respiratory Exam Respiratory Exam: Clear to Auscultation Bilateral, NORMAL BREATHING PATTERN - Cardiovascular Exam Cardiovascular Exam: REGULAR RHYTHM, RRR - GI/Abdominal Exam GI & Abdominal Exam: Distended, Normal Bowel Sounds, Soft - Extremities Exam Extremities exam: Positive for: normal inspection (lt foot in boot), pedal edema Additional comments: lue arm in dressing, tender to plapation - Neurological Exam Neurological exam: Alert, Oriented x3 - Psychiatric Exam Psychiatric exam: Normal Affect, Normal Mood - Skin Skin Exam: Dry, Intact, Normal Color Results - Vital Signs Recent Vital Signs: Last Vital Signs Temp 98.2 F 08/05/17 07:00 Pulse 87 08/05/17 07:00 Resp 20 08/05/17 07:00 BP 121/59 L 08/05/17 07:00 Pulse Ox 98 08/05/17 07:00 - Labs Result Diagrams: 08/03/17 09:15 08/04/17 11:08 Labs: Laboratory Results - last 24 hr 08/04/17 11:08 Sodium 134 Potassium 5.5 H Chloride 96 L Carbon Dioxide 24 Anion Gap 20 BUN 62 H Creatinine 6.2 H Est GFR ( Amer) 8 Est GFR (Non-Af Amer) 7 Random Glucose 92 Calcium 8.6 Total Bilirubin 0.9 AST 38 H ALT 21 Alkaline Phosphatase 834 H Total Protein 8.0 Albumin 3.4 L Globulin 4.6 H Albumin/Globulin Ratio 0.7 L Assessment & Plan (1) Failing arteriovenous fistula Status: Acute (2) ESRD (end stage renal disease) on dialysis Status: Acute (3) Anemia Status: Acute (4) HTN (hypertension) Status: Acute - Assessment and Plan (Free Text) Assessment: maintain hd mwf, use permcath s/p av graft bp acceptable pain control jacinto w/hd
[2017-08-05] MEDS ORDERED: Pneumococcal 23-Valent Vaccine IM ONE (11:00)
--- NOTE | 2017-08-05 11:26 | CP.PCM.PN ---
Subjective - Date & Time of Evaluation Date of Evaluation: 08/05/17 Time of Evaluation: 11:23 - Subjective Subjective: pt stable confirtable on oxygen slight cough no more bleeding fromarm Objective - Vital Signs/Intake and Output Vital Signs (last 24 hours): Temp Pulse Resp BP Pulse Ox 98.2 F 87 20 121/59 L 98 08/05/17 07:00 08/05/17 07:00 08/05/17 07:00 08/05/17 07:00 08/05/17 07:00 - Medications Medications: Current Medications Ascorbic Acid (Vitamin C 500 Mg Tab) 1,500 mg PO DAILY [facility] Last Admin: 08/05/17 09:10 Dose: 1,500 mg Calcium/Vitamin D (Oyster Shell Calcium/Vitamin D 500 Mg-200 Iu) 1 tab PO DAILY [facility] Last Admin: 08/05/17 09:10 Dose: 1 tab Clonidine HCl (Catapres) 0.1 mg PO HS [facility] Last Admin: 08/04/17 21:41 Dose: 0.1 mg Docusate Sodium (Colace) 100 mg PO BID [facility] Last Admin: 08/05/17 09:10 Dose: 100 mg Metoprolol Succinate (Toprol Xl) 100 mg PO DAILY [facility] Last Admin: 08/05/17 09:10 Dose: 100 mg Oxycodone/Acetaminophen (Percocet 5/325 Mg Tab) 1 tab PO Q4H PRN PRN Reason: Pain, severe (8-10) Stop: 08/06/17 13:22 Last Admin: 08/05/17 09:10 Dose: 1 tab Sertraline HCl (Zoloft) 50 mg PO Q12 [facility] Last Admin: 08/05/17 09:10 Dose: 50 mg Sodium Polystyrene Sulfonate (Kayexalate Susp) 15 gm PO ONCE PRN PRN Reason: K ABOVE 5.5 Last Admin: 08/03/17 18:03 Dose: 15 gm - Labs Labs: 08/03/17 09:15 08/04/17 11:08 PT 12.5 SECONDS (9.7-12.2) H 08/03/17 09:15 INR 1.1 08/03/17 09:15 APTT 35 SECONDS (21-34) H 08/03/17 09:15 - Constitutional Appears: Non-toxic - Head Exam Head Exam: ATRAUMATIC - Eye Exam Eye Exam: Normal appearance Pupil Exam: PERRL - ENT Exam ENT Exam: Mucous Membranes Moist - Neck Exam Neck Exam: Full ROM - Respiratory Exam Respiratory Exam: Clear to Ausculation Bilateral - Cardiovascular Exam Cardiovascular Exam: REGULAR RHYTHM - GI/Abdominal Exam GI & Abdominal Exam: Normal Bowel Sounds - Rectal Exam Rectal Exam: NORMAL INSPECTION - Extremities Exam Extremities Exam: Normal Inspection - Back Exam Back Exam: NORMAL INSPECTION - Neurological Exam Neurological Exam: Alert, Awake, Oriented x3 - Psychiatric Exam Psychiatric exam: Normal Affect - Skin Skin Exam: Pallor Assessment and Plan - Assessment and Plan (Free Text) Assessment: esrf s/p bleeding l armdialysis grft s/p new accses for dialysis cough s/p fxs Plan: trnsfer back to [facility]
--- NOTE | 2017-08-05 13:26 | CP.PCM.PN ---
Subjective - Date & Time of Evaluation Date of Evaluation: 08/05/17 Time of Evaluation: 11:15 - Subjective Subjective: WELDER SETTER RESISTANCE MACHINE NOTES Patient seen today, denies any chest pain, sob, no bleeding noted from the fistula site, c/o cough non productive s/p AV fistula revision and permacath placement seen by Evonne Dixon, stable for discharge to [facility] an dDr. Evonne will follow the patient at [facility] Objective - Vital Signs/Intake and Output Vital Signs (last 24 hours): Temp Pulse Resp BP Pulse Ox 98.2 F 87 20 121/59 L 98 08/05/17 07:00 08/05/17 07:00 08/05/17 07:00 08/05/17 07:00 08/05/17 07:00 - Medications Medications: Current Medications Ascorbic Acid (Vitamin C 500 Mg Tab) 1,500 mg PO DAILY [facility] Last Admin: 08/05/17 09:10 Dose: 1,500 mg Calcium/Vitamin D (Oyster Shell Calcium/Vitamin D 500 Mg-200 Iu) 1 tab PO DAILY [facility] Last Admin: 08/05/17 09:10 Dose: 1 tab Clonidine HCl (Catapres) 0.1 mg PO HS [facility] Last Admin: 08/04/17 21:41 Dose: 0.1 mg Docusate Sodium (Colace) 100 mg PO BID [facility] Last Admin: 08/05/17 09:10 Dose: 100 mg Metoprolol Succinate (Toprol Xl) 100 mg PO DAILY [facility] Last Admin: 08/05/17 09:10 Dose: 100 mg Oxycodone/Acetaminophen (Percocet 5/325 Mg Tab) 1 tab PO Q4H PRN PRN Reason: Pain, severe (8-10) Stop: 08/06/17 13:22 Last Admin: 08/05/17 09:10 Dose: 1 tab Sertraline HCl (Zoloft) 50 mg PO Q12 [facility] Last Admin: 08/05/17 09:10 Dose: 50 mg Sodium Polystyrene Sulfonate (Kayexalate Susp) 15 gm PO ONCE PRN PRN Reason: K ABOVE 5.5 Last Admin: 08/03/17 18:03 Dose: 15 gm - Labs Labs: 08/03/17 09:15 08/04/17 11:08 PT 12.5 SECONDS (9.7-12.2) H 08/03/17 09:15 INR 1.1 08/03/17 09:15 APTT 35 SECONDS (21-34) H 08/03/17 09:15
[2017-08-05 16:14] VITALS: BP 145/66; PULSE 81; RESP 18; TEMP 98.7; O2SAT 97
--- NOTE | 2017-08-30 08:40 | DS ---
HISTORY OF PRESENT ILLNESS: The patient came in from alf. She has end-stage renal failure and she has a shunt which was bleeding. She had an ulcer in the shunt and it was bleeding, so she was transferred to the hospital. At the time of admission, her vital signs were stable. She has no fever. Her lungs were clear. She has a history of arthritis, congestive heart failure, diverticulitis, fibromyalgia, fractures of arms and legs. HOSPITAL COURSE: The patient was admitted and Dr. Muñoz was called for consultation. Dr. Muñoz did right Perm-a-Cath placement with micropuncture needle ultrasound-guided under fluoroscopy and the patient tolerated the procedure well and she was started on dialysis again. She has no more bleeding. She was stable on oxygen, and she was transferred back to the alf to continue her care as well as her dialysis. DIAGNOSES: 1. End-stage renal failure. 2. Bleeding ulcer of the shunt. 3. Placement of a new access for dialysis. 4. Anemia. 5. Anxiety. 6. Short of breath, hypoxic. Cari Douglass MD
== END 2017-08-05 19:23 | disposition designated cancer center or children's hospital (05) | DRG 252 ==
LOC: C.ER 13:31 → C.9E 14:33 → C.6T 08-03 02:51
PROVIDERS: ADMIT Internal Medicine; ATTEND Internal Medicine
PROC: 05HM33Z Insertion of Infusion Device into Right Internal Jugular Vein, Percutaneous Approach (ICD-10-PCS; 2017-08-03)
PROC: B543ZZA Ultrasonography of Right Jugular Veins, Guidance (ICD-10-PCS; 2017-08-03)
PROC: 05763DZ Dilation of Left Subclavian Vein with Intraluminal Device, Percutaneous Approach (ICD-10-PCS; 2017-08-04)
PROC: 03WY03Z Revision of Infusion Device in Upper Artery, Open Approach (ICD-10-PCS; principal; 2017-08-04 12:30)
DX: T82.838A Hemorrhage due to vascular prosthetic devices, implants and grafts, initial encounter (principal); N18.6 End stage renal disease; I13.2 Hypertensive heart and chronic kidney disease with heart failure and with stage 5 chronic kidney disease, or end stage renal disease; L98.499 Non-pressure chronic ulcer of skin of other sites with unspecified severity; I50.9 Heart failure, unspecified; M81.0 Age-related osteoporosis without current pathological fracture; M79.7 Fibromyalgia; R09.02 Hypoxemia; F41.9 Anxiety disorder, unspecified; D64.9 Anemia, unspecified; Z99.2 Dependence on renal dialysis; Z86.73 Personal history of transient ischemic attack (TIA), and cerebral infarction without residual deficits; Z90.49 Acquired absence of other specified parts of digestive tract; Z87.891 Personal history of nicotine dependence

== ENCOUNTER 2017-10-02 12:48 | Inpatient (IN) | payer MEDICARE ==
[2017-10-02 12:48] VITALS: BMI 23.8
[2017-10-02 13:36] LABS: BASO # 0.1 K/uL (0.0-0.2); EOS # 0.7 K/uL (0.0-0.7); LYMPH # 1.1 K/uL (1.0-4.3); MONO # 1.8 K/uL (0.0-0.8); MONO % 20.8 % (0.0-10.0)
[2017-10-02 13:41] LABS: BASO % 0.9 % (0.0-2.0); EOS % 7.8 % (0.0-4.0); HEMOGLOBIN 9.9 g/dL (11.0-16.0); LYMPH % 12.1 % (20.0-40.0); MEAN CORPUSCULAR HEMOGLOBIN 31.5 pg (27.0-31.0); MEAN CORPUSCULAR HGB CONC 33.5 g/dL (33.0-37.0); MEAN PLATELET VOLUME 8.2 fL (7.2-11.7); NEUT # 5.2 K/uL (1.8-7.0); NEUT % 58.4 % (50.0-75.0); NRBC % 0.1 % (0.0-2.0); PLATELET COUNT 214 K/uL (130-400); RBC 3.16 Mil/uL (3.80-5.20); RED CELL DISTRIBUTION WIDTH 15.8 % (11.5-14.5); WHITE BLOOD COUNT 8.8 K/uL (4.8-10.8)
[2017-10-02 13:44] LABS: INR 1.2; PROTHROMBIN TIME 12.9 SECONDS (9.7-12.2)
[2017-10-02 13:50] LABS: ALB/GLOB RATIO 0.8 (1.0-2.1); ALBUMIN 3.4 g/dL (3.5-5.0); CALCIUM 8.9 mg/dl (8.6-10.4)
[2017-10-02 14:15] LABS: ANISOCYTOSIS SLIGHT; EOSINOPHIL 11 % (0-4); HYPOCHROMIC SLIGHT; LYMPHOCYTE 8 % (20-40); MONOCYTE 18 % (0-10); NEUTROPHIL 62 % (50-75); PLATELET ESTIMATE NORMAL (NORMAL); REACTIVE LYMPHOCYTES 1 % (0-0); TOTAL CELLS COUNTED 100
--- NOTE | 2017-10-02 15:30 | C.PDOC ---
History Of Present Illness 66 y/o female with history of ESRD with dialysis (T, Keri, Sat) presents to ED sent by Dr. Yeboah for positive blood culture. Patient last received dialysis 2 days ago and reports chills for "couple of days". Patient denies chest pain, sob , fever, nausea, vomiting or any other complaints at this time. Chief Complaint (Nursing): Medical Clearance History Per: Patient History/Exam Limitations: no limitations Onset/Duration Of Symptoms: Days Current Symptoms Are (Timing): Still Present Past Medical History Reviewed: Historical Data, Nursing Documentation, Vital Signs Vital Signs: Last Vital Signs Temp 99 F 10/02/17 16:25 Pulse 73 10/02/17 16:25 Resp 20 10/02/17 16:25 BP 145/64 10/02/17 16:25 Pulse Ox 99 10/02/17 16:25 - Medical History PMH: Anxiety, Arthritis (OA), CHF, Diverticulitis, Fibromyalgia, Fractures ( Current right leg fx, RUE, LLE), HTN, Osteoporosis, Pancreatitis, End Stage Renal Disease, Chronic Kidney Disease, TIA Surgical History: Cholecystectomy - [facility] Procedures (04/28/17) BUNIONECT/SFT/OSTEOTOMY (06/04/13) DILATION OF L SUBCLAV VEIN WITH INTRALUM DEV, PERC APPROACH (08/02/17) IMMOBILIZATION OF LEFT LOWER LEG USING SPLINT (04/28/17) IMMOBILIZATION OF RIGHT UPPER EXTREMITY USING SPLINT (04/28/17) INSERT INFUSION DEV IN R INT JUGULAR VEIN, PERC (08/02/17) OPEN REDUCT-INT FIX TOE (06/04/13) REVISION OF INFUSION DEVICE IN UPPER ARTERY, OPEN APPROACH (08/02/17) ULTRASONOGRAPHY OF RIGHT JUGULAR VEINS, GUIDANCE (08/02/17) Family History: States: No Known Family Hx - Social History Hx Alcohol Use: No Hx Substance Use: No - Immunization History Hx Tetanus Toxoid Vaccination: No Hx Influenza Vaccination: No Hx Pneumococcal Vaccination: No Review Of Systems Constitutional: Positive for: Chills. Negative for: Fever Cardiovascular: Negative for: Chest Pain Respiratory: Negative for: Shortness of Breath Gastrointestinal: Negative for: Nausea, Vomiting Neurological: Negative for: Weakness, Numbness Physical Exam - Physical Exam Appears: Non-toxic, No Acute Distress Skin: Normal Color, Warm, Dry, No Rash Head: Atraumatic, Normacephalic Oral Mucosa: Moist Neck: Normal ROM, Supple Cardiovascular: Rhythm Regular Respiratory: Rales (At bases bilaterally), No Rhonchi, No Wheezing Gastrointestinal/Abdominal: Soft, No Tenderness, No Guarding, No Rebound Extremity: Pedal Edema (Bilateral ), Capillary Refill (<2 seconds), No Deformity , Other (Both upper extremities AV fistula intact) Neurological/Psych: Oriented x3, Normal Speech, Normal Cognition ED Course And Treatment - Laboratory Results Result Diagrams: 10/02/17 13:32 10/02/17 13:32 O2 Sat by Pulse Oximetry: 88 (RA) Pulse Ox Interpretation: Normal Progress Note: Spoke to Dr. Yeboah, advised patient receive 1 dose of Vancomycin after dialysis today. Spoke to Dr. Ureña aware of patient and instructed patient be admitted to general medicine floor Disposition - Disposition Disposition Time: 14:00 Condition: STABLE - Clinical Impression Clinical Impression: ESRD (end stage renal disease) on dialysis, Positive blood culture - Scribe Statement The provider has reviewed the documentation as recorded by the Hedyibdee Marquis All medical record entries made by the Hedyibdee were at my direction and personally dictated by me. I have reviewed the chart and agree that the record accurately reflects my personal performance of the history, physical exam, medical decision making, and the department course for this patient. I have also personally directed, reviewed, and agree with the discharge instructions and disposition.
[2017-10-02] MEDS ORDERED: Home Med 1 UNIT (Oxycodone Hcl/Acetaminophen [Percocet 10-325 Mg Tablet] 1 EACH) PO SCH (22:00)
[2017-10-02] MEDS ORDERED: Vancomycin 1 gm/NS 200 ml 1 GM/200 ML BAG IVPB ONE (22:00)
[2017-10-03] MEDS: Metoprolol Succinate 100 mg XL Tab PO SCH (09:20)
--- NOTE | 2017-10-03 10:06 | CP.PCM.PN ---
Subjective - Date & Time of Evaluation Date of Evaluation: 10/03/17 Time of Evaluation: 11:00 - Subjective Subjective: PGY 2 Medicine Note- Dr. Ureña's Service 66 year old female with past medical history significant for ESRD requiring Hemodialysis presents for further workup. Patient seen and examined in no acute distress. Patient states that she was told that she has an infection in her blood by her kidney doctor. She states that she had a similar issue several months prior. She admits to experiencing chills several days prior. She denies any current fevers , nausea, vomiting, diarrhea or constipation at this time. PMHx- ESRD PSHx- kidney transplant in 2001 Fam Hx- Mom and grandma had uterine cancer. Father -liver diseasw Social Hx- Patient does not smoke but admits to second hand smoke via her denies alcohol use; denies illcit drug use Allergies- ASA- anaphylaxis; lactose intolerant. Objective - Vital Signs/Intake and Output Vital Signs (last 24 hours): Temp Pulse Resp BP Pulse Ox 97.8 F 72 20 128/68 95 10/03/17 09:00 10/03/17 09:00 10/03/17 09:00 10/03/17 09:00 10/03/17 09:00 Intake and Output: 10/03/17 10/03/17 06:59 18:59 Intake Total 100 Balance 100 - Medications Medications: Current Medications Ascorbic Acid (Vitamin C 500 Mg Tab) 1,500 mg PO DAILY [facility] Last Admin: 10/03/17 09:21 Dose: 1,500 mg Cinacalcet (Sensipar) 30 mg PO DAILY [facility] Last Admin: 10/03/17 09:21 Dose: 30 mg Heparin Sodium (Porcine) (Heparin) 5,000 units SC Q12 [facility] Last Admin: 10/03/17 09:21 Dose: 5,000 units Vancomycin/Sodium Chloride (Vancomycin 1 Gm/Ns 200 Ml) 1 gm in 200 mls @ 166.7 mls/hr IVPB TTS MICHELE PRN Reason: Protocol Stop: 10/09/17 10:01 Metoprolol Succinate (Toprol Xl) 100 mg PO DAILY [facility] Last Admin: 10/03/17 09:20 Dose: 100 mg Oxycodone/Acetaminophen (Percocet 5/325 Mg Tab) 1 tab PO Q6H PRN PRN Reason: Pain, moderate (4-7) Stop: 10/05/17 21:59 Sertraline HCl (Zoloft) 50 mg PO BID [facility] Last Admin: 10/03/17 09:20 Dose: 50 mg - Labs Labs: 10/02/17 13:32 10/02/17 13:32 PT 12.9 SECONDS (9.7-12.2) H 10/02/17 13:32 INR 1.2 10/02/17 13:32 APTT 33 SECONDS (21-34) 10/02/17 13:32 - Constitutional Appears: Non-toxic - Head Exam Head Exam: ATRAUMATIC, NORMAL INSPECTION - Eye Exam Eye Exam: EOMI, Normal appearance Pupil Exam: NORMAL ACCOMODATION - ENT Exam ENT Exam: Mucous Membranes Moist - Neck Exam Neck Exam: Full ROM - Respiratory Exam Respiratory Exam: NORMAL BREATHING PATTERN. absent: Wheezes - Cardiovascular Exam Cardiovascular Exam: +S1, +S2 - GI/Abdominal Exam GI & Abdominal Exam: Soft, Normal Bowel Sounds - Extremities Exam Extremities Exam: Full ROM, Normal Capillary Refill - Neurological Exam Neurological Exam: Alert, Awake - Psychiatric Exam Psychiatric exam: Normal Affect, Normal Mood - Skin Skin Exam: Normal Color Assessment and Plan - Assessment and Plan (Free Text) Assessment: Bacteremia F/U Blood cultures at this time F/U SILAS Echo On Vancomycin during dialysis ESRD (end stage renal disease) on dialysis on T, Th, Sat On Sensipar and Epo Nephrology on the case. F/U recommendations Need to assess whether dialysis catheter is involved HTN Metoprolol daily Continut to monitor Prophylactic Measure Heparin SC Q12 F/U PT recommendations Discussed with attending. All planning and management per Dr. Ureña.
--- NOTE | 2017-10-03 13:41 | CP.PCM.CON ---
History of Present Illness - History of Present Illness History of Present Illness: 66 y/o female with history of ESRD with dialysis (T, Ekri, Sat) presents to ED for positive blood culture- +GPC reported. Patient last received dialysis 2 days ago and reports chills for "couple of days". Patient denies chest pain, sob , fever, nausea, vomiting or any other complaints at this time. Was at rehab recently for fx left ankle; suffered pneumonia and possible CHF recently. PMH: ESRD- DIALYSIS X 16 YEARS FAILED RENAL TRANSPLANT CMP COPD SEC HPT TIA PSH: RENAL TRANSPLANT AV FISTULA Review of Systems - Constitutional Constitutional: Fatigue, Fever, Weakness - EENT Eyes: Blurred Vision Ears: absent: As Per HPI, Decreased Hearing, Ear Discharge, Ear Pain, Tinnitus, Abnormal Hearing, Disequilibrium, Dizziness, Other Nose/Mouth/Throat: absent: As Per HPI, Epistaxis, Nasal Congestion, Nasal Discharge, Nasal Obstruction, Nasal Trauma, Nose Pain, Post Nasal Drip, Sinus Pain, Sinus Pressure, Bleeding Gums, Change in Voice, Dental Pain, Dry Mouth, Dysphagia, Halitosis, Hoarsness, Lip Swelling, Mouth Lesions, Mouth Pain, Odynophagia, Sore Throat, Throat Swelling, Tongue Swelling, Facial Pain, Neck Pain, Neck Mass, Other - Cardiovascular Cardiovascular: Dyspnea on Exertion, Lightheadedness - Respiratory Respiratory: Cough, Dyspnea on Exertion - Gastrointestinal Gastrointestinal: Nausea - Genitourinary Genitourinary: As Per HPI - Musculoskeletal Musculoskeletal: Muscle Cramps, Muscle Weakness, Myalgias - Neurological Neurological: Weakness Past Patient History - Infectious Disease Hx of Infectious Diseases: None - Past Medical History & Family History Past Medical History?: Yes - Past Social History Smoking Status: Former Smoker Chewing Tobacco Use: No Cigar Use: No Alcohol: None Drugs: Denies Home Situation {Lives}: [facility] - CARDIAC Hx Congestive Heart Failure: Yes Hx Hypertension: Yes - PULMONARY Hx Respiratory Disorders: No - NEUROLOGICAL Hx Transient Ischemic Attacks (TIA): Yes - HEENT Hx HEENT Problems: No - RENAL Hx Chronic Kidney Disease: Yes Type of Dialysis Access: R chest perma cath Date of Last Dialysis Treatment: 10/02/17 - ENDOCRINE/METABOLIC Hx Endocrine Disorders: No - HEMATOLOGICAL/ONCOLOGICAL Hx Blood Disorders: Yes - INTEGUMENTARY Hx Dermatological Problems: No - MUSCULOSKELETAL/RHEUMATOLOGICAL Hx Arthritis: Yes (OA) Hx Falls: Yes Hx Fractures: Yes (Current right leg fx, RUE, LLE) Hx Osteoporosis: Yes - GASTROINTESTINAL Hx Diverticulitis: Yes Hx Pancreatitis: Yes - GENITOURINARY/GYNECOLOGICAL Hx Genitourinary Disorders: No - PSYCHIATRIC Hx Anxiety: Yes Hx Substance Use: No - SURGICAL HISTORY Hx Cholecystectomy: Yes - ANESTHESIA Hx Anesthesia: Yes Hx Anesthesia Reactions: No Hx Malignant Hyperthermia: No Meds Allergies/Adverse Reactions: Allergies Allergy/AdvReac Type Severity Reaction Status Date / Time aspirin Allergy NAUSEA Verified 10/02/17 12:54 lactose Allergy NAUSEA Verified 10/02/17 12:54 - Medications Medications: Current Medications Ascorbic Acid (Vitamin C 500 Mg Tab) 1,500 mg PO DAILY [facility] Last Admin: 10/03/17 09:21 Dose: 1,500 mg Cinacalcet (Sensipar) 30 mg PO DAILY [facility] Last Admin: 10/03/17 09:21 Dose: 30 mg Heparin Sodium (Porcine) (Heparin) 5,000 units SC Q12 [facility] Last Admin: 10/03/17 09:21 Dose: 5,000 units Vancomycin/Sodium Chloride (Vancomycin 1 Gm/Ns 200 Ml) 1 gm in 200 mls @ 166.7 mls/hr IVPB TTS [facility] PRN Reason: Protocol Stop: 10/09/17 10:01 Metoprolol Succinate (Toprol Xl) 100 mg PO DAILY [facility] Last Admin: 10/03/17 09:20 Dose: 100 mg Oxycodone/Acetaminophen (Percocet 5/325 Mg Tab) 1 tab PO Q6H PRN PRN Reason: Pain, moderate (4-7) Stop: 10/05/17 21:59 Sertraline HCl (Zoloft) 50 mg PO BID [facility] Last Admin: 10/03/17 09:20 Dose: 50 mg Physical Exam - Constitutional Appears: No Acute Distress, Chronically Ill - Head Exam Head Exam: ATRAUMATIC, NORMAL INSPECTION - Eye Exam Eye Exam: EOMI, Normal appearance - Neck Exam Neck exam: Positive for: Normal Inspection. Negative for: Tenderness - Respiratory Exam Respiratory Exam: Rhonchi, NORMAL BREATHING PATTERN - Cardiovascular Exam Cardiovascular Exam: REGULAR RHYTHM, +S1 - GI/Abdominal Exam GI & Abdominal Exam: Soft. absent: Tenderness - Extremities Exam Extremities exam: Positive for: normal inspection, tenderness - Neurological Exam Neurological exam: Alert, CN II-XII Intact - Skin Skin Exam: Dry, Warm Results - Vital Signs Recent Vital Signs: Last Vital Signs Temp 97.8 F 10/03/17 09:00 Pulse 72 10/03/17 09:00 Resp 20 10/03/17 09:00 BP 128/68 10/03/17 09:00 Pulse Ox 95 10/03/17 09:00 - Labs Result Diagrams: 10/02/17 13:32 10/02/17 13:32 Labs: Laboratory Results - last 24 hr 10/02/17 10/02/17 10/02/17 13:32 13:32 13:32 WBC 8.8 RBC 3.16 L Hgb 9.9 L Hct 29.7 L MCV 94.0 D MCH 31.5 H MCHC 33.5 RDW 15.8 H Plt Count 214 MPV 8.2 Neut % (Auto) 58.4 Lymph % (Auto) 12.1 L [place] % (Auto) 20.8 H Eos % (Auto) 7.8 H Baso % (Auto) 0.9 Neut # (Auto) 5.2 Lymph # (Auto) 1.1 [place] # (Auto) 1.8 H Eos # (Auto) 0.7 Baso # (Auto) 0.1 Neutrophils % (Manual) 62 Lymphocytes % (Manual) 8 L Reactive Lymphs % 1 H Monocytes % (Manual) 18 H Eosinophils % (Manual) 11 H Platelet Estimate Normal Hypochromasia (manual) Slight Anisocytosis (manual) Slight PT 12.9 H INR 1.2 APTT 33 Sodium 134 Potassium 4.5 Chloride 87 L Carbon Dioxide 33 H Anion Gap 19 BUN 42 H Creatinine 4.5 H Est GFR ( Amer) 12 Est GFR (Non-Af Amer) 10 Random Glucose 101 Calcium 8.9 Total Bilirubin 0.9 AST 63 H D ALT 28 Alkaline Phosphatase 712 H Total Protein 7.7 Albumin 3.4 L Globulin 4.2 H Albumin/Globulin Ratio 0.8 L Assessment & Plan (1) Bacteremia due to Gram-positive bacteria Status: Acute (2) CHF (congestive heart failure) Status: Acute (3) ESRD (end stage renal disease) on dialysis Status: Acute (4) Bacteremia due to Gram-positive bacteria Status: Acute - Assessment and Plan (Free Text) Plan: IV vanco repeat cultures CXR dialysis with increased UF
--- NOTE | 2017-10-03 15:01 | CP.PCM.CON ---
History of Present Illness - History of Present Illness History of Present Illness: 66 y/o female with history of ESRD with dialysis (T, Keri, Sat) presents to ED sent by Dr. Yeboah for positive blood culture. Patient last received dialysis 2 days ago and reports chills for "couple of days". Patient denies chest pain, sob , fever, nausea, vomiting or any other complaints at this time. IV antibiotics in progress await cultures and sensitivities may need HD cath change after line holiday - Medical History PMH: Anxiety, Arthritis (OA), CHF, Diverticulitis, Fibromyalgia, Fractures ( Current right leg fx, RUE, LLE), HTN, Osteoporosis, Pancreatitis, End Stage Renal Disease, Chronic Kidney Disease, TIA Surgical History: Cholecystectomy - [facility] Procedures (04/28/17) BUNIONECT/SFT/OSTEOTOMY (06/04/13) DILATION OF L SUBCLAV VEIN WITH INTRALUM DEV, PERC APPROACH (08/02/17) IMMOBILIZATION OF LEFT LOWER LEG USING SPLINT (04/28/17) IMMOBILIZATION OF RIGHT UPPER EXTREMITY USING SPLINT (04/28/17) INSERT INFUSION DEV IN R INT JUGULAR VEIN, PERC (08/02/17) OPEN REDUCT-INT FIX TOE (06/04/13) REVISION OF INFUSION DEVICE IN UPPER ARTERY, OPEN APPROACH (08/02/17) ULTRASONOGRAPHY OF RIGHT JUGULAR VEINS, GUIDANCE (08/02/17) Review of Systems - Review of Systems All systems: reviewed and no additional remarkable complaints except - Constitutional Constitutional: As Per HPI - EENT Eyes: absent: As Per HPI, Blind Spots, Blurred Vision, Change in Vision, Decreased Night Vision, Diplopia, Discharge, Dry Eye, Exophthalmos, Floaters, Irritation, Itchy Eyes, Loss of Peripheral Vision, Pain, Photophobia, Requires Corrective Lenses, Sees Flashes, Spots in Vision, Tunnel Vision, Other Visual Disturbances, Loss of Vision, Other Ears: absent: As Per HPI, Decreased Hearing, Ear Discharge, Ear Pain, Tinnitus, Abnormal Hearing, Disequilibrium, Dizziness, Other Nose/Mouth/Throat: absent: As Per HPI, Epistaxis, Nasal Congestion, Nasal Discharge, Nasal Obstruction, Nasal Trauma, Nose Pain, Post Nasal Drip, Sinus Pain, Sinus Pressure, Bleeding Gums, Change in Voice, Dental Pain, Dry Mouth, Dysphagia, Halitosis, Hoarsness, Lip Swelling, Mouth Lesions, Mouth Pain, Odynophagia, Sore Throat, Throat Swelling, Tongue Swelling, Facial Pain, Neck Pain, Neck Mass, Other - Breasts Breasts: absent: As Per HPI, Change in Shape, Mass, Pain, Nipple Discharge, Nipple Inversion, Skin Changes, Swelling, Other - Cardiovascular Cardiovascular: As Per HPI - Respiratory Respiratory: As Per HPI, Cough, Dyspnea. absent: Hemoptysis - Gastrointestinal Gastrointestinal: absent: As Per HPI, Abdominal Pain, Belching, Bloating, Change in Bowel Habits, Change in Stool Character, Coffee Ground Emesis, Constipation, Cramping, Diarrhea, Dyspepsia, Dysphagia, Early Satiety, Excessive Flatus, Fecal Incontinence, Heartburn, Hematemesis, Hematochezia, Loose Stools, Melena, Nausea, Odynophagia, Temesmus, Vomiting, Other - Genitourinary Genitourinary: absent: As Per HPI, Change in Urinary Stream, Difficulty Urinating, Dysuria, Flank Pain, Hematuria, Pyuria, Nocturia, Urinary Incontinence, Urinary Frequency, Urinary Hesitance, Urinary Urgency, Voiding Freq/Small Amts, Freq UTI, Hx Renal/Bladder Calculi, Hx /Renal Surgery, Bladder Distension, Other - Reproductive: Female Reproductive:Female: absent: As Per HPI, Amenorrhea, Amenorrhea/ Control, Currently Menstual, Cycle <21 Days, Cycle >35 Days, Cycle Variable, Menses 1-7 Days, Menses >/= 8 Days, Menses Variable, Cycle > 4 Weeks Between, No Menses for 6 Months, Heavy Menses, Light Menses, Normal Menses, Spotting Between Cycles , S/P Hysterectomy, Menopausal, Post Menopausal, Premenarche, Abnormal Vaginal Bleeding, Dysmenorrhea, Dyspareunia, Genital Lesions, Genital Pruritis, Pelvic Pain, Prolapse Symptoms, Sexual Dysfunction, Vaginal Discharge, Vaginal Dryness , Vaginal Odor, Vaginal Pruritis, Other - Menstruation Menstruation: absent: As Per HPI, Amenorrhea, Amenorrhea/ Control, Currently Menstual, Cycle <21 Days, Cycle >35 Days, Cycle Variable, Menses 1-7 Days, Menses >/= 8 Days, Menses Variable, Cycle > 4 Weeks Between, No Menses for 6 Months, Heavy Menses, Light Menses, Normal Menses, Spotting Between Cycles , S/P Hysterectomy, Menopausal, Post Menopausal, Premenarche, Abnormal Vaginal Bleeding, Dysmenorrhea, Other - Musculoskeletal Musculoskeletal: absent: As Per HPI, Abnormal Gait, Arthralgias, Atrophy, Back Pain, Deformity, Joint Swelling, Limited Range of Motion, Loss of Height, Muscle Cramps, Muscle Weakness, Myalgias, Neck Pain, Numbness, Radiating Pain into Limb, Stiffness, Tingling, Other - Integumentary Integumentary: absent: As Per HPI, Acne, Alopecia, Bleeding Lesions, Change in Hair, Change in Nails, Change in Pigmentation, Changing Lesions, Dry Skin, Erythema, Furuncle, Hirsutism, Lesions, New Lesions, Non-Healing Lesions, Photosensitivity, Pruritus, Rash, Skin Pain, Skin Ulcer, Sores, Striae, Swelling , Unusual Bruising, Wounds, Jaundice, Other - Neurological Neurological: absent: As Per HPI, Abnormal Gait, Abnormal Hearing, Abnormal Movements, Abnormal Speech, Behavioral Changes, Burning Sensations, Confusion, Convulsions, Disequilibrium, Dizziness, Numbness, Focal Weakness, Frequent Falls , Headaches, Lack of Coordination, Loss of Vision, Memory Loss, Paresthesias, Radicular Pain, Restless Legs, Sensory Deficit, Syncope, Tingling, Tremor, Vertigo, Weakness, Other Visual Disturbances, Other - Psychiatric Psychiatric: absent: As Per HPI, Abnormal Sleep Pattern, Anhedonia, Anxiety, Auditory Hallucinations, Behavioral Changes, Change in Appetite, Change in Libido, Confusion, Depression, Difficulty Concentrating, Hallucinations, Homicidal Ideation, Hopelessness, Irritability, Memory Loss, Mood Swings, Panic Attacks, Paranoia, Suicidal Ideation, Visual Hallucinations, Tactile Hallucinations, Other - Endocrine Endocrine: absent: As Per HPI, Change in Body Appearance, Change in Libido, Cold Intolorance, Deepening of Voice, Excessive Sweating, Fatigue, Flushing, Heat Intolorance, Increase in Ring/Shoe/Hat Size, Palpitations, Polydipsia, Polyphagia, Polyuria, Other - Hematologic/Lymphatic Hematologic: absent: As Per HPI, Easy Bleeding, Easy Bruising, Lymphadenopathy, Other Past Patient History - Infectious Disease Hx of Infectious Diseases: None - Past Medical History & Family History Past Medical History?: Yes - Past Social History Smoking Status: Former Smoker Chewing Tobacco Use: No Cigar Use: No Alcohol: None Drugs: Denies Home Situation {Lives}: Group Home - CARDIAC Hx Congestive Heart Failure: Yes Hx Hypertension: Yes - PULMONARY Hx Respiratory Disorders: No - NEUROLOGICAL Hx Transient Ischemic Attacks (TIA): Yes - HEENT Hx HEENT Problems: No - RENAL Hx Chronic Kidney Disease: Yes Type of Dialysis Access: R chest perma cath Date of Last Dialysis Treatment: 10/02/17 - ENDOCRINE/METABOLIC Hx Endocrine Disorders: No - HEMATOLOGICAL/ONCOLOGICAL Hx Blood Disorders: Yes - INTEGUMENTARY Hx Dermatological Problems: No - MUSCULOSKELETAL/RHEUMATOLOGICAL Hx Arthritis: Yes (OA) Hx Falls: Yes Hx Fractures: Yes (Current right leg fx, RUE, LLE) Hx Osteoporosis: Yes - GASTROINTESTINAL Hx Diverticulitis: Yes Hx Pancreatitis: Yes - GENITOURINARY/GYNECOLOGICAL Hx Genitourinary Disorders: No - PSYCHIATRIC Hx Anxiety: Yes Hx Substance Use: No - SURGICAL HISTORY Hx Cholecystectomy: Yes - ANESTHESIA Hx Anesthesia: Yes Hx Anesthesia Reactions: No Hx Malignant Hyperthermia: No Meds Allergies/Adverse Reactions: Allergies Allergy/AdvReac Type Severity Reaction Status Date / Time aspirin Allergy NAUSEA Verified 10/02/17 12:54 lactose Allergy NAUSEA Verified 10/02/17 12:54 - Medications Medications: Current Medications Ascorbic Acid (Vitamin C 500 Mg Tab) 1,500 mg PO DAILY [facility] Last Admin: 10/03/17 09:21 Dose: 1,500 mg Cinacalcet (Sensipar) 30 mg PO DAILY [facility] Last Admin: 10/03/17 09:21 Dose: 30 mg Epoetin [place] (Procrit) 10,000 unit IV TTS [facility] Heparin Sodium (Porcine) (Heparin) 5,000 units SC Q12 [facility] Last Admin: 10/03/17 09:21 Dose: 5,000 units Vancomycin/Sodium Chloride (Vancomycin 1 Gm/Ns 200 Ml) 1 gm in 200 mls @ 166.7 mls/hr IVPB TTS MICHELE PRN Reason: Protocol Stop: 10/09/17 10:01 Metoprolol Succinate (Toprol Xl) 100 mg PO DAILY [facility] Last Admin: 10/03/17 09:20 Dose: 100 mg Oxycodone/Acetaminophen (Percocet 5/325 Mg Tab) 1 tab PO Q6H PRN PRN Reason: Pain, moderate (4-7) Stop: 10/05/17 21:59 Sertraline HCl (Zoloft) 50 mg PO BID [facility] Last Admin: 10/03/17 09:20 Dose: 50 mg Physical Exam - Constitutional Appears: Non-toxic, Chronically Ill - Head Exam Head Exam: NORMOCEPHALIC - Eye Exam Eye Exam: PERRL. absent: Scleral icterus - ENT Exam ENT Exam: Mucous Membranes Dry, Normal External Ear Exam - Neck Exam Neck exam: Negative for: Lymphadenopathy - Respiratory Exam Respiratory Exam: Decreased Breath Sounds, Prolonged Expiratory Phase, Rhonchi - Cardiovascular Exam Cardiovascular Exam: Tachycardia, REGULAR RHYTHM, +S1, +S2 - GI/Abdominal Exam GI & Abdominal Exam: Diminished Bowel Sounds, Distended, Soft. absent: Tenderness - Rectal Exam Rectal Exam: Deferred - Exam Exam: NORMAL INSPECTION - Extremities Exam Extremities exam: Positive for: pedal pulses present. Negative for: calf tenderness, pedal edema, tenderness - Back Exam Back exam: absent: CVA tenderness (L), CVA tenderness (R), paraspinal tenderness - Neurological Exam Neurological exam: Alert, CN II-XII Intact, Oriented x3, Reflexes Normal - Psychiatric Exam Psychiatric exam: Depressed - Skin Skin Exam: Dry Results - Vital Signs Recent Vital Signs: Last Vital Signs Temp 97.8 F 10/03/17 09:00 Pulse 72 10/03/17 09:00 Resp 20 10/03/17 09:00 BP 128/68 10/03/17 09:00 Pulse Ox 95 10/03/17 09:00 - Labs Result Diagrams: 10/02/17 13:32 10/02/17 13:32 Assessment & Plan (1) Bacteremia due to Gram-positive bacteria Status: Acute (2) CHF (congestive heart failure) Status: Acute (3) ESRD (end stage renal disease) on dialysis Status: Acute (4) Positive blood culture Status: Acute (5) Appendicitis Status: Acute (6) Bacteremia due to Gram-positive bacteria Status: Acute (7) CHF (congestive heart failure) Status: Acute (8) End stage renal disease Status: Acute - Assessment and Plan (Free Text) Assessment: cont iv antibiotics may need HD cath removal and ? SILAS has hx strep sepsis
--- NOTE | 2017-10-03 15:36 | RAD ---
HISTORY: COMPARISON: 08/03/2017. TECHNIQUE: Chest PA and lateral FINDINGS: LINES AND TUBES: The right PermCath terminates at the cavoatrial junction. There is stable appearance of left subclavian endovascular stent. LUNG AND PLEURA: There is moderate pulmonary venous congestion. HEART AND MEDIASTINUM: There is persistent severe cardiomegaly. Atherosclerotic aortic arch calcifications are present. The hilar and mediastinal contours are within normal limits. SKELETAL STRUCTURES: The bony structures are within normal limits for the patient's age. VISUALIZED UPPER ABDOMEN: Normal. OTHER FINDINGS: None. IMPRESSION: Right PermCath terminates at the cavoatrial junction. Persistent severe cardiomegaly and moderate pulmonary venous congestion.
[2017-10-04 06:45] LABS: ALB/GLOB RATIO 0.9 (1.0-2.1); ALBUMIN 3.3 g/dL (3.5-5.0); CALCIUM 7.5 mg/dl (8.6-10.4)
--- NOTE | 2017-10-04 10:12 | CP.PCM.PN ---
Subjective - Date & Time of Evaluation Date of Evaluation: 10/04/17 Time of Evaluation: 10:09 - Subjective Subjective: feels ok no SOB afebrile eating breakfast ROS- 10 point ROS negative Objective - Vital Signs/Intake and Output Vital Signs (last 24 hours): Temp Pulse Resp BP Pulse Ox 97.6 F 69 20 147/74 97 10/04/17 08:00 10/04/17 08:00 10/04/17 08:00 10/04/17 08:00 10/04/17 08:00 Intake and Output: 10/04/17 10/04/17 06:59 18:59 Intake Total 120 Balance 120 - Medications Medications: Current Medications Ascorbic Acid (Vitamin C 500 Mg Tab) 1,500 mg PO DAILY [facility] Last Admin: 10/03/17 09:21 Dose: 1,500 mg Cinacalcet (Sensipar) 30 mg PO DAILY [facility] Last Admin: 10/03/17 09:21 Dose: 30 mg Epoetin Santo (Procrit) 10,000 unit IV TTS [facility] Heparin Sodium (Porcine) (Heparin) 5,000 units SC Q12 [facility] Last Admin: 10/03/17 21:17 Dose: Not Given Vancomycin/Sodium Chloride (Vancomycin 1 Gm/Ns 200 Ml) 1 gm in 200 mls @ 166.7 mls/hr IVPB TTS [facility] PRN Reason: Protocol Stop: 10/09/17 10:01 Metoprolol Succinate (Toprol Xl) 100 mg PO DAILY [facility] Last Admin: 10/03/17 09:20 Dose: 100 mg Oxycodone/Acetaminophen (Percocet 5/325 Mg Tab) 1 tab PO Q6H PRN PRN Reason: Pain, moderate (4-7) Stop: 10/05/17 21:59 Sertraline HCl (Zoloft) 50 mg PO BID [facility] Last Admin: 10/03/17 17:54 Dose: 50 mg - Labs Labs: 10/02/17 13:32 10/04/17 06:17 PT 12.9 SECONDS (9.7-12.2) H 10/02/17 13:32 INR 1.2 10/02/17 13:32 APTT 33 SECONDS (21-34) 10/02/17 13:32 - Constitutional Appears: Well, Non-toxic - Head Exam Head Exam: ATRAUMATIC, NORMOCEPHALIC - Eye Exam Eye Exam: EOMI, PERRL - ENT Exam ENT Exam: Mucous Membranes Moist - Neck Exam Neck Exam: absent: Lymphadenopathy - Respiratory Exam Respiratory Exam: Clear to Ausculation Bilateral. absent: Accessory Muscle Use , Rhonchi, Wheezes - Cardiovascular Exam Cardiovascular Exam: REGULAR RHYTHM, +S1, +S2 - GI/Abdominal Exam GI & Abdominal Exam: Soft. absent: Tenderness - Extremities Exam Extremities Exam: absent: Joint Swelling, Pedal Edema - Neurological Exam Neurological Exam: Alert, Awake, Oriented x3 - Psychiatric Exam Psychiatric exam: Normal Affect, Normal Mood - Skin Skin Exam: Dry, Intact Assessment and Plan (1) Bacteremia due to Gram-positive bacteria Status: Acute (2) CHF (congestive heart failure) Status: Acute (3) ESRD (end stage renal disease) on dialysis Status: Acute (4) Anemia Status: Acute - Assessment and Plan (Free Text) Plan: Dialysis today vanco post HD blood cultures from 12th- no growth one day to try to use fistula
[2017-10-04] MEDS: Metoprolol Succinate 100 mg XL Tab PO SCH (10:14)
[2017-10-04] MEDS: Vancomycin 1 gm/NS 200 ml 1 GM/200 ML BAG IVPB SCH ×2 (13:37→18:00)
[2017-10-04] MEDS: Epoetin Alfa 10,000 unit/ml Dialysis IV SCH (14:58)
--- NOTE | 2017-10-05 06:41 | CP.PCM.CON ---
History of Present Illness - History of Present Illness History of Present Illness: Patient seen and evaluated SILAS requested for positive blood cultures SILAS Alda afternoon around 2pm NPO after MN except meds Past Patient History - Infectious Disease Hx of Infectious Diseases: None - Past Medical History & Family History Past Medical History?: Yes - Past Social History Smoking Status: Former Smoker Chewing Tobacco Use: No Cigar Use: No Alcohol: None Drugs: Denies Home Situation {Lives}: Long Term - CARDIAC Hx Congestive Heart Failure: Yes Hx Hypertension: Yes - PULMONARY Hx Respiratory Disorders: No - NEUROLOGICAL Hx Transient Ischemic Attacks (TIA): Yes - HEENT Hx HEENT Problems: No - RENAL Hx Chronic Kidney Disease: Yes Type of Dialysis Access: R chest perma cath Date of Last Dialysis Treatment: 10/02/17 - ENDOCRINE/METABOLIC Hx Endocrine Disorders: No - HEMATOLOGICAL/ONCOLOGICAL Hx Blood Disorders: Yes - INTEGUMENTARY Hx Dermatological Problems: No - MUSCULOSKELETAL/RHEUMATOLOGICAL Hx Arthritis: Yes (OA) - GASTROINTESTINAL Hx Diverticulitis: Yes Hx Pancreatitis: Yes - GENITOURINARY/GYNECOLOGICAL Hx Genitourinary Disorders: No - PSYCHIATRIC Hx Anxiety: Yes Hx Substance Use: No - SURGICAL HISTORY Hx Cholecystectomy: Yes - ANESTHESIA Hx Anesthesia: Yes Hx Anesthesia Reactions: No Hx Malignant Hyperthermia: No Meds Allergies/Adverse Reactions: Allergies Allergy/AdvReac Type Severity Reaction Status Date / Time aspirin Allergy NAUSEA Verified 10/02/17 12:54 lactose Allergy NAUSEA Verified 10/02/17 12:54 - Medications Medications: Current Medications Ascorbic Acid (Vitamin C 500 Mg Tab) 1,500 mg PO DAILY [facility] Last Admin: 10/04/17 10:09 Dose: 1,500 mg Cinacalcet (Sensipar) 30 mg PO DAILY [facility] Last Admin: 10/04/17 10:10 Dose: 30 mg Epoetin Santo (Procrit) 10,000 unit IV TTS [facility] Last Admin: 10/04/17 14:58 Dose: 10,000 unit Heparin Sodium (Porcine) (Heparin) 5,000 units SC Q12 [facility] Last Admin: 10/04/17 22:02 Dose: Not Given Vancomycin/Sodium Chloride (Vancomycin 1 Gm/Ns 200 Ml) 1 gm in 200 mls @ 166.7 mls/hr IVPB TTS [facility] PRN Reason: Protocol Stop: 10/09/17 10:01 Last Admin: 10/04/17 18:00 Dose: 166.7 mls/hr Metoprolol Succinate (Toprol Xl) 100 mg PO DAILY [facility] Last Admin: 10/04/17 10:14 Dose: Not Given Oxycodone/Acetaminophen (Percocet 5/325 Mg Tab) 1 tab PO Q6H PRN PRN Reason: Pain, moderate (4-7) Stop: 10/05/17 21:59 Sertraline HCl (Zoloft) 50 mg PO BID [facility] Last Admin: 10/04/17 18:00 Dose: 50 mg Results - Vital Signs Recent Vital Signs: Last Vital Signs Temp 98.4 F 10/05/17 00:00 Pulse 76 10/05/17 00:00 Resp 20 10/05/17 00:00 BP 124/58 L 10/05/17 00:00 Pulse Ox 99 10/05/17 00:00 - Labs Result Diagrams: 10/02/17 13:32 10/04/17 06:17 Labs: Laboratory Results - last 24 hr 10/04/17 06:17 Sodium 135 Potassium 4.7 Chloride 94 L Carbon Dioxide 26 Anion Gap 19 BUN 33 H Creatinine 4.0 H Est GFR ( Amer) 14 Est GFR (Non-Af Amer) 11 Random Glucose 77 Calcium 7.5 L Phosphorus 3.3 Total Bilirubin 0.8 AST 50 H D ALT 15 Alkaline Phosphatase 662 H Total Protein 7.2 Albumin 3.3 L Globulin 3.8 Albumin/Globulin Ratio 0.9 L
[2017-10-05 08:01] LABS: ALB/GLOB RATIO 0.8 (1.0-2.1); ALBUMIN 3.4 g/dL (3.5-5.0)
[2017-10-05 08:11] LABS: BASO # 0.1 K/uL (0.0-0.2); BASO % 1.1 % (0.0-2.0); EOS # 0.6 K/uL (0.0-0.7); EOS % 8.1 % (0.0-4.0); HEMOGLOBIN 10.7 g/dL (11.0-16.0); LYMPH # 1.9 K/uL (1.0-4.3); MEAN CELL VOLUME 94.6 fL (81.0-99.0); MEAN CORPUSCULAR HEMOGLOBIN 31.5 pg (27.0-31.0); MEAN CORPUSCULAR HGB CONC 33.3 g/dL (33.0-37.0); MEAN PLATELET VOLUME 8.1 fL (7.2-11.7); MONO # 1.2 K/uL (0.0-0.8); MONO % 16.1 % (0.0-10.0); NEUT # 3.7 K/uL (1.8-7.0); NEUT % 49.7 % (50.0-75.0); NRBC % 0.3 % (0.0-2.0); RBC 3.39 Mil/uL (3.80-5.20); RED CELL DISTRIBUTION WIDTH 16.1 % (11.5-14.5); WHITE BLOOD COUNT 7.5 K/uL (4.8-10.8)
[2017-10-05] MEDS: Metoprolol Succinate 100 mg XL Tab PO SCH (09:55)
[2017-10-05] MEDS: Oxycodone/Acetaminophen 5/325 mg Tab PO PRN ×3 (09:59→22:09)
--- NOTE | 2017-10-05 18:18 | CP.PCM.PN ---
Subjective - Date & Time of Evaluation Date of Evaluation: 10/05/17 Time of Evaluation: 08:00 - Subjective Subjective: SILAS requested for positive blood cultures SILAS Alda afternoon around 2pm on IV Vanco post HD Objective - Vital Signs/Intake and Output Vital Signs (last 24 hours): Temp Pulse Resp BP Pulse Ox 97.3 F L 69 20 138/69 99 10/05/17 15:00 10/05/17 15:00 10/05/17 15:00 10/05/17 15:00 10/05/17 15:00 Intake and Output: 10/05/17 10/05/17 06:59 18:59 Intake Total 500 600 Output Total 0 Balance 500 600 - Medications Medications: Current Medications Ascorbic Acid (Vitamin C 500 Mg Tab) 1,500 mg PO DAILY [facility] Last Admin: 10/05/17 09:55 Dose: 1,500 mg Cinacalcet (Sensipar) 30 mg PO DAILY [facility] Last Admin: 10/05/17 09:55 Dose: 30 mg Epoetin Santo (Procrit) 10,000 unit IV TTS [facility] Last Admin: 10/04/17 14:58 Dose: 10,000 unit Heparin Sodium (Porcine) (Heparin) 5,000 units SC Q12 [facility] Last Admin: 10/05/17 09:55 Dose: 5,000 units Vancomycin/Sodium Chloride (Vancomycin 1 Gm/Ns 200 Ml) 1 gm in 200 mls @ 166.7 mls/hr IVPB TTS [facility] PRN Reason: Protocol Stop: 10/09/17 10:01 Last Admin: 10/04/17 18:00 Dose: 166.7 mls/hr Metoprolol Succinate (Toprol Xl) 100 mg PO DAILY [facility] Last Admin: 10/05/17 09:55 Dose: 100 mg Oxycodone/Acetaminophen (Percocet 5/325 Mg Tab) 1 tab PO Q6H PRN PRN Reason: Pain, moderate (4-7) Stop: 10/05/17 21:59 Last Admin: 10/05/17 16:10 Dose: 1 tab Sertraline HCl (Zoloft) 50 mg PO BID [facility] Last Admin: 10/05/17 17:35 Dose: 50 mg - Labs Labs: 10/05/17 07:26 10/05/17 07:26 PT 12.9 SECONDS (9.7-12.2) H 10/02/17 13:32 INR 1.2 10/02/17 13:32 APTT 33 SECONDS (21-34) 10/02/17 13:32 - Constitutional Appears: Non-toxic, Chronically Ill - Head Exam Head Exam: NORMOCEPHALIC - Eye Exam Eye Exam: PERRL - ENT Exam ENT Exam: Mucous Membranes Dry, Normal External Ear Exam - Neck Exam Neck Exam: absent: Lymphadenopathy - Respiratory Exam Respiratory Exam: Decreased Breath Sounds, Clear to Ausculation Bilateral - Cardiovascular Exam Cardiovascular Exam: REGULAR RHYTHM - GI/Abdominal Exam GI & Abdominal Exam: Distended, Soft Assessment and Plan (1) Bacteremia due to Gram-positive bacteria Status: Acute (2) CHF (congestive heart failure) Status: Acute (3) ESRD (end stage renal disease) on dialysis Status: Acute (4) Positive blood culture Status: Acute (5) Appendicitis Status: Acute (6) Bacteremia due to Gram-positive bacteria Status: Acute (7) CHF (congestive heart failure) Status: Acute (8) End stage renal disease Status: Acute - Assessment and Plan (Free Text) Assessment: cont iv rx for SILAS
--- NOTE | 2017-10-05 23:05 | CP.PCM.PN ---
Subjective - Date & Time of Evaluation Date of Evaluation: 10/05/17 Time of Evaluation: 17:30 - Subjective Subjective: Patient seen and evaluated For SILAS tomorrow Orders written Objective - Vital Signs/Intake and Output Vital Signs (last 24 hours): Temp Pulse Resp BP Pulse Ox 97.3 F L 69 20 138/69 99 10/05/17 15:00 10/05/17 15:00 10/05/17 15:00 10/05/17 15:00 10/05/17 15:00 Intake and Output: 10/05/17 10/06/17 18:59 06:59 Intake Total 600 400 Output Total 0 Balance 600 400 - Medications Medications: Current Medications Ascorbic Acid (Vitamin C 500 Mg Tab) 1,500 mg PO DAILY [facility] Last Admin: 10/05/17 09:55 Dose: 1,500 mg Cinacalcet (Sensipar) 30 mg PO DAILY [facility] Last Admin: 10/05/17 09:55 Dose: 30 mg Epoetin Santo (Procrit) 10,000 unit IV TTS [facility] Last Admin: 10/04/17 14:58 Dose: 10,000 unit Vancomycin/Sodium Chloride (Vancomycin 1 Gm/Ns 200 Ml) 1 gm in 200 mls @ 166.7 mls/hr IVPB TTS [facility] PRN Reason: Protocol Stop: 10/09/17 10:01 Last Admin: 10/04/17 18:00 Dose: 166.7 mls/hr Metoprolol Succinate (Toprol Xl) 100 mg PO DAILY [facility] Last Admin: 10/05/17 09:55 Dose: 100 mg Oxycodone/Acetaminophen (Percocet 5/325 Mg Tab) 1 tab PO Q6H PRN PRN Reason: Pain, moderate (4-7) Stop: 10/08/17 21:56 Last Admin: 10/05/17 22:09 Dose: 1 tab Sertraline HCl (Zoloft) 50 mg PO BID [facility] Last Admin: 10/05/17 17:35 Dose: 50 mg - Labs Labs: 10/05/17 07:26 10/05/17 07:26 PT 12.9 SECONDS (9.7-12.2) H 10/02/17 13:32 INR 1.2 10/02/17 13:32 APTT 33 SECONDS (21-34) 10/02/17 13:32
[2017-10-06 07:47] LABS: BASO # 0.1 K/uL (0.0-0.2); BASO % 0.7 % (0.0-2.0); EOS # 0.7 K/uL (0.0-0.7); EOS % 8.6 % (0.0-4.0); HEMOGLOBIN 9.9 g/dL (11.0-16.0); LYMPH # 1.6 K/uL (1.0-4.3); LYMPH % 18.8 % (20.0-40.0); MEAN CELL VOLUME 94.6 fL (81.0-99.0); MEAN CORPUSCULAR HEMOGLOBIN 31.7 pg (27.0-31.0); MEAN CORPUSCULAR HGB CONC 33.5 g/dL (33.0-37.0); MEAN PLATELET VOLUME 7.7 fL (7.2-11.7); MONO # 1.6 K/uL (0.0-0.8); MONO % 18.6 % (0.0-10.0); NEUT # 4.5 K/uL (1.8-7.0); NEUT % 53.3 % (50.0-75.0); NRBC % 0.2 % (0.0-2.0); RBC 3.14 Mil/uL (3.80-5.20); RED CELL DISTRIBUTION WIDTH 16.1 % (11.5-14.5); WHITE BLOOD COUNT 8.5 K/uL (4.8-10.8)
[2017-10-06 07:50] LABS: INR 1.2; PROTHROMBIN TIME 13.9 SECONDS (9.7-12.2)
[2017-10-06 08:07] LABS: ALB/GLOB RATIO 0.8 (1.0-2.1); ALBUMIN 3.2 g/dL (3.5-5.0); CALCIUM 7.7 mg/dl (8.6-10.4)
--- NOTE | 2017-10-06 08:14 | CP.PCM.PN ---
Subjective - Date & Time of Evaluation Date of Evaluation: 10/06/17 Time of Evaluation: 09:11 - Subjective Subjective: PGY 2 Med Note- Dr. Ureña's service Patient seen and examined . Vitals being obtained at the time by director community health nursing. Patient stable. Patient with complaints of chronic leg pain. Patient had a cream applied to legs. Patient tired at the moment.Patient for SILAS today. Objective - Vital Signs/Intake and Output Vital Signs (last 24 hours): Temp Pulse Resp BP Pulse Ox 98.7 F 68 20 145/68 98 10/06/17 00:00 10/06/17 00:00 10/06/17 00:00 10/06/17 00:00 10/06/17 00:00 Intake and Output: 10/06/17 10/06/17 06:59 18:59 Intake Total 400 Balance 400 - Medications Medications: Current Medications Ascorbic Acid (Vitamin C 500 Mg Tab) 1,500 mg PO DAILY [facility] Last Admin: 10/05/17 09:55 Dose: 1,500 mg Cinacalcet (Sensipar) 30 mg PO DAILY [facility] Last Admin: 10/05/17 09:55 Dose: 30 mg Epoetin Santo (Procrit) 10,000 unit IV TTS [facility] Last Admin: 10/04/17 14:58 Dose: 10,000 unit Vancomycin/Sodium Chloride (Vancomycin 1 Gm/Ns 200 Ml) 1 gm in 200 mls @ 166.7 mls/hr IVPB TTS [facility] PRN Reason: Protocol Stop: 10/09/17 10:01 Last Admin: 10/04/17 18:00 Dose: 166.7 mls/hr Metoprolol Succinate (Toprol Xl) 100 mg PO DAILY [facility] Last Admin: 10/05/17 09:55 Dose: 100 mg Oxycodone/Acetaminophen (Percocet 5/325 Mg Tab) 1 tab PO Q6H PRN PRN Reason: Pain, moderate (4-7) Stop: 10/08/17 21:56 Last Admin: 10/05/17 22:09 Dose: 1 tab Sertraline HCl (Zoloft) 50 mg PO BID [facility] Last Admin: 10/05/17 17:35 Dose: 50 mg - Labs Labs: 10/06/17 07:41 10/06/17 07:41 PT 13.9 SECONDS (9.7-12.2) H 10/06/17 07:41 INR 1.2 10/06/17 07:41 APTT 33 SECONDS (21-34) 10/02/17 13:32 - Constitutional Appears: Non-toxic, No Acute Distress - Head Exam Head Exam: ATRAUMATIC - Eye Exam Eye Exam: EOMI - ENT Exam ENT Exam: Mucous Membranes Moist - Neck Exam Neck Exam: Full ROM - Cardiovascular Exam Cardiovascular Exam: +S1, +S2 - GI/Abdominal Exam GI & Abdominal Exam: Soft - Extremities Exam Extremities Exam: Full ROM Additional comments: left leg bowing noted - Back Exam Back Exam: Full ROM - Neurological Exam Neurological Exam: Alert, Awake, Oriented x3 - Psychiatric Exam Psychiatric exam: Normal Affect - Skin Skin Exam: Dry, Normal Color Assessment and Plan - Assessment and Plan (Free Text) Assessment: Bacteremia Blood Cultures from 10/02 negative to date F/U Blood cultures F/U SILAS Echo Dr. Stallworth, Mac Developer on the case- F/U recommendations On Vancomycin during dialysis On Florastor ESRD (end stage renal disease) on dialysis on , Th, Sat On Sensipar and Epo Nephrology on the case. F/U recommendations Need to assess whether dialysis catheter is involved HTN Metoprolol daily Continue to monitor Leg Pain Physical Therapy recommendations for CARLOS ENRIQUE Continue PT while in house Prophylactic Measure Hep SC Q12 SCDs GI PPx not currently indicated Discussed with attending. All planning and management per Dr. Ureña.
--- NOTE | 2017-10-06 09:34 | HP ---
HISTORY OF PRESENT ILLNESS: A 66-year-old female with history of chronic hematuria, on hemodialysis, admitted to the hospital with current positive blood culture. The patient has history of pneumonia in the past, receives antibiotics. The patient discharged from day care, to come back with positive blood culture. PHYSICAL EXAMINATION: GENERAL: The patient is awake, alert, and oriented. VITAL SIGNS: Temperature 98, pulse 90. HEENT: Within normal limits. NECK: Supple. CHEST: Symmetrical. HEART: Regular. ABDOMEN: Soft. EXTREMITIES: No edema. IMPRESSION: The patient suffers from renal failure and sepsis. The patient is in bedrest, antibiotics, IV fluids. Lyle Ureña MD
--- NOTE | 2017-10-06 09:38 | PN ---
DATE: 10/05/2017 The patient on supportive care, antibiotic. Lyle Ureña MD [facility] # [id number]
[2017-10-06] MEDS: Metoprolol Succinate 100 mg XL Tab PO SCH ×2 (09:51→09:59)
--- NOTE | 2017-10-06 14:24 | CP.PCM.PN ---
Subjective - Date & Time of Evaluation Date of Evaluation: 10/06/17 Time of Evaluation: 14:21 - Subjective Subjective: awaiting SILAS s/p dialysis 10/04- stable rx on IV vanco- in-hospital cultures neg afebrile while in hospital Objective - Vital Signs/Intake and Output Vital Signs (last 24 hours): Temp Pulse Resp BP Pulse Ox 97.7 F 65 20 145/56 L 99 10/06/17 07:00 10/06/17 07:00 10/06/17 07:00 10/06/17 07:00 10/06/17 07:00 Intake and Output: 10/06/17 10/06/17 06:59 18:59 Intake Total 400 Balance 400 - Medications Medications: Current Medications Ascorbic Acid (Vitamin C 500 Mg Tab) 1,500 mg PO DAILY [facility] Last Admin: 10/06/17 10:00 Dose: Not Given Cinacalcet (Sensipar) 30 mg PO DAILY [facility] Last Admin: 10/06/17 09:59 Dose: Not Given Epoetin Santo (Procrit) 10,000 unit IV TTS [facility] Last Admin: 10/04/17 14:58 Dose: 10,000 unit Heparin Sodium (Porcine) (Heparin) 5,000 units SC Q12 [facility] Last Admin: 10/06/17 10:11 Dose: Not Given Vancomycin/Sodium Chloride (Vancomycin 1 Gm/Ns 200 Ml) 1 gm in 200 mls @ 166.7 mls/hr IVPB TTS [facility] PRN Reason: Protocol Stop: 10/09/17 10:01 Last Admin: 10/04/17 18:00 Dose: 166.7 mls/hr Metoprolol Succinate (Toprol Xl) 100 mg PO DAILY [facility] Last Admin: 10/06/17 09:59 Dose: Not Given Oxycodone/Acetaminophen (Percocet 5/325 Mg Tab) 1 tab PO Q6H PRN PRN Reason: Pain, moderate (4-7) Stop: 10/08/17 21:56 Last Admin: 10/05/17 22:09 Dose: 1 tab Sertraline HCl (Zoloft) 50 mg PO BID [facility] Last Admin: 10/06/17 10:00 Dose: Not Given - Labs Labs: 10/06/17 07:41 10/06/17 07:41 PT 13.9 SECONDS (9.7-12.2) H 10/06/17 07:41 INR 1.2 10/06/17 07:41 APTT 33 SECONDS (21-34) 10/02/17 13:32 - Head Exam Head Exam: ATRAUMATIC, NORMAL INSPECTION - Eye Exam Eye Exam: EOMI, Normal appearance - Neck Exam Neck Exam: Normal Inspection. absent: Tenderness - Respiratory Exam Respiratory Exam: Clear to Ausculation Bilateral, NORMAL BREATHING PATTERN - Cardiovascular Exam Cardiovascular Exam: REGULAR RHYTHM, +S1 - GI/Abdominal Exam GI & Abdominal Exam: Soft. absent: Tenderness - Extremities Exam Extremities Exam: Normal Inspection. absent: Tenderness - Neurological Exam Neurological Exam: Awake, CN II-XII Intact - Skin Skin Exam: Dry, Warm Assessment and Plan (1) Bacteremia due to Gram-positive bacteria Status: Acute (2) CHF (congestive heart failure) Status: Acute (3) ESRD (end stage renal disease) on dialysis Status: Acute (4) Bacteremia due to Gram-positive bacteria Status: Acute - Assessment and Plan (Free Text) Plan: SILAS Dialysis TTS IV vanco
[2017-10-06] MEDS: Saccharomyces Boulardi 250 mg Cap PO SCH (18:07)
[2017-10-06] MEDS: Oxycodone/Acetaminophen 5/325 mg Tab PO PRN (18:11)
--- NOTE | 2017-10-06 22:31 | CP.PCM.PN ---
Subjective - Date & Time of Evaluation Date of Evaluation: 10/06/17 Time of Evaluation: 15:40 - Subjective Subjective: Patient seen and evaluated SILAS postponed due to technical and scheduling issues Physical Examination - Constitutional Appears: Non-toxic, No Acute Distress - Head Exam Head Exam: ATRAUMATIC - Eye Exam Eye Exam: EOMI - ENT Exam ENT Exam: Mucous Membranes Moist - Neck Exam Neck Exam: Full ROM - Cardiovascular Exam Cardiovascular Exam: +S1, +S2 - GI/Abdominal Exam GI & Abdominal Exam: Soft - Extremities Exam Extremities Exam: Full ROM Additional comments: left leg bowing noted - Back Exam Back Exam: Full ROM - Neurological Exam Neurological Exam: Alert, Awake, Oriented x3 - Psychiatric Exam Psychiatric exam: Normal Affect - Skin Skin Exam: Dry, Normal Color Objective - Vital Signs/Intake and Output Vital Signs (last 24 hours): Temp Pulse Resp BP Pulse Ox 97.7 F 65 20 145/56 L 99 10/06/17 07:00 10/06/17 07:00 10/06/17 07:00 10/06/17 07:00 10/06/17 07:00 Intake and Output: 10/06/17 10/07/17 18:59 06:59 Intake Total 0 Balance 0 - Medications Medications: Current Medications Ascorbic Acid (Vitamin C 500 Mg Tab) 1,500 mg PO DAILY [facility] Last Admin: 10/06/17 10:00 Dose: Not Given Cinacalcet (Sensipar) 30 mg PO DAILY [facility] Last Admin: 10/06/17 09:59 Dose: Not Given Epoetin Santo (Procrit) 10,000 unit IV TTS [facility] Last Admin: 10/04/17 14:58 Dose: 10,000 unit Heparin Sodium (Porcine) (Heparin) 5,000 units SC Q12 [facility] Last Admin: 10/06/17 21:22 Dose: 5,000 units Vancomycin/Sodium Chloride (Vancomycin 1 Gm/Ns 200 Ml) 1 gm in 200 mls @ 166.7 mls/hr IVPB TTS [facility] PRN Reason: Protocol Stop: 10/09/17 10:01 Last Admin: 10/04/17 18:00 Dose: 166.7 mls/hr Metoprolol Succinate (Toprol Xl) 100 mg PO DAILY [facility] Last Admin: 10/06/17 09:59 Dose: Not Given Oxycodone/Acetaminophen (Percocet 5/325 Mg Tab) 1 tab PO Q6H PRN PRN Reason: Pain, moderate (4-7) Stop: 10/08/17 21:56 Last Admin: 10/06/17 18:11 Dose: 1 tab Saccharomyces Boulardii (Florastor) 250 mg PO BID [facility] Last Admin: 10/06/17 18:07 Dose: 250 mg Sertraline HCl (Zoloft) 50 mg PO BID [facility] Last Admin: 10/06/17 18:07 Dose: 50 mg - Labs Labs: 10/06/17 07:41 10/06/17 07:41 PT 13.9 SECONDS (9.7-12.2) H 10/06/17 07:41 INR 1.2 10/06/17 07:41 APTT 33 SECONDS (21-34) 10/02/17 13:32 Assessment and Plan - Assessment and Plan (Free Text) Assessment: Bacteremia Blood Cultures from 10/02 negative to date F/U Blood cultures For SILAS Echo On Vancomycin during dialysis On Florastor ESRD (end stage renal disease) on dialysis on , , Sat On Sensipar and Epo Nephrology on the case. F/U recommendations Need to assess whether dialysis catheter is involved HTN Metoprolol daily Continue to monitor Leg Pain Physical Therapy recommendations for CARLOS ENRIQUE Continue PT while in house Prophylactic Measure Hep SC Q12 SCDs GI PPx not currently indicated
--- NOTE | 2017-10-07 00:28 | CARD ---
APPROVED REPORT EXAM: Two-dimensional and M-mode echocardiogram with Doppler and color Doppler. Other Information Quality : GoodRhythm : INDICATION Infection:Rule out subacute bacterial endocarditis ESRD,DIALYSIS RISK FACTORS Hypertension 2D DIMENSIONS IVSd1.0 (0.7-1.1cm)LVDd4.5 (3.9-5.9cm) PWd0.8 (0.7-1.1cm)LVDs3.7 (2.5-4.0cm) FS (%) 17.4 % M-Mode DIMENSIONS RVDd3.67 (2.1-3.2cm)Left Atrium (MM)4.41 (2.5-4.0cm) IVSd0.94 (0.7-1.1cm)Aortic Root2.69 (2.2-3.7cm) LVDd4.57 (4.0-5.6cm)Aortic Cusp Exc.1.69 (1.5-2.0cm) PWd0.94 (0.7-1.1cm)FS (%) 32 % LVDs3.12 (2.0-3.8cm)LVEF (%)45 (>50%) Mitral Valve MV E Pospdooe956.6cm/sMV A Iqcdeozv13.7cm/sE/A ratio2.0 TDI E/Lateral E'0.0E/Medial E'0.0 Tricuspid Valve TR Peak [id number]/sTR Peak Gr.[id number] LEFT VENTRICLE The left ventricle is normal size. There is borderline concentric left ventricular hypertrophy. Left ventricle systolic function is mildly impaired. The Ejection Fraction is 45-50%. There is a flattened septum consistent with right ventricle volume overload. Transmitral Doppler flow pattern is Grade II-pseudonormal filling dynamics. There is no ventricular septal defect visualized. RIGHT VENTRICLE The right ventricle is mildly dilated. The right ventricle is mildly hypertrophied. The right ventricular systolic function is normal. ATRIA The left atrium is moderately dilated. The right atrium is moderately dilated. AORTIC VALVE The aortic valve is moderately sclerotic. The aortic valve is tri-cuspid. No aortic regurgitation is present. There is no aortic valvular stenosis. Cannot exclude aortic valvular vegetation. SILAS is more specific to R/O vegetations. MITRAL VALVE The mitral valve is normal in structure. There is no evidence of mitral valve prolapse. Mitral regurgitation is trace. TRICUSPID VALVE The tricuspid valve is normal in structure. There is moderate to severe tricuspid regurgitation. Right ventricular systolic pressure is estimated at 50-60 mmHg. There is moderate-severe pulmonary hypertension. PULMONIC VALVE The pulmonic valve is not well visualized. There is trace pulmonic valvular regurgitation. GREAT VESSELS The aortic root is normal in size. The ascending aorta is normal in size. The IVC is normal in size and collapses >50% with inspiration. PERICARDIAL EFFUSION There is no pericardial effusion. <Conclusion> There is borderline concentric left ventricular hypertrophy. Left ventricle systolic function is mildly impaired. The Ejection Fraction is 45-50%. Transmitral Doppler flow pattern is Grade II-pseudonormal filling dynamics. Cannot exclude aortic valvular vegetation. SILAS is more specific to R/O vegetations. There is moderate-severe pulmonary hypertension. Mitral regurgitation is trace.
[2017-10-07 06:47] LABS: BASO # 0.1 K/uL (0.0-0.2); EOS # 0.7 K/uL (0.0-0.7); EOS % 7.3 % (0.0-4.0); LYMPH # 1.7 K/uL (1.0-4.3); LYMPH % 18.4 % (20.0-40.0); MEAN CELL VOLUME 94.7 fL (81.0-99.0); MEAN CORPUSCULAR HEMOGLOBIN 31.2 pg (27.0-31.0); MEAN CORPUSCULAR HGB CONC 32.9 g/dL (33.0-37.0); MEAN PLATELET VOLUME 7.6 fL (7.2-11.7); MONO # 1.5 K/uL (0.0-0.8); MONO % 16.4 % (0.0-10.0); NEUT # 5.1 K/uL (1.8-7.0); NEUT % 56.9 % (50.0-75.0); NRBC % 0.1 % (0.0-2.0); RBC 3.2 Mil/uL (3.80-5.20); RED CELL DISTRIBUTION WIDTH 16.3 % (11.5-14.5)
[2017-10-07] MEDS: Saccharomyces Boulardi 250 mg Cap PO SCH ×3 (08:41→18:08)
[2017-10-07] MEDS: Oxycodone/Acetaminophen 5/325 mg Tab PO PRN ×3 (08:41→21:26)
[2017-10-07 08:44] LABS: ALB/GLOB RATIO 0.8 (1.0-2.1); ALBUMIN 3.2 g/dL (3.5-5.0)
--- NOTE | 2017-10-07 09:44 | CP.PCM.PN ---
Subjective - Date & Time of Evaluation Date of Evaluation: 10/07/17 Time of Evaluation: 09:02 - Subjective Subjective: PGY 2 Med Note- Dr. Ureña's service Patient seen and examined in no apparent acute distress. Patient states that her leg and arm had been hurting. A family friend brought in a leg brace which has helped her symptoms. Patient states that she was following up with an orthopedic doctor outpatient. Patient denies subjective fevers or chills, nausea , vomiting, diarrhea or constipation at this time. Objective - Vital Signs/Intake and Output Vital Signs (last 24 hours): Temp Pulse Resp BP Pulse Ox 97.9 F 75 20 131/70 100 10/07/17 07:00 10/07/17 07:00 10/07/17 07:00 10/07/17 07:00 10/07/17 07:00 - Medications Medications: Current Medications Ascorbic Acid (Vitamin C 500 Mg Tab) 1,500 mg PO DAILY [facility] Last Admin: 10/07/17 08:49 Dose: 1,500 mg Cinacalcet (Sensipar) 30 mg PO DAILY [facility] Last Admin: 10/07/17 08:51 Dose: 30 mg Epoetin Santo (Procrit) 10,000 unit IV TTS [facility] Last Admin: 10/04/17 14:58 Dose: 10,000 unit Heparin Sodium (Porcine) (Heparin) 5,000 units SC Q12 [facility] Last Admin: 10/07/17 08:41 Dose: 5,000 units Vancomycin/Sodium Chloride (Vancomycin 1 Gm/Ns 200 Ml) 1 gm in 200 mls @ 166.7 mls/hr IVPB TTS [facility] PRN Reason: Protocol Stop: 10/09/17 10:01 Last Admin: 10/04/17 18:00 Dose: 166.7 mls/hr Metoprolol Succinate (Toprol Xl) 100 mg PO DAILY [facility] Last Admin: 10/06/17 09:59 Dose: Not Given Oxycodone/Acetaminophen (Percocet 5/325 Mg Tab) 1 tab PO Q6H PRN PRN Reason: Pain, moderate (4-7) Stop: 10/08/17 21:56 Last Admin: 10/07/17 08:41 Dose: 1 tab Saccharomyces Boulardii (Florastor) 250 mg PO BID [facility] Last Admin: 10/07/17 08:41 Dose: 250 mg Sertraline HCl (Zoloft) 50 mg PO BID [facility] Last Admin: 10/07/17 08:41 Dose: 50 mg - Labs Labs: 10/07/17 06:38 10/07/17 06:38 PT 13.9 SECONDS (9.7-12.2) H 10/06/17 07:41 INR 1.2 10/06/17 07:41 APTT 33 SECONDS (21-34) 10/02/17 13:32 - Constitutional Appears: Non-toxic, No Acute Distress - Head Exam Head Exam: ATRAUMATIC, NORMAL INSPECTION - Eye Exam Eye Exam: EOMI, Normal appearance - ENT Exam ENT Exam: Mucous Membranes Moist - Respiratory Exam Respiratory Exam: NORMAL BREATHING PATTERN - Cardiovascular Exam Cardiovascular Exam: +S1 - GI/Abdominal Exam GI & Abdominal Exam: Soft, Normal Bowel Sounds - Extremities Exam Extremities Exam: Normal Capillary Refill, Tenderness Additional comments: bowing of left leg, soft cusion brace noted - Back Exam Back Exam: NORMAL INSPECTION - Neurological Exam Neurological Exam: Alert, Awake, Oriented x3 - Psychiatric Exam Psychiatric exam: Normal Affect, Normal Mood - Skin Skin Exam: Dry, Warm Assessment and Plan - Assessment and Plan (Free Text) Assessment: Bacteremia Blood Cultures from 10/02 negative to date after four days F/U Blood cultures F/U SILAS Echo. Had to be rescheduled. Will follow up on date. Dr. Stallworth, Leadership Program Internship on the case- F/U recommendations On Vancomycin during dialysis On Florastor ESRD (end stage renal disease) on dialysis on T, Th, Sat On Sensipar and Epo Nephrology on the case. F/U recommendations Need to assess whether dialysis catheter is involved HTN Metoprolol daily Continue to monitor Leg Pain Physical Therapy Continue PT while in house. Patient does not desire CARLOS ENRIQUE. Prophylactic Measure Hep SC Q12 SCDs GI PPx not currently indicated Discussed with attending. All planning and management per Dr. Ureña.
[2017-10-07] MEDS: Epoetin Alfa 10,000 unit/ml Dialysis IV SCH (10:40)
--- NOTE | 2017-10-07 10:49 | CP.PCM.PN ---
Subjective - Date & Time of Evaluation Date of Evaluation: 10/07/17 Time of Evaluation: 08:00 - Subjective Subjective: afeb nad Objective - Vital Signs/Intake and Output Vital Signs (last 24 hours): Temp Pulse Resp BP Pulse Ox 97.8 F 80 19 136/75 100 10/07/17 10:00 10/07/17 10:00 10/07/17 10:00 10/07/17 10:30 10/07/17 10:00 - Medications Medications: Current Medications Ascorbic Acid (Vitamin C 500 Mg Tab) 1,500 mg PO DAILY [facility] Last Admin: 10/07/17 08:49 Dose: 1,500 mg Cinacalcet (Sensipar) 30 mg PO DAILY [facility] Last Admin: 10/07/17 08:51 Dose: 30 mg Epoetin Santo (Procrit) 10,000 unit IV TTS [facility] Last Admin: 10/07/17 10:40 Dose: 10,000 unit Heparin Sodium (Porcine) (Heparin) 5,000 units SC Q12 [facility] Last Admin: 10/07/17 08:41 Dose: 5,000 units Vancomycin/Sodium Chloride (Vancomycin 1 Gm/Ns 200 Ml) 1 gm in 200 mls @ 166.7 mls/hr IVPB TTS [facility] PRN Reason: Protocol Stop: 10/09/17 10:01 Last Admin: 10/04/17 18:00 Dose: 166.7 mls/hr Metoprolol Succinate (Toprol Xl) 100 mg PO DAILY [facility] Last Admin: 10/06/17 09:59 Dose: Not Given Oxycodone/Acetaminophen (Percocet 5/325 Mg Tab) 1 tab PO Q6H PRN PRN Reason: Pain, moderate (4-7) Stop: 10/08/17 21:56 Last Admin: 10/07/17 08:41 Dose: 1 tab Saccharomyces Boulardii (Florastor) 250 mg PO BID [facility] Last Admin: 10/07/17 08:41 Dose: 250 mg Sertraline HCl (Zoloft) 50 mg PO BID [facility] Last Admin: 10/07/17 08:41 Dose: 50 mg - Labs Labs: 10/07/17 06:38 10/07/17 06:38 PT 13.9 SECONDS (9.7-12.2) H 10/06/17 07:41 INR 1.2 10/06/17 07:41 APTT 33 SECONDS (21-34) 10/02/17 13:32 - Constitutional Appears: Non-toxic, Chronically Ill - Head Exam Head Exam: NORMOCEPHALIC - Eye Exam Eye Exam: PERRL - ENT Exam ENT Exam: Mucous Membranes Dry - Neck Exam Neck Exam: absent: Thyromegaly - Respiratory Exam Respiratory Exam: Decreased Breath Sounds - Cardiovascular Exam Cardiovascular Exam: REGULAR RHYTHM - GI/Abdominal Exam GI & Abdominal Exam: Distended, Soft - Rectal Exam Rectal Exam: Deferred - Exam Exam: NORMAL INSPECTION Assessment and Plan (1) Bacteremia due to Gram-positive bacteria Status: Acute (2) CHF (congestive heart failure) Status: Acute (3) ESRD (end stage renal disease) on dialysis Status: Acute (4) Positive blood culture Status: Acute (5) Appendicitis Status: Acute (6) Bacteremia due to Gram-positive bacteria Status: Acute (7) CHF (congestive heart failure) Status: Acute (8) End stage renal disease Status: Acute - Assessment and Plan (Free Text) Assessment: TEEpostponed cont iv rx
[2017-10-07] MEDS: Metoprolol Succinate 100 mg XL Tab PO SCH ×2 (12:24→15:00)
[2017-10-07] MEDS: Vancomycin 1 gm/NS 200 ml 1 GM/200 ML BAG IVPB SCH ×2 (12:25→15:00)
--- NOTE | 2017-10-07 12:55 | CP.PCM.PN ---
Subjective - Date & Time of Evaluation Date of Evaluation: 10/07/17 Time of Evaluation: 12:54 - Subjective Subjective: seen and examined SILAS postponed hd yesterday afebrile, bp stable seen in hd tolerated well. avf used w/o problems Objective - Vital Signs/Intake and Output Vital Signs (last 24 hours): Temp Pulse Resp BP Pulse Ox 97.8 F 80 19 133/65 100 10/07/17 10:00 10/07/17 10:00 10/07/17 10:00 10/07/17 11:30 10/07/17 10:00 - Medications Medications: Current Medications Ascorbic Acid (Vitamin C 500 Mg Tab) 1,500 mg PO DAILY [facility] Last Admin: 10/07/17 12:25 Dose: Not Given Cinacalcet (Sensipar) 30 mg PO DAILY [facility] Last Admin: 10/07/17 12:24 Dose: Not Given Epoetin Santo (Procrit) 10,000 unit IV TTS [facility] Last Admin: 10/07/17 10:40 Dose: 10,000 unit Heparin Sodium (Porcine) (Heparin) 5,000 units SC Q12 [facility] Last Admin: 10/07/17 12:23 Dose: Not Given Vancomycin/Sodium Chloride (Vancomycin 1 Gm/Ns 200 Ml) 1 gm in 200 mls @ 166.7 mls/hr IVPB TTS [facility] PRN Reason: Protocol Stop: 10/09/17 10:01 Last Admin: 10/07/17 12:25 Dose: Not Given Metoprolol Succinate (Toprol Xl) 100 mg PO DAILY [facility] Last Admin: 10/07/17 12:24 Dose: Not Given Oxycodone/Acetaminophen (Percocet 5/325 Mg Tab) 1 tab PO Q6H PRN PRN Reason: Pain, moderate (4-7) Stop: 10/08/17 21:56 Last Admin: 10/07/17 08:41 Dose: 1 tab Saccharomyces Boulardii (Florastor) 250 mg PO BID [facility] Last Admin: 10/07/17 12:22 Dose: Not Given Sertraline HCl (Zoloft) 50 mg PO BID [facility] Last Admin: 10/07/17 12:25 Dose: Not Given - Labs Labs: 10/07/17 06:38 10/07/17 06:38 PT 13.9 SECONDS (9.7-12.2) H 10/06/17 07:41 INR 1.2 10/06/17 07:41 APTT 33 SECONDS (21-34) 10/02/17 13:32 - Constitutional Appears: No Acute Distress, Chronically Ill - Head Exam Head Exam: NORMAL INSPECTION, NORMOCEPHALIC - Eye Exam Eye Exam: Normal appearance, PERRL - ENT Exam ENT Exam: Mucous Membranes Moist, Normal Exam - Neck Exam Neck Exam: Full ROM, Normal Inspection - Respiratory Exam Respiratory Exam: Clear to Ausculation Bilateral, NORMAL BREATHING PATTERN - Cardiovascular Exam Cardiovascular Exam: REGULAR RHYTHM, RRR - GI/Abdominal Exam GI & Abdominal Exam: Distended, Soft, Normal Bowel Sounds - Extremities Exam Extremities Exam: Normal Inspection (lue avf w/ thrill. rt chest permcath) Assessment and Plan (1) Bacteremia due to Gram-positive bacteria Status: Acute (2) CHF (congestive heart failure) Status: Acute (3) ESRD (end stage renal disease) on dialysis Status: Acute (4) Positive blood culture Status: Acute (5) HTN (hypertension) Status: Acute - Assessment and Plan (Free Text) Assessment: maintain iv vancomycin hd mwf await silas to decide duration of antibiotics recommend dc permcath
--- NOTE | 2017-10-07 18:56 | CP.PCM.CON ---
History of Present Illness - History of Present Illness History of Present Illness: Vascular surgery consult note for Dr. Muñoz Consulted for: Possible catheter associated bacteremia Patient is a 66F with ESRD on HD. Patient had a hybrid AVshunt placed in her left arm and a HD permacath in her RIJ 2 months ago. As an outpatient patient had chills and a possible blood culture. Patient was admitted and started on IV antibiotics--blood cultures have no growth for 5 days at this point. HD was successfully completed through the left AV shunt today and Vascular surgery was consulted for removal of the permacath Review of Systems - Review of Systems All systems: reviewed and no additional remarkable complaints except (as per HPI ) Review of Systems: pain in her right arm and her left ankle Past Patient History - Infectious Disease Hx of Infectious Diseases: None - Past Medical History & Family History Past Medical History?: Yes - Past Social History Smoking Status: Former Smoker Chewing Tobacco Use: No Cigar Use: No Alcohol: None Drugs: Denies Home Situation {Lives}: [facility] - CARDIAC Hx Congestive Heart Failure: Yes Hx Hypertension: Yes - PULMONARY Hx Respiratory Disorders: No - NEUROLOGICAL Hx Transient Ischemic Attacks (TIA): Yes - HEENT Hx HEENT Problems: No - RENAL Hx Chronic Kidney Disease: Yes Type of Dialysis Access: R chest perma cath Date of Last Dialysis Treatment: 10/02/17 - ENDOCRINE/METABOLIC Hx Endocrine Disorders: No - HEMATOLOGICAL/ONCOLOGICAL Hx Blood Disorders: Yes - INTEGUMENTARY Hx Dermatological Problems: No - MUSCULOSKELETAL/RHEUMATOLOGICAL Hx Arthritis: Yes (OA) - GASTROINTESTINAL Hx Diverticulitis: Yes Hx Pancreatitis: Yes - GENITOURINARY/GYNECOLOGICAL Hx Genitourinary Disorders: No - PSYCHIATRIC Hx Anxiety: Yes Hx Substance Use: No - SURGICAL HISTORY Hx Cholecystectomy: Yes - ANESTHESIA Hx Anesthesia: Yes Hx Anesthesia Reactions: No Hx Malignant Hyperthermia: No Meds Allergies/Adverse Reactions: Allergies Allergy/AdvReac Type Severity Reaction Status Date / Time aspirin Allergy NAUSEA Verified 10/02/17 12:54 lactose Allergy NAUSEA Verified 10/02/17 12:54 - Medications Medications: Current Medications Ascorbic Acid (Vitamin C 500 Mg Tab) 1,500 mg PO DAILY [facility] Last Admin: 10/07/17 12:25 Dose: Not Given Cinacalcet (Sensipar) 30 mg PO DAILY [facility] Last Admin: 10/07/17 12:24 Dose: Not Given Epoetin Santo (Procrit) 10,000 unit IV TTS [facility] Last Admin: 10/07/17 10:40 Dose: 10,000 unit Heparin Sodium (Porcine) (Heparin) 5,000 units SC Q12 [facility] Last Admin: 10/07/17 12:23 Dose: Not Given Vancomycin/Sodium Chloride (Vancomycin 1 Gm/Ns 200 Ml) 1 gm in 200 mls @ 166.7 mls/hr IVPB TTS [facility] PRN Reason: Protocol Stop: 10/09/17 10:01 Last Admin: 10/07/17 15:00 Dose: 166.7 mls/hr Metoprolol Succinate (Toprol Xl) 100 mg PO DAILY [facility] Last Admin: 10/07/17 15:00 Dose: 100 mg Oxycodone/Acetaminophen (Percocet 5/325 Mg Tab) 1 tab PO Q6H PRN PRN Reason: Pain, moderate (4-7) Stop: 10/08/17 21:56 Last Admin: 10/07/17 15:09 Dose: 1 tab Saccharomyces Boulardii (Florastor) 250 mg PO BID [facility] Last Admin: 10/07/17 18:08 Dose: 250 mg Sertraline HCl (Zoloft) 50 mg PO BID [facility] Last Admin: 10/07/17 18:08 Dose: 50 mg Physical Exam - Constitutional Appears: Well, Non-toxic, No Acute Distress - Head Exam Head Exam: ATRAUMATIC, NORMOCEPHALIC - Eye Exam Eye Exam: Normal appearance. absent: Conjunctival injection, Scleral icterus - ENT Exam ENT Exam: Mucous Membranes Moist, Normal Oropharynx - Respiratory Exam Respiratory Exam: NORMAL BREATHING PATTERN. absent: Accessory Muscle Use, Respiratory Distress - GI/Abdominal Exam GI & Abdominal Exam: absent: Distended - Extremities Exam Extremities exam: Negative for: calf tenderness, pedal edema Additional comments: left AV shunt with a dressing over it. BL hands warm and normal color. - Neurological Exam Neurological exam: Alert, Oriented x3 - Psychiatric Exam Psychiatric exam: Normal Affect, Normal Mood - Skin Skin Exam: Dry, Normal Color, Warm - Additional Findings Additional findings: permacath in the right anterior chest with no surrounding erythema, swelling, or purulent drainage or bleeding. Results - Vital Signs Recent Vital Signs: Last Vital Signs Temp 98.3 F 10/07/17 15:00 Pulse 87 10/07/17 15:00 Resp 20 10/07/17 15:00 BP 157/70 H 10/07/17 15:00 Pulse Ox 97 10/07/17 15:00 - Labs Result Diagrams: 10/07/17 06:38 10/07/17 06:38 Labs: Laboratory Results - last 24 hr 10/07/17 10/07/17 06:38 06:38 WBC 9.0 RBC 3.20 L Hgb 10.0 L Hct 30.3 L MCV 94.7 MCH 31.2 H MCHC 32.9 L RDW 16.3 H Plt Count 243 MPV 7.6 Neut % (Auto) 56.9 Lymph % (Auto) 18.4 L [place] % (Auto) 16.4 H Eos % (Auto) 7.3 H Baso % (Auto) 1.0 Neut # (Auto) 5.1 Lymph # (Auto) 1.7 [place] # (Auto) 1.5 H Eos # (Auto) 0.7 Baso # (Auto) 0.1 Sodium 133 Potassium 4.4 Chloride 93 L Carbon Dioxide 27 Anion Gap 18 BUN 39 H Creatinine 5.5 H Est GFR ( Amer) 9 Est GFR (Non-Af Amer) 8 Random Glucose 86 Calcium 8.0 L Phosphorus 3.5 Magnesium 2.2 Total Bilirubin 0.8 AST 37 H ALT 20 Alkaline Phosphatase 607 H Total Protein 7.3 Albumin 3.2 L Globulin 4.1 H Albumin/Globulin Ratio 0.8 L Assessment & Plan - Assessment and Plan (Free Text) Assessment: 66F with ESRD with possible HD catheter associated bacteremia Plan: -HD cath in the right IJ removed at bedside with Dr. Muñoz present with no negative sequela, patient tolerated well, no sign of hematoma or active bleed, pressure dressing applied. -Use HD shunt for further HD -Medical management per primary, antibiotics per ID -Thank you for this consult. Please reach out to the surgical team for any concerns Seen and discussed with Dr. Wanda Kessler, PGY2
--- NOTE | 2017-10-07 23:20 | CP.PCM.PN ---
Subjective - Date & Time of Evaluation Date of Evaluation: 10/07/17 Time of Evaluation: 17:05 - Subjective Subjective: Patient seen and evaluated Denies chest pain and dyspnea For SILAS tomorrow Objective - Vital Signs/Intake and Output Vital Signs (last 24 hours): Temp Pulse Resp BP Pulse Ox 98.3 F 87 20 157/70 H 97 10/07/17 15:00 10/07/17 15:00 10/07/17 15:00 10/07/17 15:00 10/07/17 15:00 Intake and Output: 10/07/17 10/08/17 18:59 06:59 Intake Total 500 Balance 500 - Medications Medications: Current Medications Ascorbic Acid (Vitamin C 500 Mg Tab) 1,500 mg PO DAILY [facility] Last Admin: 10/07/17 12:25 Dose: Not Given Cinacalcet (Sensipar) 30 mg PO DAILY [facility] Last Admin: 10/07/17 12:24 Dose: Not Given Epoetin Santo (Procrit) 10,000 unit IV TTS [facility] Last Admin: 10/07/17 10:40 Dose: 10,000 unit Heparin Sodium (Porcine) (Heparin) 5,000 units SC Q12 [facility] Last Admin: 10/07/17 21:23 Dose: Not Given Vancomycin/Sodium Chloride (Vancomycin 1 Gm/Ns 200 Ml) 1 gm in 200 mls @ 166.7 mls/hr IVPB TTS [facility] PRN Reason: Protocol Stop: 10/09/17 10:01 Last Admin: 10/07/17 15:00 Dose: 166.7 mls/hr Metoprolol Succinate (Toprol Xl) 100 mg PO DAILY [facility] Last Admin: 10/07/17 15:00 Dose: 100 mg Oxycodone/Acetaminophen (Percocet 5/325 Mg Tab) 1 tab PO Q6H PRN PRN Reason: Pain, moderate (4-7) Stop: 10/08/17 21:56 Last Admin: 10/07/17 21:26 Dose: 1 tab Saccharomyces Boulardii (Florastor) 250 mg PO BID [facility] Last Admin: 10/07/17 18:08 Dose: 250 mg Sertraline HCl (Zoloft) 50 mg PO BID [facility] Last Admin: 10/07/17 18:08 Dose: 50 mg - Labs Labs: 10/07/17 06:38 10/07/17 06:38 PT 13.9 SECONDS (9.7-12.2) H 10/06/17 07:41 INR 1.2 10/06/17 07:41 APTT 33 SECONDS (21-34) 10/02/17 13:32
--- NOTE | 2017-10-08 07:15 | CP.PCM.PN ---
Subjective - Date & Time of Evaluation Date of Evaluation: 10/08/17 Time of Evaluation: 07:00 - Subjective Subjective: PGY 2 Med Note- Dr. Ureña's service Patient seen and examined in no apparent acute distress. Patient denies subjective fevers or chills, nausea, vomiting, diarrhea or constipation at this time. Patient is for SILAS this morning with Dr. Stallworth. Objective - Vital Signs/Intake and Output Vital Signs (last 24 hours): Temp Pulse Resp BP Pulse Ox 98.4 F 69 20 121/66 98 10/08/17 06:50 10/08/17 06:50 10/08/17 06:50 10/08/17 06:50 10/08/17 06:50 Intake and Output: 10/08/17 10/08/17 06:59 18:59 Intake Total 500 Balance 500 - Medications Medications: Current Medications Ascorbic Acid (Vitamin C 500 Mg Tab) 1,500 mg PO DAILY [facility] Last Admin: 10/07/17 12:25 Dose: Not Given Cinacalcet (Sensipar) 30 mg PO DAILY [facility] Last Admin: 10/07/17 12:24 Dose: Not Given Epoetin Santo (Procrit) 10,000 unit IV TTS [facility] Last Admin: 10/07/17 10:40 Dose: 10,000 unit Heparin Sodium (Porcine) (Heparin) 5,000 units SC Q12 [facility] Last Admin: 10/07/17 21:23 Dose: Not Given Vancomycin/Sodium Chloride (Vancomycin 1 Gm/Ns 200 Ml) 1 gm in 200 mls @ 166.7 mls/hr IVPB TTS [facility] PRN Reason: Protocol Stop: 10/09/17 10:01 Last Admin: 10/07/17 15:00 Dose: 166.7 mls/hr Metoprolol Succinate (Toprol Xl) 100 mg PO DAILY [facility] Last Admin: 10/07/17 15:00 Dose: 100 mg Oxycodone/Acetaminophen (Percocet 5/325 Mg Tab) 1 tab PO Q6H PRN PRN Reason: Pain, moderate (4-7) Stop: 10/08/17 21:56 Last Admin: 10/07/17 21:26 Dose: 1 tab Saccharomyces Boulardii (Florastor) 250 mg PO BID [facility] Last Admin: 10/07/17 18:08 Dose: 250 mg Sertraline HCl (Zoloft) 50 mg PO BID [facility] Last Admin: 10/07/17 18:08 Dose: 50 mg - Labs Labs: 10/07/17 06:38 10/07/17 06:38 PT 13.9 SECONDS (9.7-12.2) H 10/06/17 07:41 INR 1.2 10/06/17 07:41 APTT 33 SECONDS (21-34) 10/02/17 13:32 - Constitutional Appears: Non-toxic, No Acute Distress - Head Exam Head Exam: ATRAUMATIC, NORMAL INSPECTION - Eye Exam Eye Exam: EOMI Pupil Exam: NORMAL ACCOMODATION - ENT Exam ENT Exam: Mucous Membranes Moist - Respiratory Exam Respiratory Exam: Clear to Ausculation Bilateral, NORMAL BREATHING PATTERN. absent: Respiratory Distress - Cardiovascular Exam Cardiovascular Exam: REGULAR RHYTHM, +S1, +S2 - GI/Abdominal Exam GI & Abdominal Exam: Soft, Normal Bowel Sounds. 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 Stallworth, Electrostatic Powder Coating Technician - SILAS on 10/08 showed vegetation in the SVC Dr. Dubose, ID, consulted help appreciated On Vancomycin during dialysis. Patient will need to continue for [address] Muñoz removed the port on 10/07 PM Bacteremia Blood Cultures from 10/02 negative x5 days F/U SILAS Echo. Had to be rescheduled. Will follow up on date. Dr. Stallworth, Electrostatic Powder Coating Technician on the case- F/U recommendations On Vancomycin during dialysis On Florastor ESRD (end stage renal disease) on dialysis on , , Sat On Sensipar and Epo Nephrology on the case. F/U recommendations Will need to use HD shut for further access HTN Metoprolol daily Continue to monitor Leg Pain Physical Therapy Continue PT while in house. Patient does not desire CARLOS ENRIQUE. Prophylactic Measure Hep SC Q12 SCDs GI PPx not currently indicated Discussed with attending. All planning and management per Dr. Ureña.
[2017-10-08 07:38] LABS: BASO # 0.1 K/uL (0.0-0.2); BASO % 0.8 % (0.0-2.0); EOS # 0.7 K/uL (0.0-0.7); EOS % 7.7 % (0.0-4.0); HEMOGLOBIN 10.1 g/dL (11.0-16.0); LYMPH # 1.9 K/uL (1.0-4.3); LYMPH % 21.4 % (20.0-40.0); MEAN CELL VOLUME 94.7 fL (81.0-99.0); MEAN CORPUSCULAR HEMOGLOBIN 31.4 pg (27.0-31.0); MEAN CORPUSCULAR HGB CONC 33.2 g/dL (33.0-37.0); MEAN PLATELET VOLUME 7.7 fL (7.2-11.7); MONO # 1.6 K/uL (0.0-0.8); MONO % 18.2 % (0.0-10.0); NEUT # 4.5 K/uL (1.8-7.0); NEUT % 51.9 % (50.0-75.0); RBC 3.21 Mil/uL (3.80-5.20); RED CELL DISTRIBUTION WIDTH 16.2 % (11.5-14.5); WHITE BLOOD COUNT 8.8 K/uL (4.8-10.8)
[2017-10-08] MEDS ORDERED: Propofol 10 mg/ml Inj (20 ML) ONE (07:45)
[2017-10-08] MEDS ORDERED: Lidocaine 4% (Laryng-O-Jet) Kit MM ONE (07:56)
[2017-10-08 07:58] LABS: ALB/GLOB RATIO 0.8 (1.0-2.1); ALBUMIN 3.3 g/dL (3.5-5.0); CALCIUM 8.3 mg/dl (8.6-10.4)
[2017-10-08] MEDS: Saccharomyces Boulardi 250 mg Cap PO SCH ×2 (10:25→17:41)
[2017-10-08] MEDS: Metoprolol Succinate 100 mg XL Tab PO SCH (10:26)
[2017-10-08] MEDS: Oxycodone/Acetaminophen 5/325 mg Tab PO PRN ×2 (10:30→22:01)
--- NOTE | 2017-10-08 13:12 | CP.PCM.PN ---
Subjective - Date & Time of Evaluation Date of Evaluation: 10/08/17 Time of Evaluation: 08:00 - Subjective Subjective: + SILAS + MRSA blood cont rx x 6 weeks Objective - Vital Signs/Intake and Output Vital Signs (last 24 hours): Temp Pulse Resp BP Pulse Ox 97.9 F 93 H 20 133/73 97 10/08/17 08:00 10/08/17 08:00 10/08/17 08:00 10/08/17 08:00 10/08/17 08:00 Intake and Output: 10/08/17 10/08/17 06:59 18:59 Intake Total 500 Balance 500 - Medications Medications: Current Medications Ascorbic Acid (Vitamin C 500 Mg Tab) 1,500 mg PO DAILY [facility] Last Admin: 10/08/17 10:26 Dose: 1,500 mg Cinacalcet (Sensipar) 30 mg PO DAILY [facility] Last Admin: 10/08/17 10:26 Dose: 30 mg Epoetin Santo (Procrit) 10,000 unit IV TTS [facility] Last Admin: 10/07/17 10:40 Dose: 10,000 unit Heparin Sodium (Porcine) (Heparin) 5,000 units SC Q12 [facility] Last Admin: 10/08/17 10:26 Dose: 5,000 units Vancomycin/Sodium Chloride (Vancomycin 1 Gm/Ns 200 Ml) 1 gm in 200 mls @ 166.7 mls/hr IVPB TTS [facility] PRN Reason: Protocol Stop: 10/09/17 10:01 Last Admin: 10/07/17 15:00 Dose: 166.7 mls/hr Metoprolol Succinate (Toprol Xl) 100 mg PO DAILY [facility] Last Admin: 10/08/17 10:26 Dose: 100 mg Oxycodone/Acetaminophen (Percocet 5/325 Mg Tab) 1 tab PO Q6H PRN PRN Reason: Pain, moderate (4-7) Stop: 10/08/17 21:56 Last Admin: 10/08/17 10:30 Dose: 1 tab Saccharomyces Boulardii (Florastor) 250 mg PO BID [facility] Last Admin: 10/08/17 10:25 Dose: 250 mg Sertraline HCl (Zoloft) 50 mg PO BID [facility] Last Admin: 10/08/17 10:26 Dose: 50 mg - Labs Labs: 10/08/17 07:20 10/08/17 07:20 PT 13.9 SECONDS (9.7-12.2) H 10/06/17 07:41 INR 1.2 10/06/17 07:41 APTT 33 SECONDS (21-34) 10/02/17 13:32 - Constitutional Appears: Non-toxic, Chronically Ill - Head Exam Head Exam: NORMOCEPHALIC - Eye Exam Eye Exam: PERRL - ENT Exam ENT Exam: Mucous Membranes Dry - Neck Exam Neck Exam: absent: Lymphadenopathy - Respiratory Exam Respiratory Exam: Decreased Breath Sounds - Cardiovascular Exam Cardiovascular Exam: REGULAR RHYTHM - GI/Abdominal Exam GI & Abdominal Exam: Distended, Soft Assessment and Plan (1) Bacteremia due to Gram-positive bacteria Status: Acute (2) CHF (congestive heart failure) Status: Acute (3) ESRD (end stage renal disease) on dialysis Status: Acute (4) Positive blood culture Status: Acute (5) Appendicitis Status: Acute (6) Bacteremia due to Gram-positive bacteria Status: Acute (7) CHF (congestive heart failure) Status: Acute (8) End stage renal disease Status: Acute
--- NOTE | 2017-10-08 16:28 | CP.PCM.PN ---
Subjective - Date & Time of Evaluation Date of Evaluation: 10/08/17 Time of Evaluation: 16:26 - Subjective Subjective: s/p elizabeth today results pending no fever chronic sob no n/v/diarrha anuric no abdominal pain no palpitations no increased thirst no headache no sinus tenderness Objective - Vital Signs/Intake and Output Vital Signs (last 24 hours): Temp Pulse Resp BP Pulse Ox 98.2 F 70 20 146/71 98 10/08/17 16:00 10/08/17 16:00 10/08/17 16:00 10/08/17 16:00 10/08/17 16:00 Intake and Output: 10/08/17 10/08/17 06:59 18:59 Intake Total 500 780 Balance 500 780 - Medications Medications: Current Medications Ascorbic Acid (Vitamin C 500 Mg Tab) 1,500 mg PO DAILY [facility] Last Admin: 10/08/17 10:26 Dose: 1,500 mg Cinacalcet (Sensipar) 30 mg PO DAILY [facility] Last Admin: 10/08/17 10:26 Dose: 30 mg Epoetin Santo (Procrit) 10,000 unit IV TTS [facility] Last Admin: 10/07/17 10:40 Dose: 10,000 unit Heparin Sodium (Porcine) (Heparin) 5,000 units SC Q12 [facility] Last Admin: 10/08/17 10:26 Dose: 5,000 units Vancomycin/Sodium Chloride (Vancomycin 1 Gm/Ns 200 Ml) 1 gm in 200 mls @ 166.7 mls/hr IVPB TTS [facility] PRN Reason: Protocol Stop: 10/09/17 10:01 Last Admin: 10/07/17 15:00 Dose: 166.7 mls/hr Metoprolol Succinate (Toprol Xl) 100 mg PO DAILY [facility] Last Admin: 10/08/17 10:26 Dose: 100 mg Oxycodone/Acetaminophen (Percocet 5/325 Mg Tab) 1 tab PO Q6H PRN PRN Reason: Pain, moderate (4-7) Stop: 10/08/17 21:56 Last Admin: 10/08/17 10:30 Dose: 1 tab Saccharomyces Boulardii (Florastor) 250 mg PO BID [facility] Last Admin: 10/08/17 10:25 Dose: 250 mg Sertraline HCl (Zoloft) 50 mg PO BID [facility] Last Admin: 10/08/17 10:26 Dose: 50 mg - Labs Labs: 10/08/17 07:20 10/08/17 07:20 PT 13.9 SECONDS (9.7-12.2) H 10/06/17 07:41 INR 1.2 10/06/17 07:41 APTT 33 SECONDS (21-34) 10/02/17 13:32 - Constitutional Appears: No Acute Distress, Chronically Ill - Head Exam Head Exam: ATRAUMATIC, NORMAL INSPECTION - Eye Exam Eye Exam: EOMI Pupil Exam: NORMAL ACCOMODATION - ENT Exam ENT Exam: Mucous Membranes Moist - Neck Exam Neck Exam: Full ROM. absent: Lymphadenopathy - Respiratory Exam Respiratory Exam: Decreased Breath Sounds, Rales. absent: Accessory Muscle Use - Cardiovascular Exam Cardiovascular Exam: REGULAR RHYTHM. absent: Rubs - GI/Abdominal Exam GI & Abdominal Exam: Soft. absent: Tenderness - Extremities Exam Additional comments: right arm malrotated - Neurological Exam Neurological Exam: Alert, Awake, Oriented x3 Assessment and Plan - Assessment and Plan (Free Text) Assessment: esrd mrsa bacteremia, on AB cvc removed f/u elizabeth HD in am
--- NOTE | 2017-10-08 21:47 | CP.PCM.PN ---
Subjective - Date & Time of Evaluation Date of Evaluation: 10/08/17 Time of Evaluation: 18:30 - Subjective Subjective: Patient s/p SILAS Freely mobile ECHO density seen in SVC and RA junction (Prior lamin cath tip site) suggestive of vegetation/Infective Endocarditis Full report to follow Objective - Vital Signs/Intake and Output Vital Signs (last 24 hours): Temp Pulse Resp BP Pulse Ox 98.2 F 70 20 146/71 98 10/08/17 16:00 10/08/17 16:00 10/08/17 16:00 10/08/17 16:00 10/08/17 16:00 Intake and Output: 10/08/17 10/09/17 18:59 06:59 Intake Total 780 Balance 780 - Medications Medications: Current Medications Ascorbic Acid (Vitamin C 500 Mg Tab) 1,500 mg PO DAILY [facility] Last Admin: 10/08/17 10:26 Dose: 1,500 mg Cinacalcet (Sensipar) 30 mg PO DAILY [facility] Last Admin: 10/08/17 10:26 Dose: 30 mg Epoetin Santo (Procrit) 10,000 unit IV TTS [facility] Last Admin: 10/07/17 10:40 Dose: 10,000 unit Heparin Sodium (Porcine) (Heparin) 5,000 units SC Q12 [facility] Last Admin: 10/08/17 10:26 Dose: 5,000 units Vancomycin/Sodium Chloride (Vancomycin 1 Gm/Ns 200 Ml) 1 gm in 200 mls @ 166.7 mls/hr IVPB TTS [facility] PRN Reason: Protocol Stop: 10/09/17 10:01 Last Admin: 10/07/17 15:00 Dose: 166.7 mls/hr Metoprolol Succinate (Toprol Xl) 100 mg PO DAILY [facility] Last Admin: 10/08/17 10:26 Dose: 100 mg Oxycodone/Acetaminophen (Percocet 5/325 Mg Tab) 1 tab PO Q6H PRN PRN Reason: Pain, moderate (4-7) Stop: 10/08/17 21:56 Last Admin: 10/08/17 10:30 Dose: 1 tab Saccharomyces Boulardii (Florastor) 250 mg PO BID [facility] Last Admin: 10/08/17 17:41 Dose: 250 mg Sertraline HCl (Zoloft) 50 mg PO BID [facility] Last Admin: 04/18/18 17:41 Dose: 50 mg - Labs Labs: 10/08/17 07:20 10/08/17 07:20 PT 13.9 SECONDS (9.7-12.2) H 10/06/17 07:41 INR 1.2 10/06/17 07:41 APTT 33 SECONDS (21-34) 10/02/17 13:32
--- NOTE | 2017-10-09 07:34 | CP.PCM.PN ---
Subjective - Date & Time of Evaluation Date of Evaluation: 10/09/17 Time of Evaluation: 07:00 - Subjective Subjective: PGY 2 Med Note- Dr. Ureña's service Patient seen and examined in no apparent acute distress. Patient denies subjective fevers or chills, nausea, vomiting, diarrhea or constipation at this time. Objective - Vital Signs/Intake and Output Vital Signs (last 24 hours): Temp Pulse Resp BP Pulse Ox 97.5 F L 69 20 144/71 99 10/09/17 00:00 10/09/17 00:00 10/09/17 00:00 10/09/17 00:00 10/09/17 00:00 Intake and Output: 10/09/17 10/09/17 06:59 18:59 Intake Total 500 Balance 500 - Medications Medications: Current Medications Ascorbic Acid (Vitamin C 500 Mg Tab) 1,500 mg PO DAILY [facility] Last Admin: 10/08/17 10:26 Dose: 1,500 mg Cinacalcet (Sensipar) 30 mg PO DAILY [facility] Last Admin: 10/08/17 10:26 Dose: 30 mg Epoetin Santo (Procrit) 10,000 unit IV TTS [facility] Last Admin: 10/07/17 10:40 Dose: 10,000 unit Heparin Sodium (Porcine) (Heparin) 5,000 units SC Q12 [facility] Last Admin: 10/08/17 21:57 Dose: Not Given Vancomycin/Sodium Chloride (Vancomycin 1 Gm/Ns 200 Ml) 1 gm in 200 mls @ 166.7 mls/hr IVPB TTS [facility] PRN Reason: Protocol Stop: 10/09/17 10:01 Last Admin: 10/07/17 15:00 Dose: 166.7 mls/hr Metoprolol Succinate (Toprol Xl) 100 mg PO DAILY [facility] Last Admin: 10/08/17 10:26 Dose: 100 mg Saccharomyces Boulardii (Florastor) 250 mg PO BID [facility] Last Admin: 10/08/17 17:41 Dose: 250 mg Sertraline HCl (Zoloft) 50 mg PO BID [facility] Last Admin: 10/08/17 17:41 Dose: 50 mg - Labs Labs: 10/08/17 07:20 10/08/17 07:20 PT 13.9 SECONDS (9.7-12.2) H 10/06/17 07:41 INR 1.2 10/06/17 07:41 APTT 33 SECONDS (21-34) 10/02/17 13:32 - Constitutional Appears: Non-toxic, In Acute Distress - Head Exam Head Exam: ATRAUMATIC, NORMAL INSPECTION - Eye Exam Eye Exam: EOMI Pupil Exam: NORMAL ACCOMODATION - ENT Exam ENT Exam: Mucous Membranes Moist - Respiratory Exam Respiratory Exam: Clear to Ausculation Bilateral, NORMAL BREATHING PATTERN. 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 Stallworth, [employer] - SILAS on 10/08 showed density in SVC and RA junction ( Prior lamin cath tip site) suggestive of vegetation/Infective Endocarditis Dr. Dubose, ID, consulted help appreciated On Vancomycin during dialysis. Patient will need to continue for 6 more [address] On Florastor Dr. Muñoz removed the port on 10/07 PM Bacteremia Blood Cultures from 10/02 negative x5 days On Vancomycin during dialysis x 6 more weeks On Florastor ESRD (end stage renal disease) on dialysis on T, Th, Sat Pt due to dialysis today On Sensipar and Epo Nephrology on the case. Will need to use HD shut for further access HTN Metoprolol daily Continue to monitor Leg Pain Physical Therapy Continue PT while in house. Patient does not desire [facility]. COPD Controlled Patient is on home O2 a 3 L per minute She is stating today that her portable machine is broken at home Will write script for portable home O2 machine at3 L continuous Patient to f.u outpatient with Dr. Ureña [facility] Prophylactic Measure Hep SC Q12 SCDs GI PPx not currently indicated Discussed with attending. All planning and management per Dr. Ureña.
[2017-10-09] MEDS: Saccharomyces Boulardi 250 mg Cap PO SCH ×2 (09:40→18:37)
--- NOTE | 2017-10-09 11:08 | CP.PCM.PN ---
Subjective - Date & Time of Evaluation Date of Evaluation: 10/09/17 Time of Evaluation: 11:07 - Subjective Subjective: seen and examined feels well for hd today elizabeth noted, suspicion for endocarditis Objective - Vital Signs/Intake and Output Vital Signs (last 24 hours): Temp Pulse Resp BP Pulse Ox 98.9 F 68 20 138/73 99 10/09/17 07:58 10/09/17 07:58 10/09/17 07:58 10/09/17 07:58 10/09/17 07:58 Intake and Output: 10/09/17 10/09/17 06:59 18:59 Intake Total 500 Balance 500 - Medications Medications: Current Medications Ascorbic Acid (Vitamin C 500 Mg Tab) 1,500 mg PO DAILY [facility] Last Admin: 10/09/17 09:40 Dose: 1,500 mg Cinacalcet (Sensipar) 30 mg PO DAILY [facility] Last Admin: 10/09/17 09:40 Dose: 30 mg Epoetin Santo (Procrit) 10,000 unit IV TTS [facility] Last Admin: 10/07/17 10:40 Dose: 10,000 unit Heparin Sodium (Porcine) (Heparin) 5,000 units SC Q12 [facility] Last Admin: 10/08/17 21:57 Dose: Not Given Metoprolol Succinate (Toprol Xl) 100 mg PO DAILY [facility] Last Admin: 10/08/17 10:26 Dose: 100 mg Saccharomyces Boulardii (Florastor) 250 mg PO BID [facility] Last Admin: 10/09/17 09:40 Dose: 250 mg Sertraline HCl (Zoloft) 50 mg PO BID [facility] Last Admin: 10/09/17 09:41 Dose: 50 mg - Labs Labs: 10/08/17 07:20 10/08/17 07:20 PT 13.9 SECONDS (9.7-12.2) H 10/06/17 07:41 INR 1.2 10/06/17 07:41 APTT 33 SECONDS (21-34) 10/02/17 13:32 - Constitutional Appears: Non-toxic, No Acute Distress, Chronically Ill - Head Exam Head Exam: NORMAL INSPECTION - Eye Exam Eye Exam: Normal appearance, PERRL - ENT Exam ENT Exam: Mucous Membranes Moist, Normal Exam - Respiratory Exam Respiratory Exam: Clear to Ausculation Bilateral, NORMAL BREATHING PATTERN - Cardiovascular Exam Cardiovascular Exam: Tachycardia, REGULAR RHYTHM, RRR - GI/Abdominal Exam GI & Abdominal Exam: Distended, Soft, Normal Bowel Sounds - Extremities Exam Extremities Exam: Normal Inspection (RLE in boot, lue avf) - Neurological Exam Neurological Exam: Alert, Awake, Oriented x3 - Psychiatric Exam Psychiatric exam: Normal Affect, Normal Mood - Skin Skin Exam: Dry, Intact, Normal Color Assessment and Plan (1) Bacteremia due to Gram-positive bacteria Status: Acute (2) CHF (congestive heart failure) Status: Acute (3) ESRD (end stage renal disease) on dialysis Status: Acute (4) Positive blood culture Status: Acute (5) HTN (hypertension) Status: Acute - Assessment and Plan (Free Text) Assessment: vancomycin w/ hd, duration per ID hd tts f/u echo outpt stable from renal standpoint
[2017-10-09 14:19] LABS: BASO # 0.1 K/uL (0.0-0.2); EOS # 0.5 K/uL (0.0-0.7); EOS % 5.4 % (0.0-4.0); HEMOGLOBIN 10.2 g/dL (11.0-16.0); LYMPH # 2.1 K/uL (1.0-4.3); LYMPH % 21.3 % (20.0-40.0); MEAN CELL VOLUME 94.7 fL (81.0-99.0); MEAN CORPUSCULAR HEMOGLOBIN 31.6 pg (27.0-31.0); MEAN CORPUSCULAR HGB CONC 33.4 g/dL (33.0-37.0); MEAN PLATELET VOLUME 7.9 fL (7.2-11.7); MONO # 1.9 K/uL (0.0-0.8); MONO % 19.7 % (0.0-10.0); NEUT # 5.1 K/uL (1.8-7.0); NEUT % 52.6 % (50.0-75.0); RBC 3.21 Mil/uL (3.80-5.20); RED CELL DISTRIBUTION WIDTH 16.3 % (11.5-14.5); WHITE BLOOD COUNT 9.7 K/uL (4.8-10.8)
[2017-10-09] MEDS: Metoprolol Succinate 100 mg XL Tab PO SCH (14:20)
[2017-10-09] MEDS: Epoetin Alfa 10,000 unit/ml Dialysis IV SCH (14:34)
[2017-10-09 14:35] LABS: ALB/GLOB RATIO 0.8 (1.0-2.1); ALBUMIN 3.3 g/dL (3.5-5.0); CALCIUM 6.9 mg/dl (8.6-10.4)
[2017-10-09] MEDS: Vancomycin 1 gm/NS 200 ml 1 GM/200 ML BAG IVPB SCH (16:20)
[2017-10-09 18:18] VITALS: BP 152/45; PULSE 79; RESP 20; TEMP 97.9; O2SAT 99
--- NOTE | 2017-10-12 08:37 | CARD ---
APPROVED REPORT EXAM: Transesophageal echocardiogram with color flow Doppler. INDICATION Infection : Rule out subacute bacterial endocarditis Mitral Valve E/A ratio0.0 TDI E/Lateral E'0.0E/Medial E'0.0 Reason For Test : Rule out endocarditis. PROCEDURE After obtaining informed consent, patient underwent transesophageal echo in the [employer]. Type of Sedation : Conscious Sedation Sedation was provided by anesthesiologist. Sedation was achieved with intravenously. The SILAS was performed complications. Throughout the procedure, the blood pressure, pulse oximetry, cardiac rhythm, and rate were monitored. The patient tolerated the procedure without adverse effects. Recovery from conscious sedation was uneventful and vital signs were stable. LEFT VENTRICLE The left ventricle is normal size. There is normal left ventricular wall thickness. Left ventricle systolic function is normal. The Ejection Fraction is >55%. There is normal LV segmental wall motion. No left ventricle thrombus noted on this study. There is no ventricular septal defect visualized. RIGHT VENTRICLE The right ventricle is moderately dilated. The right ventricular systolic function is normal. ATRIA The left atrium size is normal. The right atrium is moderately dilated. The interatrial septum is intact with no evidence for an atrial septal defect. AORTIC VALVE The aortic valve is normal in structure. No aortic regurgitation is present. There is no aortic valvular stenosis. There is no aortic valvular vegetation. MITRAL VALVE The mitral valve is normal in structure. No mitral valve vegetation seen There is no mitral valve stenosis. Mitral regurgitation is mild. TRICUSPID VALVE The tricuspid valve is normal in structure. There is moderate to severe tricuspid regurgitation. There is no tricuspid valve prolapse or vegetation. There is no tricuspid valve stenosis. PULMONIC VALVE The pulmonary valve is normal in structure. There is no pulmonic valvular regurgitation. There is no pulmonic valvular stenosis. GREAT VESSELS The aortic root is normal in size. There is 2.1cm long freely mobile mass seen attached to SVC at the site of SVC and RA junction. Most likely vegetation given the clinical presentation and the positive blood cutltures <Conclusion> Left ventricle systolic function is normal. The Ejection Fraction is >55%. The right ventricle is moderately dilated. The right ventricular systolic function is normal. The right atrium is moderately dilated. The interatrial septum is intact with no evidence for an atrial septal defect. The aortic valve is normal in structure. There is no aortic valvular vegetation. The mitral valve is normal in structure. Mitral regurgitation is mild. The mitral valve is normal in structure. No mitral valve vegetation seen The tricuspid valve is normal in structure. There is moderate to severe tricuspid regurgitation. There is no tricuspid valve prolapse or vegetation. The pulmonary valve is normal in structure. The aortic root is normal in size. There is 2.1cm long freely mobile mass seen attached to SVC at the site of SVC and RA junction. Most likely vegetation given the clinical presentation and the positive blood cutltures Infectictive Endocarditis at the site of previous catheter site (SVC/RA junction)
--- NOTE | 2017-10-20 10:44 | DS ---
The patient admitted to the hospital with a chief complaint of weakness, fatigue, tiredness. Came to the ER, advised admission. The patient was placed on bedrest, supportive care. The patient showed gradual improvement, discharged, to be followed up as an outpatient. Lyle Ureña MD
== END 2017-10-09 19:50 | disposition home or self-care (01) | DRG 871 ==
LOC: C.ER 12:48 → C.9E 14:39 → C.3T 14:39
PROVIDERS: ADMIT Internal Medicine Pulmonary Disease; ATTEND Internal Medicine Pulmonary Disease
PROC: 5A1D70Z Performance of Urinary Filtration, Intermittent, Less than 6 Hours Per Day (ICD-10-PCS; 2017-10-03)
PROC: B24BZZ4 Ultrasonography of Heart with Aorta, Transesophageal (ICD-10-PCS; principal; 2017-10-06 15:00)
PROC: B24BZZ4 Ultrasonography of Heart with Aorta, Transesophageal (ICD-10-PCS; 2017-10-08)
DX: A41.02 Sepsis due to Methicillin resistant Staphylococcus aureus (principal); N18.6 End stage renal disease; I33.0 Acute and subacute infective endocarditis; I13.2 Hypertensive heart and chronic kidney disease with heart failure and with stage 5 chronic kidney disease, or end stage renal disease; T86.12 Kidney transplant failure; N25.81 Secondary hyperparathyroidism of renal origin; K35.80 Unspecified acute appendicitis; I42.9 Cardiomyopathy, unspecified; I50.9 Heart failure, unspecified; Z99.2 Dependence on renal dialysis; Y83.0 Surgical operation with transplant of whole organ as the cause of abnormal reaction of the patient, or of later complication, without mention of misadventure at the time of the procedure; M79.7 Fibromyalgia; M81.0 Age-related osteoporosis without current pathological fracture; J44.9 Chronic obstructive pulmonary disease, unspecified; D64.9 Anemia, unspecified; B95.62 Methicillin resistant Staphylococcus aureus infection as the cause of diseases classified elsewhere; Z86.73 Personal history of transient ischemic attack (TIA), and cerebral infarction without residual deficits; Z87.891 Personal history of nicotine dependence; Z99.81 Dependence on supplemental oxygen

== ENCOUNTER 2017-12-19 10:20 | Observation (INO) | payer MEDICARE ==
[2017-12-19 10:21] VITALS: BMI 23.8
--- NOTE | 2017-12-19 10:54 | C.PDOC ---
History Of Present Illness 67 Y/O FEMALE PRESENTS TO ED SENT BY DR. LEVIN FOR FURTHER EVALUATION OF BLEEDING FROM AV SHUNT ON LEFT ARM SINCE YESTERDAY. AT ED PATIENT C/O PERSISTENT BLEEDING AND DENIES WEAKNESS, FEVER, CHILLS, NAUSEA, VOMITING, NUMBNESS OR ANY OTHER COMPLAINTS AT THIS TIME. Time Seen by Provider: 12/19/17 10:44 Chief Complaint (Nursing): Vascular Access Device Problem History Per: Patient History/Exam Limitations: no limitations Onset/Duration Of Symptoms: Days Current Symptoms Are (Timing): Still Present Past Medical History Reviewed: Historical Data, Nursing Documentation, Vital Signs Vital Signs: Last Vital Signs Temp 99.1 F 12/19/17 10:27 Pulse 70 12/19/17 10:27 Resp 20 12/19/17 10:27 BP 118/61 12/19/17 10:27 Pulse Ox 96 12/19/17 10:59 - Medical History PMH: Anxiety, Arthritis (OA), CHF, Diverticulitis, Fibromyalgia, Fractures ( Current right leg fx, RUE, LLE), HTN, Osteoporosis, Pancreatitis, Pneumonia, End Stage Renal Disease, Chronic Kidney Disease, TIA Surgical History: Cholecystectomy - [facility] (10/02/17) BUNIONECT/SFT/OSTEOTOMY (06/04/13) DILATION OF L SUBCLAV VEIN WITH INTRALUM DEV, PERC APPROACH (08/02/17) IMMOBILIZATION OF LEFT LOWER LEG USING SPLINT (04/28/17) IMMOBILIZATION OF RIGHT UPPER EXTREMITY USING SPLINT (04/28/17) INSERT INFUSION DEV IN R INT JUGULAR VEIN, PERC (08/02/17) OPEN REDUCT-INT FIX TOE (06/04/13) REVISION OF INFUSION DEVICE IN UPPER ARTERY, OPEN APPROACH (08/02/17) ULTRASONOGRAPHY OF HEART WITH AORTA, TRANSESOPHAGEAL (10/02/17) ULTRASONOGRAPHY OF RIGHT JUGULAR VEINS, GUIDANCE (08/02/17) Family History: States: No Known Family Hx - Social History Hx Alcohol Use: No Hx Substance Use: No - Immunization History Hx Tetanus Toxoid Vaccination: No Hx Influenza Vaccination: No Hx Pneumococcal Vaccination: No Review Of Systems Constitutional: Negative for: Fever, Chills Gastrointestinal: Negative for: Nausea, Vomiting Skin: Positive for: Other (AV shunt bleeding left forearm) Neurological: Negative for: Weakness, Numbness Physical Exam - Physical Exam Appears: Non-toxic, No Acute Distress Skin: Warm, Dry, Other (AV shunt to left forearm with compressive bandage in place administered in clinic. ) Head: Atraumatic, Normacephalic Eye(s): bilateral: Normal Inspection Oral Mucosa: Moist Neck: Normal ROM, Supple Cardiovascular: Rhythm Regular Respiratory: Normal Breath Sounds, No Rales, No Rhonchi, No Wheezing Extremity: Capillary Refill (<2 seconds), No Deformity, Other (cast to left lower leg) Neurological/Psych: Oriented x3, Normal Speech ED Course And Treatment O2 Sat by Pulse Oximetry: 96 (RA) Progress - Re-Evaluation Re-evaluation Note: 12/19/17 10:46 D/W SURG RESIDENT WILL EVAL INER 12/19/17 10:59 PER REFERRAL RX FROM DR LEVIN, ADMIT TO HIS SERVICE, PREOP LABS - Data Reviewed Data Reviewed: Lab, Diagnostic imaging, Old records Disposition Counseled Patient/Family Regarding: Studies Performed, Diagnosis - Disposition Disposition: HOSPITALIZED Disposition Time: 10:58 Condition: STABLE Forms: [facility] (Lux[place]ish) - POA Present On Arrival: None - Clinical Impression Clinical Impression: Hemorrhage of arteriovenous fistula - Scribe Statement The provider has reviewed the documentation as recorded by the Scribe Earl Marquis All medical record entries made by the Scribe were at my direction and personally dictated by me. I have reviewed the chart and agree that the record accurately reflects my personal performance of the history, physical exam, medical decision making, and the department course for this patient. I have also personally directed, reviewed, and agree with the discharge instructions and disposition. Decision To Admit - Pt Status Changed To: Hospital Disposition Of: SDS- Endo,OR,Cath,IR - . Bed Request Type: Same Day Surgery Admitting Physician: Zach Levin Jr. Patient Diagnosis: Hemorrhage of arteriovenous fistula
[2017-12-19 11:37] LABS: BASO # 0.1 K/uL (0.0-0.2); BASO % 1.3 % (0.0-2.0); EOS # 0.5 K/uL (0.0-0.7); HEMOGLOBIN 9.8 g/dL (11.0-16.0); LYMPH # 1.3 K/uL (1.0-4.3); LYMPH % 17.3 % (20.0-40.0); MEAN CELL VOLUME 91.5 fL (81.0-99.0); MEAN CORPUSCULAR HEMOGLOBIN 30.7 pg (27.0-31.0); MEAN CORPUSCULAR HGB CONC 33.6 g/dL (33.0-37.0); MEAN PLATELET VOLUME 7.8 fL (7.2-11.7); MONO # 1.4 K/uL (0.0-0.8); MONO % 18.6 % (0.0-10.0); NEUT # 4.3 K/uL (1.8-7.0); NEUT % 55.8 % (50.0-75.0); RBC 3.2 Mil/uL (3.80-5.20); RED CELL DISTRIBUTION WIDTH 17.6 % (11.5-14.5); WHITE BLOOD COUNT 7.8 K/uL (4.8-10.8)
[2017-12-19 11:47] LABS: INR 1.2; PROTHROMBIN TIME 12.7 SECONDS (9.7-12.2)
[2017-12-19 11:56] LABS: ALBUMIN 3.6 g/dL (3.5-5.0); CALCIUM 8.2 mg/dl (8.6-10.4)
--- NOTE | 2017-12-19 12:08 | RAD ---
HISTORY: Pre Op COMPARISON: 10/03/2017 TECHNIQUE: Chest PA and lateral FINDINGS: LUNGS: No active pulmonary disease. PLEURA: No significant pleural effusion identified. No pneumothorax apparent. CARDIOVASCULAR: Normal. OSSEOUS STRUCTURES: No significant abnormalities. VISUALIZED UPPER ABDOMEN: Normal. OTHER FINDINGS: None. IMPRESSION: No active disease.
--- NOTE | 2017-12-19 12:46 | CP.SDSHP ---
Same Day Surgery H & P - History Proposed Procedure: repair of bleeding fistula Pre-Op Diagnosis: Repair of bleeding fistula - Allergies Allergies: Allergies aspirin Allergy (Verified 10/02/17 12:54) NAUSEA lactose Allergy (Verified 10/02/17 12:54) NAUSEA - Physical Exam General Appearance: NAD Vital Signs: Vital Signs 12/19/17 12/19/17 10:27 11:08 Temperature 99.1 F Pulse Rate 70 Respiratory 20 Rate Blood Pressure 118/61 O2 Sat by Pulse 96 96 Oximetry Mental Status: Alert & Oriented x3 Neuro: WNL Heart: WNL Lungs: WNL GI: WNL - {Optional Preform as Required} Abdomen: WNL Integument: Other (dressing on L arm C/D/I. Good thrills.) - Impression Pt. Evaluated Today:Candidate for Anesthesia & Procedure: Yes - Date & Time Date: 12/19/17 Time: 12:46 Short Stay Discharge - Short Stay Discharge Admitting Diagnosis/Reason for Visit: SENT BY PMD Disposition: HOME/ ROUTINE
[2017-12-19] MEDS ORDERED: HEPARIN-NS 5,000 UNITS/500 ML 5,000 UNIT/500 ML BAG IV ONE (14:23)
[2017-12-19] MEDS ORDERED: Thrombin Topical 20,000 Intl Units Spray Kit TOP ONE (14:24)
[2017-12-19] MEDS ORDERED: ceFAZolin 1 gm FROZEN Premix 1 GM/50 ML ML IVPB ONE (14:53)
[2017-12-19] MEDS ORDERED: ceFAZolin 1 gm in NS 1 GM/100 ML BAG IVPB ONE (14:53)
[2017-12-19] MEDS ORDERED: Midazolam 2 MG/2 ML VIAL ONE (14:54)
[2017-12-19] MEDS ORDERED: Lidocaine Hydrochloride 20 ML INJ ONE (14:55)
[2017-12-19] MEDS ORDERED: Propofol 10 mg/ml Inj (20 ML) ONE (15:03)
--- NOTE | 2017-12-19 15:33 | PCM.SURG1 ---
Surgeon's Initial Post Op Note - Surgeon's Notes Surgeon: gallo Rating Clerk: 0 Type of Anesthesia: General Endo, IV Sedation Anesthesia Administered By: ivon Pre-Operative Diagnosis: bleeding left arm fistula Operative Findings: bleeding from venous side of old avf Post-Operative Diagnosis: same Operation Performed: revision of avf with ligation of venous side of old avf Specimen/Specimens Removed: 0 Estimated Blood Loss: EBL {In ML}: 399 Blood Products Given: N/A Drains Used: No Drains Post-Op Condition: Good Date of Surgery/Procedure: 12/19/17 Time of Surgery/Procedure: 15:33
[2017-12-19] MEDS ORDERED: Oxycodone/Acetaminophen 5/325 mg Tab PO PRN (15:34)
[2017-12-19] MEDS ORDERED: Sod Polystyrene Sulf 15 gm/60 ml Susp PO PRN (15:37)
[2017-12-19] MEDS ORDERED: Lactulose 10 gm/15 ml (Rectal Use) PR PRN (15:37)
[2017-12-19] MEDS ORDERED: Sodium Chloride 0.9% 1,000 ML IV SCH (15:45)
[2017-12-19] MEDS ORDERED: VANCOMYCIN IVPB SCH (16:30)
[2017-12-19] MEDS ORDERED: NS IVPB SCH (16:30)
[2017-12-19] MEDS ORDERED: Vancomycin 1 gm/NS 200 ml 1 GM/200 ML BAG IVPB SCH (19:00)
--- NOTE | 2017-12-20 03:02 | OP ---
PROCEDURE DATE: 12/19/2017 PREOPERATIVE DIAGNOSIS: Bleeding, left arm arteriovenous fistula. POSTOPERATIVE DIAGNOSIS: Bleeding, left arm arteriovenous fistula. PROCEDURE CARRIED OUT: Revision of arteriovenous fistula with ligation of venous side. SURGEON: Zach Muñoz Jr., MD CAFETERIA ASSOCIATE: None. ANESTHESIOLOGIST: TYPE OF ANESTHESIA: Local with sedation. INDICATIONS: The patient is a middle-aged woman with renal insufficiency, having a large aneurysmal fistula, which was ligated proximally, had a shunt placed around this, and had some retrograde flow through the fistula. She picked at this where it was picked out, bleeding pursued, clotted off above, but there was a large opening through the residual portion of the fistula. OPERATIVE FINDINGS: We achieved proximal control, which was towards the venous side. By ligating this, there was some bleeding here, which was 300 mL of blood. This was aneurysmal, but eventually we controlled this. We then removed the clot that was present, oversewn that portion of the thing, and terminated the procedure. Blood loss was 300 mL plus. Operation carried out is revision of AV fistula with ligation of venous side of residual fistula in the left upper arm. Zach Muñoz Jr., MD cc: Marcelino Yeboah MD
[2017-12-20 08:04] LABS: HEMOGLOBIN 9.3 g/dL (11.0-16.0); MEAN CELL VOLUME 92.1 fL (81.0-99.0); MEAN CORPUSCULAR HEMOGLOBIN 31.5 pg (27.0-31.0); MEAN CORPUSCULAR HGB CONC 34.2 g/dL (33.0-37.0); RBC 2.95 Mil/uL (3.80-5.20); RED CELL DISTRIBUTION WIDTH 17.4 % (11.5-14.5); WHITE BLOOD COUNT 7.4 K/uL (4.8-10.8)
[2017-12-20] MEDS ORDERED: Metoprolol Succinate 100 mg XL Tab PO SCH (10:00)
--- NOTE | 2017-12-20 10:12 | CP.PCM.CON ---
History of Present Illness - History of Present Illness History of Present Illness: 67 yo female, well known to me. Hx of failed renal transplant, ESRD, HTN, valvular heart disease,multiple fractures, presents with bleeding from left AVF site. S/p ligation yesterday with surgeon. Has a functioning graft in this arm. Will have HD today via AVG and be discharged. Review of Systems - Constitutional Constitutional: Fatigue. absent: Fever - EENT Eyes: absent: Blurred Vision, Change in Vision Nose/Mouth/Throat: absent: Nasal Congestion, Nasal Discharge - Respiratory Respiratory: absent: Cough, Dyspnea - Gastrointestinal Gastrointestinal: Abdominal Pain, Constipation - Genitourinary Additional comments: anuric - Musculoskeletal Musculoskeletal: Arthralgias, Joint Swelling, Limited Range of Motion - Neurological Neurological: absent: Confusion, Dizziness Past Patient History - Infectious Disease Hx of Infectious Diseases: None - Past Medical History & Family History Past Medical History?: Yes - Past Social History Smoking Status: Never Smoked - CARDIAC Hx Congestive Heart Failure: Yes Hx Hypertension: Yes - PULMONARY Hx Pneumonia: Yes - NEUROLOGICAL Hx Transient Ischemic Attacks (TIA): Yes - HEENT Hx HEENT Problems: No - RENAL Hx Chronic Kidney Disease: Yes - ENDOCRINE/METABOLIC Hx Endocrine Disorders: No - HEMATOLOGICAL/ONCOLOGICAL Hx Blood Disorders: Yes - INTEGUMENTARY Hx Dermatological Problems: No - MUSCULOSKELETAL/RHEUMATOLOGICAL Hx Falls: No - GASTROINTESTINAL Hx Diverticulitis: Yes Hx Pancreatitis: Yes - GENITOURINARY/GYNECOLOGICAL Hx Genitourinary Disorders: No - PSYCHIATRIC Hx Anxiety: Yes Hx Substance Use: No - SURGICAL HISTORY Hx Cholecystectomy: Yes - ANESTHESIA Hx Anesthesia: Yes Hx Anesthesia Reactions: No Hx Malignant Hyperthermia: No Meds Allergies/Adverse Reactions: Allergies Allergy/AdvReac Type Severity Reaction Status Date / Time aspirin Allergy NAUSEA Verified 10/02/17 12:54 lactose Allergy NAUSEA Verified 10/02/17 12:54 - Medications Medications: Current Medications Ascorbic Acid (Vitamin C 500 Mg Tab) 1,500 mg PO DAILY [facility] Cinacalcet (Sensipar) 30 mg PO DAILY [facility] Clonidine HCl (Catapres) 0.1 mg PO HS PRN PRN Reason: high blood pressure Sodium Chloride (Sodium Chloride 0.9%) 1,000 mls @ 5 mls/hr IV .Q24H MIC[facility] Vancomycin/Sodium Chloride (Vancomycin 1 Gm/Ns 200 Ml) 1 gm in 200 mls @ 133 mls/hr IVPB MWF [facility] Stop: 12/24/17 19:01 Last Admin: 12/19/17 19:10 Dose: 133 mls/hr Metoprolol Succinate (Toprol Xl) 100 mg PO DAILY [facility] Oxycodone/Acetaminophen (Percocet 5/325 Mg Tab) 1 tab PO Q4H PRN PRN Reason: Pain, moderate (4-7) Stop: 12/22/17 15:35 Sertraline HCl (Zoloft) 50 mg PO BID [facility] Last Admin: 12/19/17 21:09 Dose: 50 mg Sodium Polystyrene Sulfonate (Kayexalate Susp) 15 gm PO ONCE PRN Physical Exam - Constitutional Appears: No Acute Distress, Chronically Ill - Head Exam Head Exam: ATRAUMATIC, NORMAL INSPECTION - Eye Exam Eye Exam: EOMI, Normal appearance - ENT Exam ENT Exam: Mucous Membranes Moist - Neck Exam Neck exam: Positive for: Normal Inspection - Respiratory Exam Respiratory Exam: Clear to Auscultation Bilateral, NORMAL BREATHING PATTERN - Cardiovascular Exam Cardiovascular Exam: Systolic Murmur. absent: Rubs - GI/Abdominal Exam GI & Abdominal Exam: Normal Bowel Sounds, Soft. absent: Tenderness - Extremities Exam Extremities exam: Positive for: pedal edema - Neurological Exam Neurological exam: Alert, Oriented x3 - Psychiatric Exam Psychiatric exam: Normal Affect, Normal Mood Results - Vital Signs Recent Vital Signs: Last Vital Signs Temp 98.5 F 12/20/17 08:06 Pulse 82 12/20/17 08:06 Resp 20 12/20/17 08:06 BP 135/64 12/20/17 08:06 Pulse Ox 96 12/20/17 08:06 - Labs Result Diagrams: 12/20/17 07:46 12/19/17 11:31 Labs: Laboratory Results - last 24 hr 12/19/17 12/19/17 12/19/17 11:31 11:31 11:31 WBC 7.8 RBC 3.20 L Hgb 9.8 L Hct 29.3 L MCV 91.5 D MCH 30.7 MCHC 33.6 RDW 17.6 H Plt Count 236 MPV 7.8 Neut % (Auto) 55.8 Lymph % (Auto) 17.3 L Maverick % (Auto) 18.6 H Eos % (Auto) 7.0 H Baso % (Auto) 1.3 Neut # (Auto) 4.3 Lymph # (Auto) 1.3 Maverick # (Auto) 1.4 H Eos # (Auto) 0.5 Baso # (Auto) 0.1 PT 12.7 H INR 1.2 APTT 29 Sodium 137 Potassium 3.9 Chloride 89 L Carbon Dioxide 39 H Anion Gap 13 BUN 34 H Creatinine 3.2 H Est GFR ( Amer) 17 Est GFR (Non-Af Amer) 14 POC Glucose (mg/dL) Random Glucose 84 Calcium 8.2 L Total Bilirubin 1.0 AST 66 H D ALT 29 Alkaline Phosphatase 457 H D Total Protein 7.4 Albumin 3.6 Globulin 3.7 Albumin/Globulin Ratio 1.0 Blood Type Antibody Screen 12/19/17 12/19/17 12/20/17 11:31 11:34 07:46 WBC 7.4 RBC 2.95 L Hgb 9.3 L Hct 27.2 L MCV 92.1 MCH 31.5 H MCHC 34.2 RDW 17.4 H Plt Count 222 MPV 8.0 Neut % (Auto) Lymph % (Auto) Maverick % (Auto) Eos % (Auto) Baso % (Auto) Neut # (Auto) Lymph # (Auto) Maverick # (Auto) Eos # (Auto) Baso # (Auto) PT INR APTT Sodium Potassium Chloride Carbon Dioxide Anion Gap BUN Creatinine Est GFR ( Amer) Est GFR (Non-Af Amer) POC Glucose (mg/dL) 77 Random Glucose Calcium Total Bilirubin AST ALT Alkaline Phosphatase Total Protein Albumin Globulin Albumin/Globulin Ratio Blood Type O POSITIVE Antibody Screen Negative Assessment & Plan - Assessment and Plan (Free Text) Plan: post ligation of venous limb of AVF to use left AVG HD today discharge post HD
[2017-12-20 17:29] VITALS: RESP 20; TEMP 97.7; O2SAT 99
[2017-12-20 17:30] VITALS: BP 152/43; PULSE 70
--- NOTE | 2017-12-22 18:11 | CARD ---
APPROVED REPORT EKG Measurement Heart [id number] ID [id number] <Conclusion> Sinus rhythm with 1st degree AV block Incomplete right bundle branch block Nonspecific T wave abnormality. Abnormal ECG
== END 2017-12-20 18:20 | disposition home or self-care (01) ==
LOC: C.ER 10:20 → C.3T 10:20 → C.SDS 11:12 → C.9S 16:27 → C.3T 17:38
PROVIDERS: ADMIT Surgery Vascular Surgery; ATTEND Surgery Vascular Surgery
DX: T82.838A Hemorrhage due to vascular prosthetic devices, implants and grafts, initial encounter (principal); N18.6 End stage renal disease; I13.2 Hypertensive heart and chronic kidney disease with heart failure and with stage 5 chronic kidney disease, or end stage renal disease; I50.9 Heart failure, unspecified; M79.7 Fibromyalgia; M81.0 Age-related osteoporosis without current pathological fracture; Z86.73 Personal history of transient ischemic attack (TIA), and cerebral infarction without residual deficits; Y83.0 Surgical operation with transplant of whole organ as the cause of abnormal reaction of the patient, or of later complication, without mention of misadventure at the time of the procedure; T86.12 Kidney transplant failure; Y83.2 Surgical operation with anastomosis, bypass or graft as the cause of abnormal reaction of the patient, or of later complication, without mention of misadventure at the time of the procedure
CPT/HCPCS: 36415; 36832; 71046; 80053; 82948; 85025; 85027; 85610; 85730; 86850; 86900; 86920; 99285; G0378; J0690; J2250; J2704; J3370

== ENCOUNTER 2017-12-26 14:54 | Emergency (ER) | payer MEDICARE ==
[2017-12-26 15:09] VITALS: BMI 26.9
[2017-12-26 15:12] VITALS: RESP 18
--- NOTE | 2017-12-26 15:40 | C.PDOC ---
History Of Present Illness 67yo female, currently on dialysis with her last session this morning, comes to ER for evaluation of a hematoma distal to an AV fistula on her left upper arm. Patient had a similar issue and was evaluated by Dr. Muñoz on 12/19 and was discharged home. Otherwise, patient denies any fever, chills, arm weakness, numbness, other injuries. She offers no other complaints. Time Seen by Provider: 12/26/17 15:18 Chief Complaint (Nursing): Upper Extremity Problem/Injury History Per: Patient History/Exam Limitations: no limitations Onset/Duration Of Symptoms: Hrs Current Symptoms Are (Timing): Still Present Additional History Per: Patient Past Medical History Reviewed: Historical Data, Nursing Documentation, Vital Signs Vital Signs: Last Vital Signs Temp 98.3 F 12/26/17 14:55 Pulse 69 12/26/17 14:55 Resp 18 12/26/17 14:55 BP 153/65 H 12/26/17 14:55 Pulse Ox 96 12/26/17 15:40 - Medical History PMH: Anxiety, Arthritis (OA), CHF, Diverticulitis, Fibromyalgia, Fractures ( Current right leg fx, RUE, LLE), HTN, Osteoporosis, Pancreatitis, Pneumonia, End Stage Renal Disease, Chronic Kidney Disease, TIA Surgical History: Cholecystectomy - [facility] (10/02/17) BUNIONECT/SFT/OSTEOTOMY (06/04/13) DILATION OF L SUBCLAV VEIN WITH INTRALUM DEV, PERC APPROACH (08/02/17) IMMOBILIZATION OF LEFT LOWER LEG USING SPLINT (04/28/17) IMMOBILIZATION OF RIGHT UPPER EXTREMITY USING SPLINT (04/28/17) INSERT INFUSION DEV IN R INT JUGULAR VEIN, PERC (08/02/17) OPEN REDUCT-INT FIX TOE (06/04/13) REVISION OF INFUSION DEVICE IN UPPER ARTERY, OPEN APPROACH (08/02/17) ULTRASONOGRAPHY OF HEART WITH AORTA, TRANSESOPHAGEAL (10/02/17) ULTRASONOGRAPHY OF RIGHT JUGULAR VEINS, GUIDANCE (08/02/17) Family History: States: No Known Family Hx - Social History Hx Alcohol Use: No Hx Substance Use: No - Immunization History Hx Tetanus Toxoid Vaccination: No Hx Influenza Vaccination: No Hx Pneumococcal Vaccination: No Review Of Systems Except As Marked, All Systems Reviewed And Found Negative. Skin: Positive for: Other (hematoma to left upper forearm) Neurological: Negative for: Weakness, Numbness Physical Exam - Physical Exam Appears: Non-toxic, No Acute Distress Skin: Other (4x6 cm hematoma present distally and laterally of left forearm, just above elbow. No active bleeding noted.) Head: Atraumatic, Normacephalic Eye(s): bilateral: Normal Inspection Neck: Normal ROM, Supple Chest: Symmetrical Cardiovascular: Rhythm Regular Respiratory: Normal Breath Sounds Extremity: Normal ROM, No Deformity, No Swelling Neurological/Psych: Oriented x3 ED Course And Treatment O2 Sat by Pulse Oximetry: 96 Medical Decision Making Medical Decision Making: small 4x6 cm hematoma distal to but above elbow of L upper arm AV fistula seen evaled by Surgery/vascular ok for opt f/u. AV fistula still ok for normal HD use. Disposition Doctor Will See Patient In The: Office Counseled Patient/Family Regarding: Studies Performed, Diagnosis - Disposition Disposition: HOME/ ROUTINE Disposition Time: 15:39 Condition: GOOD Forms: [facility] (Dutch) - Clinical Impression Clinical Impression: Hematoma, Arteriovenous fistula - Scribe Statement The provider has reviewed the documentation as recorded by the Navarro Devine Provider Attestation: All medical record entries made by the Navarro were at my direction and personally dictated by me. I have reviewed the chart and agree that the record accurately reflects my personal performance of the history, physical exam, medical decision making, and the department course for this patient. I have also personally directed, reviewed, and agree with the discharge instructions and disposition.
[2017-12-26 15:51] VITALS: BP 151/65; PULSE 78; TEMP 98.1
[2017-12-26 15:57] VITALS: O2SAT 96
== END 2017-12-26 15:55 | disposition home or self-care (01) ==
LOC: C.ER 14:54
DX: T82.898A Other specified complication of vascular prosthetic devices, implants and grafts, initial encounter (principal); X58.XXXA Exposure to other specified factors, initial encounter